=== PATIENT | male | born 1960 | race Caucasian/White ===

== ENCOUNTER → 2019-04-28 | Outpatient (REF) | payer OTHER ==
[2019-04-28 12:24] LABS: HEMOGLOBIN A1c 5.4 %
[2019-04-28 12:28] LABS: ALBUMIN 4.2 GM/DL (3.2-5.2); ALT/SGPT 38 U/L (12-78); BILIRUBIN,TOTAL 0.4 MG/DL (0.2-1.0); BLOOD UREA NITROGEN 16 MG/DL (7-18); CARBON DIOXIDE LEVEL 25 MEQ/L (21-32); CHLORIDE LEVEL 108 MEQ/L (98-107); CHOLESTEROL LEVEL 170 MG/DL (<200); CHOLESTEROL RISK RATIO 4.857 (<5); CREATININE FOR GFR 1.24 MG/DL (0.70-1.30); GLOMERULAR FILTRATION RATE > 60.0 (>56); GLUCOSE, FASTING 106 MG/DL (70-100); HDL CHOLESTEROL 35 MG/DL (>40); NON-HDL-C 135 MG/DL; POTASSIUM SERUM 4.1 MEQ/L (3.5-5.1); SODIUM LEVEL 141 MEQ/L (136-145); TOTAL PROTEIN 7.9 GM/DL (6.4-8.2); TRIGLYCERIDES LEVEL 517 MG/DL (<150)
[2019-04-28 13:05] LABS: HEMATOCRIT 43.4 % (42.0-52.0); HEMOGLOBIN 15.3 g/dl (13.5-17.5); MEAN CORPUSCULAR HEMOGLOBIN 31.8 pg (27.0-33.0); MEAN CORPUSCULAR HGB CONC 35.3 g/dl (32.0-36.5); MEAN CORPUSCULAR VOLUME 90.2 fl (80.0-96.0); PLATELET COUNT, AUTOMATED 191 10^3/uL (150-450); RED BLOOD COUNT 4.81 10^6/uL (4.30-6.10); WHITE BLOOD COUNT 5.7 10^3/uL (4.0-10.0)
== END ==
LOC: M SFHCPLAZ 10:00
PROVIDERS: ATTEND Nurse Practitioner Family
DX: Z13.228 Encounter for screening for other metabolic disorders (principal)

== ENCOUNTER 2019-05-21 15:22 | Emergency (ER) | payer OTHER, BC ==
[~2019-05-21] VITALS: Ht 177.8 cm; Wt 118.2 kg
[2019-05-21 15:23] VITALS: BP 171/79
[2019-05-21] MEDS ORDERED: LOPE1LIQ18 PO (15:38)
--- NOTE | 2019-05-21 18:52 | REP ---
HISTORY: Pain after trauma earlier today. COMPARISON: None. Four images of the third digit only were obtained in total. There is no acute fracture or destructive osseous lesion involving the third digit of the left hand. Electronically Signed by Omid Carvajal DO 05/22/2019 10:53 A
== END 2019-05-21 16:56 | disposition home or self-care (01) ==
LOC: M ED 15:22
DX: S69.92XA Unspecified injury of left wrist, hand and finger(s), initial encounter (principal); X58.XXXA Exposure to other specified factors, initial encounter; Y92.9 Unspecified place or not applicable; Y93.9 Activity, unspecified; Y99.9 Unspecified external cause status; K50.919 Crohn's disease, unspecified, with unspecified complications; Z79.899 Other long term (current) drug therapy

== ENCOUNTER → 2019-09-22 | Outpatient (REF) | payer OTHER ==
[~2019-09-22] MED LIST: LOPE1LIQ18 PO
[2019-09-22 10:27] LABS: ALBUMIN 4.1 GM/DL (3.2-5.2); ALT/SGPT 33 U/L (12-78); BILIRUBIN,TOTAL 0.4 MG/DL (0.2-1.0); BLOOD UREA NITROGEN 14 MG/DL (7-18); CALCIUM LEVEL 9.5 MG/DL (8.5-10.1); CARBON DIOXIDE LEVEL 24 MEQ/L (21-32); CHLORIDE LEVEL 111 MEQ/L (98-107); CHOLESTEROL LEVEL 181 MG/DL (<200); CHOLESTEROL RISK RATIO 5.323 (<5); CREATININE FOR GFR 1.26 MG/DL (0.70-1.30); GLOMERULAR FILTRATION RATE > 60.0 (>56); GLUCOSE, FASTING 90 MG/DL (70-100); HDL CHOLESTEROL 34 MG/DL (>40); LDL CHOLESTEROL 88 MG/DL (<100); NON-HDL-C 147 MG/DL; POTASSIUM SERUM 4.2 MEQ/L (3.5-5.1); SODIUM LEVEL 143 MEQ/L (136-145); TOTAL PROTEIN 7.6 GM/DL (6.4-8.2); TRIGLYCERIDES LEVEL 296 MG/DL (<150)
== END ==
LOC: M SFHCPLAZ 08:09
PROVIDERS: ATTEND Nurse Practitioner Family
DX: E78.2 Mixed hyperlipidemia (principal); Z12.5 Encounter for screening for malignant neoplasm of prostate; N52.9 Male erectile dysfunction, unspecified
CPT/HCPCS: 36415; 80053; 80061; 84402; 84403; G0103

== ENCOUNTER → 2020-02-12 | Outpatient (REF) | payer OTHER ==
[2020-02-12 11:30] LABS: BASO % 0.2 % (0.0-1.0); EOS # 0.2 10^3/uL (0.0-0.5); HEMATOCRIT 45.3 % (42.0-52.0); HEMOGLOBIN 16.3 g/dl (13.5-17.5); LYMPH # 1.6 10^3/uL (1.5-5.0); LYMPH % 31.8 % (24.0-44.0); MEAN CORPUSCULAR HEMOGLOBIN 32.6 pg (27.0-33.0); MEAN CORPUSCULAR VOLUME 90.6 fl (80.0-96.0); MONO # 0.6 10^3/uL (0.0-0.8); MONO % 11.3 % (0.0-5.0); NEUTROPHILS # 2.7 10^3/uL (1.5-8.5); NEUTROPHILS % 53.5 % (36.0-66.0); PLATELET COUNT, AUTOMATED 166 10^3/uL (150-450); WHITE BLOOD COUNT 5.1 10^3/uL (4.0-10.0)
[2020-02-12 11:48] LABS: HEMOGLOBIN A1c 5.3 %
[2020-02-12 11:58] LABS: ERYTHROCYTE SEDIMENTATION RATE 41 mm/hr (0-20)
[2020-02-12 14:12] LABS: ALBUMIN 3.9 GM/DL (3.2-5.2); ALT/SGPT 27 U/L (12-78); BILIRUBIN,TOTAL 0.4 MG/DL (0.2-1.0); BLOOD UREA NITROGEN 13 MG/DL (7-18); C REACTIVE PROTEIN QUANTITATIV 3.42 MG/DL (0.00-0.30); CALCIUM LEVEL 8.7 MG/DL (8.8-10.2); CARBON DIOXIDE LEVEL 23 MEQ/L (21-32); CHLORIDE LEVEL 109 MEQ/L (98-107); CREATININE FOR GFR 1.18 MG/DL (0.70-1.30); FERRITIN 264 NG/ML (26-388); FREE T4 1.43 NG/DL (0.76-1.46); GLOMERULAR FILTRATION RATE > 60.0 (>49); GLUCOSE, FASTING 127 MG/DL (70-100); IRON (FE) 73 UG/DL (65-175); POTASSIUM SERUM 4.2 MEQ/L (3.5-5.1); RHEUMATOID FACTOR QUANT < 10.0 IU/ML (<15.0); SODIUM LEVEL 141 MEQ/L (136-145); TOTAL PROTEIN 7.8 GM/DL (6.4-8.2); VITAMIN B12 LEVEL 399 PG/ML (247-911)
[2020-02-14 08:06] LABS: ANA (HEP2) Negative (.); CYCLIC CITRULLINATED PEPTIDE 8 units (0-19); Lyme Disease IgG/IgM Antibodie <0.91 ISR (0.00-0.90); Lyme Disease IgM Ab Quantitati <0.80 index (0.00-0.79)
== END ==
LOC: M SFHCPLAZ 09:10
PROVIDERS: ATTEND Physician Assistant Medical
DX: R53.82 Chronic fatigue, unspecified (principal); Z87.828 Personal history of other (healed) physical injury and trauma

== ENCOUNTER → 2020-03-01 | Outpatient (CLI) | payer BC, OTHER ==
--- NOTE | 2020-03-02 02:33 | REPPI ---
Clinical: Lower back pain. Technique: AP, lateral, bilateral oblique and coned-down views of the lumbosacral spine. Findings: Alignment and lordosis maintained. No acute fracture / compression injury or subluxation. Moderate multilevel degenerative changes includes endplate sclerosis, marginal spurring, and hypertrophic facet changes. Findings most pronounced at L5-S1, L4-5, and L3-4. Impression: Moderate multilevel degenerative spondylosis. Electronically Signed by Luke Landon MD 03/02/2020 02:24 A
== END ==
LOC: M PLAIMG 08:51
PROVIDERS: ATTEND Physician Assistant Medical
DX: M51.36 Other intervertebral disc degeneration, lumbar region (principal); M47.816 Spondylosis without myelopathy or radiculopathy, lumbar region

== ENCOUNTER → 2020-03-29 | Outpatient (CLI) | payer OTHER ==
--- NOTE | 2020-03-29 09:18 | REPPI ---
Clinical: Arthralgia. Technique: AP and lateral views of the right knee. Findings: Patellar tendinopathy is noted with overlying mild prepatellar soft tissue swelling. Medial lateral tibiofemoral compartments appear normal. No acute fracture dislocation. No obvious effusion. Impression: Patellofemoral degenerative changes. Electronically Signed by Luke Landon MD 03/29/2020 09:10 A
== END ==
LOC: M PLAIMG 08:52
PROVIDERS: ATTEND Physician Assistant Medical
DX: M17.11 Unilateral primary osteoarthritis, right knee (principal)

== ENCOUNTER → 2020-03-29 | Outpatient (REF) | payer OTHER ==
[2020-03-29 13:26] LABS: CHOLESTEROL RISK RATIO 6.193 (<5)
[2020-03-29 14:00] LABS: MALB URINE SIEMENS 7.3 MG/L; MAU/CREAT RATIO 6.7 MCG/MG (0.0-30.0)
[2020-03-29 15:09] LABS: HEMOGLOBIN A1c 5.3 %
== END ==
LOC: M SFHCPLAZ 08:51
PROVIDERS: ATTEND Physician Assistant Medical
DX: Z13.1 Encounter for screening for diabetes mellitus (principal); Z13.220 Encounter for screening for lipoid disorders; Z12.5 Encounter for screening for malignant neoplasm of prostate; R53.82 Chronic fatigue, unspecified
CPT/HCPCS: 36415; 80061; 82043; 82550; 83036; G0103

== ENCOUNTER 2020-06-09 14:02 | Emergency (ER) | payer OTHER, BC ==
[~2020-06-09] VITALS: Ht 177.8 cm; Wt 116.0 kg
--- NOTE | 2020-06-09 15:12 | REPVR ---
PROCEDURE INFORMATION: Exam: XR Right Shoulder Exam date and time: 06/09/2020 3:02 PM Age: 60 years old Clinical indication: Injury or trauma; Fall; Initial encounter; Blunt trauma (contusions or hematomas); Shoulder; Right; Additional info: Fell into ditch TECHNIQUE: Imaging protocol: XR Right shoulder. Views: 2 or more views. COMPARISON: No relevant prior studies available. FINDINGS: Bones/joints: Mild to moderate acromioclavicular joint DJD. No acute fracture. No dislocation. Soft tissues: Normal. IMPRESSION: No acute osseous abnormality. Electronically signed by: Janelle Mcneil On 06/09/2020 15:11:39 PM
--- NOTE | 2020-06-09 15:13 | REPVR ---
PROCEDURE INFORMATION: Exam: XR Right Knee Exam date and time: 06/09/2020 3:02 PM Age: 60 years old Clinical indication: Injury or trauma; Fall; Work related; Initial encounter; Blunt trauma; Knee; Right; Additional info: Fell into ditch TECHNIQUE: Imaging protocol: XR Right knee. Views: 4 or more views. COMPARISON: CR KNEE PARTIAL (AP/LAT) 03/29/2020 9:05 AM FINDINGS: Bones/joints: Superior and inferior patellar enthesophytes. No acute fracture. No dislocation. Mild lateral patellar tilt and subluxation. Mild degenerative change of the patellofemoral compartment. Soft tissues: Normal. IMPRESSION: No acute osseous abnormality. Electronically signed by: Janelle Mcneil On 06/09/2020 15:13:13 PM
[2020-06-09] MEDS ORDERED: NORCO, ANEXSIA 5/325MG TABLET (HYDROcodone/ACETAMINOPHEN) PO ONE (15:30)
[2020-06-09 15:35] VITALS: BP 133/69
[2020-06-09] MEDS ORDERED: NORC1TAB7 PO (15:45)
== END 2020-06-09 15:56 | disposition home or self-care (01) ==
LOC: M ED 14:02
DX: S80.811A Abrasion, right lower leg, initial encounter (principal); S80.01XA Contusion of right knee, initial encounter; S43.401A Unspecified sprain of right shoulder joint, initial encounter; W01.10XA Fall on same level from slipping, tripping and stumbling with subsequent striking against unspecified object, initial encounter; Y92.89 Other specified places as the place of occurrence of the external cause; Y93.9 Activity, unspecified; Y99.0 Civilian activity done for income or pay; F17.200 Nicotine dependence, unspecified, uncomplicated

== ENCOUNTER → 2020-11-19 | Outpatient (CLI) | payer OTHER, BC ==
[~2020-11-19] MED LIST changes: +ALEV220T22 PO; +NORC1TAB7 PO
--- NOTE | 2020-11-19 20:29 | ECGEPIP ---
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
== END ==
LOC: M EKG 11:25
PROVIDERS: ATTEND Anesthesiology
DX: Z01.812 Encounter for preprocedural laboratory examination (principal)

== ENCOUNTER → 2020-11-19 | Outpatient (CLI) | payer OTHER, BC | LOC: M LABSMTC 11:12 | PROVIDERS: ATTEND Anesthesiology | DX: Z01.812 Encounter for preprocedural laboratory examination (principal); Z20.822 Contact with and (suspected) exposure to COVID-19 ==

== ENCOUNTER 2020-11-24 06:00 | Day surgery (SDC) | payer OTHER ==
[~2020-11-24] VITALS: Ht 177.8 cm; Wt 118.4 kg
[~2020-11-24 06:00] MED LIST changes: +LIDOCAINE 1% MDV 20ML VIAL SQ PRN; +LR 1,000 ML IV ONE; +ceFAZolin SOD 2 GM in IV 1 EA IV ONE
--- OUTSIDE RECORDS SUMMARY | 2020-11-24 06:04 | CCD | Continuity of Care Document ---
Author Author Eduardo HERNANDEZ P.T. Organization Unknown Address [address] [place] [address] [address] [place] [address] Phone [phone] Care Team Providers Care Microbiology Supervisor Name Role Phone Yvette Cooper AUTM [phone] Kishor Mays MD AUT Unavailable Problems Description No Information Available Social History Type Date Description Comments Sex Unknown Tobacco Use Start: Unknown Patient is a current smoker, smo kes every day Smoking Status Reviewed: 06/11/20 Patient is a current smoker, smokes every day Allergies, Adverse Reactions, Alerts Description No Known Drug Allergies Medications Active Medications SIG Qnty Indications Ordering Provide r Date Tramadol HCL 50mg Tablets 1 tab before bed 14tabs S46.011A Wesley Waite MD 0 Tadalafil 20mg Tablets Yvette Cooper FNP Gabapentin 100mg Capsules Radha Hudson, RPA-C Celecoxib 100mg Capsules Radha Hudson, RPA-C Fluticasone Propionate 50mcg/Act Suspension Radha Hudson, RPA-C 0 Immunizations Description No Information Available Vital Signs Date Vital Result Comment 06/11/2020 11:47am Body Temperature 96.7 F Height 70 inches 5'10" Weight 245.00 lb BMI (Body Mass Index) 35.1 kg/m2 Results Description No Information Available Procedures Date Code Description Status 11/03/2020 97146 Therapeutic Procedure, Each 15 M inutes Completed 11/03/2020 79407 Therapeutic Procedure, Each 15 M inutes Completed 11/03/2020 00160 Electrical Stimulati on Manual, Each 15 Min, Constant Attendance Completed 11/03/2020 97242 Hot Or Cold Packs Completed 10/29/2020 96831 Therapeutic Procedure, Each 15 M inutes Completed 10/26/2020 43611 Therapeutic Procedure, Each 15 M inutes Completed 10/26/2020 39787 Therapeutic Procedure, Each 15 M inutes Completed 10/26/2020 90393 Electrical Stimulati on Manual, Each 15 Min, Constant Attendance Completed 10/26/2020 40372 Hot Or Cold Packs Completed 10/05/2020 60782 Therapeutic Procedure, Each 15 M inutes Completed 10/05/2020 30355 Therapeutic Procedure, Each 15 M inutes Completed 09/30/2020 98978 Hot Or Cold Packs Completed 09/30/2020 11928 Electrical Stimulati on Manual, Each 15 Min, Constant Attendance Completed 09/30/2020 74415 Therapeutic Procedure, Each 15 M inutes Completed 09/30/2020 62995 Re-Eval Of PT Establ ished Plan Of Care 20Mins Face To Face PT/Fam Completed 09/28/2020 44231 Therapeutic Procedure, Each 15 M inutes Completed 09/28/2020 91042 Therapeutic Procedure, Each 15 M inutes Completed 09/28/2020 56038 Electrical Stimulati on Manual, Each 15 Min, Constant Attendance Completed 09/28/2020 00635 Hot Or Cold Packs Completed 09/21/2020 14091 Therapeutic Procedure, Each 15 M inutes Completed 09/21/2020 36740 Therapeutic Procedure, Each 15 M inutes Completed 09/21/2020 27780 Electrical Stimulati on Manual, Each 15 Min, Constant Attendance Completed 09/21/2020 97764 Hot Or Cold Packs Completed 09/16/2020 85980 Therapeutic Procedure, Each 15 M inutes Completed 09/16/2020 57719 Therapeutic Procedure, Each 15 M inutes Completed 09/16/2020 05080 Electrical Stimulati on Manual, Each 15 Min, Constant Attendance Completed 09/16/2020 84094 Hot Or Cold Packs Completed 09/14/2020 68762 Hot Or Cold Packs Completed 09/14/2020 48818 Electrical Stimulati on Manual, Each 15 Min, Constant Attendance Completed 09/14/2020 32927 Therapeutic Procedure, Each 15 M inutes Completed 09/14/2020 54714 Therapeutic Procedure, Each 15 M inutes Completed 09/09/2020 69555 Therapeutic Procedure, Each 15 M inutes Completed 09/09/2020 68537 Therapeutic Procedure, Each 15 M inutes Completed 09/09/2020 33318 Ultrasound, Each 15 Min, Constan t Attendance Completed 08/30/2020 68354 Inject/Drain Joint/Bursa Major C ompleted 08/20/2020 35677 Re-Eval Of PT Establ ished Plan Of Care 20Mins Face To Face PT/Fam Completed 08/20/2020 83355 Therapeutic Procedure, Each 15 M inutes Completed 08/20/2020 75470 Therapeutic Procedure, Each 15 M inutes Completed 08/20/2020 08054 Electrical Stimulati on Manual, Each 15 Min, Constant Attendance Completed 08/20/2020 92427 Hot Or Cold Packs Completed 08/18/2020 32492 Hot Or Cold Packs Completed 08/18/2020 89184 Electrical Stimulati on Manual, Each 15 Min, Constant Attendance Completed 08/18/2020 17112 Therapeutic Procedure, Each 15 M inutes Completed 08/18/2020 01368 Therapeutic Procedure, Each 15 M inutes Completed 08/12/2020 23096 Therapeutic Procedure, Each 15 M inutes Completed 08/12/2020 07377 Therapeutic Procedure, Each 15 M inutes Completed 08/10/2020 66712 Therapeutic Procedure, Each 15 M inutes Completed 08/10/2020 58088 Therapeutic Procedure, Each 15 M inutes Completed 08/05/2020 56386 Therapeutic Procedure, Each 15 M inutes Completed 08/05/2020 01053 Therapeutic Procedure, Each 15 M inutes Completed 08/03/2020 37359 Therapeutic Procedure, Each 15 M inutes Completed 08/03/2020 94369 Hot Or Cold Packs Completed 07/29/2020 26359 Physical Therapy Eval - Low Comp lexity Completed 06/24/2020 92347 MRI Upper Extremity Any Joint Co mpleted Medical Devices Description No Information Available Encounters Type Date Location Provider Dx Diagnosis Office Visit 10/04/2020 8:30a Brenda Waite MD S46. 011D Strain of musc/tend the rotator cuff of right shoulder, subs Office Visit 08/30/2020 9:30a Brenda Waite MD S46. 011D Strain of musc/tend the rotator cuff of right shoulder, subs Office Visit 07/15/2020 9:00a Brenda Waite MD S46. 011A Strain of musc/tend the rotator cuff of right shoulder, init S80.01xD Contusion of right knee, sub sequent encounter Office Visit 06/11/2020 11:15a Brenda Waite MD S46. 011A Strain of musc/tend the rotator cuff of right shoulder, init S80.01xA Contusion of right knee, ini tial encounter Assessments Date Code Description Provider 11/03/2020 S46.011D Strain of muscle(s) and tendon(s) of the rotator cuff of right shoulder, subsequent encounter Sanjay Hernandez P.T. 10/29/2020 S46.011D Strain of muscle(s) and tendon(s) of the rotator cuff of right shoulder, subsequent encounter Sanjay Hernandez P.T. 10/26/2020 S46.011D Strain of muscle(s) and tendon(s) of the rotator cuff of right shoulder, subsequent encounter Sanjay Hernandez P.T. 10/05/2020 S46.011D Strain of muscle(s) and tendon(s) of the rotator cuff of right shoulder, subsequent encounter Sanjay Hernandez P.T. 10/04/2020 S46.011D Strain of muscle(s) and tendon(s) of the rotator cuff of right shoulder, subsequent encounter Wesley Waite MD 09/30/2020 S46.011D Strain of muscle(s) and tendon(s) of the rotator cuff of right shoulder, subsequent encounter Sanjay Hernandez P.T. 09/28/2020 S46.011D Strain of muscle(s) and tendon(s) of the rotator cuff of right shoulder, subsequent encounter Sanjay Contreras Cook P.T. 09/21/2020 S46.011D Strain of muscle(s) and tendon(s) of the rotator cuff of right shoulder, subsequent encounter Sanjay Contreras Cook P.T. 09/16/2020 S46.011D Strain of muscle(s) and tendon(s) of the rotator cuff of right shoulder, subsequent encounter Sanjay Hernandez P.T. 09/14/2020 S46.011D Strain of muscle(s) and tendon(s) of the rotator cuff of right shoulder, subsequent encounter Sanjay Hernandez P.T. 09/09/2020 S46.011D Strain of muscle(s) and tendon(s) of the rotator cuff of right shoulder, subsequent encounter Sanjay Hernandez P.T. 08/30/2020 S46.011D Strain of muscle(s) and tendon(s) of the rotator cuff of right shoulder, subsequent encounter Wesley Waite MD 08/20/2020 S46.011D Strain of muscle(s) and tendon(s) of the rotator cuff of right shoulder, subsequent encounter Sanjay Hernandez P.T. 08/18/2020 S46.011D Strain of muscle(s) and tendon(s) of the rotator cuff of right shoulder, subsequent encounter Sanjay Hernandez P.T. 08/12/2020 S46.011D Strain of muscle(s) and tendon(s) of the rotator cuff of right shoulder, subsequent encounter Mahad Angeles, PT, DPT 08/10/2020 S46.011D Strain of muscle(s) and tendon(s) of the rotator cuff of right shoulder, subsequent encounter Mahad Angeles, PT, DPT 08/05/2020 S46.011D Strain of muscle(s) and tendon(s) of the rotator cuff of right shoulder, subsequent encounter Sanjay Hernandez P.T. 08/03/2020 S46.011D Strain of muscle(s) and tendon(s) of the rotator cuff of right shoulder, subsequent encounter Sanjay Hernandez P.T. 07/29/2020 S46.011D Strain of muscle(s) and tendon(s) of the rotator cuff of right shoulder, subsequent encounter Sanjay Hernandez P.T. 07/15/2020 S46.011A Strain of muscle(s) and tendon(s) of the rotator cuff of right shoulder, initial encounter Wesley Waite MD 07/15/2020 S80.01xD Contusion of right knee, subsequ ent encounter Wesley Waite MD 06/24/2020 S46.011A Strain of muscle(s) and tendon(s) of the rotator cuff of right shoulder, initial encounter Wesley Waite MD 06/24/2020 S46.011A Strain of muscle(s) and tendon(s) of the rotator cuff of right shoulder, initial encounter MRI 06/11/2020 S46.011A Strain of muscle(s) and tendon(s) of the rotator cuff of right shoulder, initial encounter Wesley Waite MD 06/11/2020 S80.01xA Contusion of right knee, initial encounter Wesley Waite MD Plan of Treatment Future Appointment(s):* 11/09/2020 11:30 am - Sanjay CondonTMarva at Physical Therapy * 11/11/2020 11:30 am - Sanjay Hernandez P.T. at Physical Therapy * 11/05/2020 10:00 am - Sanjay Hernandez P.T. at Physical Therapy Functional Status Description No Information Available Mental Status Description No Information Available Referrals Refer to Reason for Referral Status Appt Date Wesley Waite MD PT RT SHOULDER WRITTEN AUTH PASSED TO PT DEPT. Created [address] [place] [address] [phone] Wesley Waite MD PT- RT SHOULDER OK TO [facility] 2N D SET PASSED TO PT DEPT. Created [facility] [place] [address] [phone] Wesley Waite MD PT- RT SHOULDER OK TO [facility] 1S T SET PASSED TO PT DEPT. Created [facility] [place] [address] [phone] Wesley Waite MD MRI RT SHOULDER OK TO [facility] PER MTGS. P ASSED TO XRAY. Created [facility] [place] [address] [phone]
--- OUTSIDE RECORDS SUMMARY | 2020-11-24 06:04 | CCD ---
Continuity of Care Document (CCD) Created on: 10/22/2020 Eduardo Berman External Reference #: [id number] : 1960 Sex: Male Author Author Eduardo HURT MD Organization Unknown Address [id number] [place] [address] , [facility] [address] [place] [address] Phone [phone] Care Team Providers Care Meal Cook Name Role Phone Joanne Cooper [facility] [phone] Problems Description No Information Available Social History Type Date Description Comments Sex Unknown Allergies, Adverse Reactions, Alerts Description No Known Drug Allergies Medications Active Medications SIG Qnty Indications Ordering Provide r Date Cialis 2.5mg Tablets Unknown Immunizations Description No Information Available Vital Signs Date Vital Result Comment 10/22/2020 9:39am Body Temperature 98.7 F Height 71 inches 5'11" Weight 257.00 lb BMI (Body Mass Index) 35.8 kg/m2 [place] Body Weight 172 lb Weight 116.575 kg BSA (Body Surface Area) 2.35 m2 Results Description No Information Available Procedures Description No Information Available Medical Devices Description No Information Available Encounters Description No Information Available Assessments Description No Information Available Plan of Treatment No Information Available Functional Status Description No Information Available Mental Status Description No Information Available Referrals Description No Information Available
--- OUTSIDE RECORDS SUMMARY | 2020-11-24 06:04 | CCD | Continuity of Care Document ---
Author Author Eduardo HERNANDEZ P.T. Organization Unknown Address [address] [place] [address] [address] [place] [address] Phone [phone] Care Team Providers Care Credit Collections Clerk Name Role Phone Yvette Cooper AUTM [phone] Kishor Mays MD AUT Unavailable Problems Description [...] Available Procedures Date Code Description Status 11/03/2020 04733 Therapeutic Procedure, Each 15 M inutes Completed 11/03/2020 16515 Therapeutic Procedure, Each 15 M inutes Completed 11/03/2020 28594 Electrical Stimulati on Manual, Each 15 Min, Constant Attendance Completed 11/03/2020 97031 Hot Or Cold Packs Completed 10/29/2020 46975 Therapeutic Procedure, Each 15 M inutes Completed 10/26/2020 37492 Therapeutic Procedure, Each 15 M inutes Completed 10/26/2020 49078 Therapeutic Procedure, Each 15 M inutes Completed 10/26/2020 18303 Electrical Stimulati on Manual, Each 15 Min, Constant Attendance Completed 10/26/2020 84458 Hot Or Cold Packs Completed 10/05/2020 64986 Therapeutic Procedure, Each 15 M inutes Completed 10/05/2020 11708 Therapeutic Procedure, Each 15 M inutes Completed 09/30/2020 85824 Hot Or Cold Packs Completed 09/30/2020 10500 Electrical Stimulati on Manual, Each 15 Min, Constant Attendance Completed 09/30/2020 50295 Therapeutic Procedure, Each 15 M inutes Completed 09/30/2020 45586 Re-Eval Of PT Establ ished Plan Of Care 20Mins Face To Face PT/Fam Completed 09/28/2020 51692 Therapeutic Procedure, Each 15 M inutes Completed 09/28/2020 77655 Therapeutic Procedure, Each 15 M inutes Completed 09/28/2020 24014 Electrical Stimulati on Manual, Each 15 Min, Constant Attendance Completed 09/28/2020 66817 Hot Or Cold Packs Completed 09/21/2020 88984 Therapeutic Procedure, Each 15 M inutes Completed 09/21/2020 16638 Therapeutic Procedure, Each 15 M inutes Completed 09/21/2020 64585 Electrical Stimulati on Manual, Each 15 Min, Constant Attendance Completed 09/21/2020 50615 Hot Or Cold Packs Completed 09/16/2020 15074 Therapeutic Procedure, Each 15 M inutes Completed 09/16/2020 47812 Therapeutic Procedure, Each 15 M inutes Completed 09/16/2020 74112 Electrical Stimulati on Manual, Each 15 Min, Constant Attendance Completed 09/16/2020 43275 Hot Or Cold Packs Completed 09/14/2020 89162 Hot Or Cold Packs Completed 09/14/2020 39315 Electrical Stimulati on Manual, Each 15 Min, Constant Attendance Completed 09/14/2020 24976 Therapeutic Procedure, Each 15 M inutes Completed 09/14/2020 79732 Therapeutic Procedure, Each 15 M inutes Completed 09/09/2020 29371 Therapeutic Procedure, Each 15 M inutes Completed 09/09/2020 36922 Therapeutic Procedure, Each 15 M inutes Completed 09/09/2020 32334 Ultrasound, Each 15 Min, Constan t Attendance Completed 08/30/2020 21409 Inject/Drain Joint/Bursa Major C ompleted 08/20/2020 39557 Re-Eval Of PT Establ ished Plan Of Care 20Mins Face To Face PT/Fam Completed 08/20/2020 90217 Therapeutic Procedure, Each 15 M inutes Completed 08/20/2020 30854 Therapeutic Procedure, Each 15 M inutes Completed 08/20/2020 40732 Electrical Stimulati on Manual, Each 15 Min, Constant Attendance Completed 08/20/2020 28922 Hot Or Cold Packs Completed 08/18/2020 36128 Hot Or Cold Packs Completed 08/18/2020 03715 Electrical Stimulati on Manual, Each 15 Min, Constant Attendance Completed 08/18/2020 72788 Therapeutic Procedure, Each 15 M inutes Completed 08/18/2020 16522 Therapeutic Procedure, Each 15 M inutes Completed 08/12/2020 53024 Therapeutic Procedure, Each 15 M inutes Completed 08/12/2020 75613 Therapeutic Procedure, Each 15 M inutes Completed 08/10/2020 44701 Therapeutic Procedure, Each 15 M inutes Completed 08/10/2020 38602 Therapeutic Procedure, Each 15 M inutes Completed 08/05/2020 88184 Therapeutic Procedure, Each 15 M inutes Completed 08/05/2020 10410 Therapeutic Procedure, Each 15 M inutes Completed 08/03/2020 84595 Therapeutic Procedure, Each 15 M inutes Completed 08/03/2020 20394 Hot Or Cold Packs Completed 07/29/2020 17747 Physical Therapy Eval - Low Comp lexity Completed 06/24/2020 63121 MRI Upper Extremity Any Joint Co mpleted [...] AUTH PASSED TO PT DEPT. Created [address] [place] [address] [phone] Wesley Waite MD PT- RT SHOULDER OK TO [facility] 2N D SET PASSED TO PT DEPT. Created [facility] [place] [address] [phone] Wesley Waite MD PT- RT SHOULDER OK TO [facility] 1S T SET PASSED TO PT DEPT. Created [facility] [place] [address] [phone] Wesley Waite MD MRI RT SHOULDER OK TO [facility] PER MTGS. P ASSED TO XRAY. Created [facility] [place] [address] [phone]
--- OUTSIDE RECORDS SUMMARY | 2020-11-24 06:04 | CCD | Continuity of Care Document ---
Author Author Eduardo HERNANDEZ P.T. Organization Unknown Address [address] [place] [address] [address] [place] [address] Phone [phone] Care Team Providers Care Grinder Machine Knife Setter Name Role Phone Yvette Cooper AUTM [phone] Kishor Mays MD AUT Unavailable Problems Description [...] Wesley Waite MD 0 Tadalafil 20mg Tablets Yvtete Cooper FNP Gabapentin 100mg Capsules Radha Hudson, RPA-C Celecoxib 100mg Capsules Radha Hudson, RPA-C Fluticasone Propionate 50mcg/Act Suspension Radha Hudson, RPA-C 0 Immunizations Description No Information Available Vital Signs Date Vital Result Comment 06/11/2020 11:47am Body Temperature 96.7 F Height 70 inches 5'10" Weight 245.00 lb BMI (Body Mass Index) 35.1 kg/m2 Results Description No Information Available Procedures Date Code Description Status 11/03/2020 82081 Therapeutic Procedure, Each 15 M inutes Completed 11/03/2020 08279 Therapeutic Procedure, Each 15 M inutes Completed 11/03/2020 33973 Electrical Stimulati on Manual, Each 15 Min, Constant Attendance Completed 11/03/2020 39513 Hot Or Cold Packs Completed 10/29/2020 72447 Therapeutic Procedure, Each 15 M inutes Completed 10/26/2020 74891 Therapeutic Procedure, Each 15 M inutes Completed 10/26/2020 27676 Therapeutic Procedure, Each 15 M inutes Completed 10/26/2020 95798 Electrical Stimulati on Manual, Each 15 Min, Constant Attendance Completed 10/26/2020 93872 Hot Or Cold Packs Completed 10/05/2020 58531 Therapeutic Procedure, Each 15 M inutes Completed 10/05/2020 46757 Therapeutic Procedure, Each 15 M inutes Completed 09/30/2020 65394 Hot Or Cold Packs Completed 09/30/2020 75721 Electrical Stimulati on Manual, Each 15 Min, Constant Attendance Completed 09/30/2020 14239 Therapeutic Procedure, Each 15 M inutes Completed 09/30/2020 96468 Re-Eval Of PT Establ ished Plan Of Care 20Mins Face To Face PT/Fam Completed 09/28/2020 59715 Therapeutic Procedure, Each 15 M inutes Completed 09/28/2020 56866 Therapeutic Procedure, Each 15 M inutes Completed 09/28/2020 00838 Electrical Stimulati on Manual, Each 15 Min, Constant Attendance Completed 09/28/2020 74577 Hot Or Cold Packs Completed 09/21/2020 59707 Therapeutic Procedure, Each 15 M inutes Completed 09/21/2020 94461 Therapeutic Procedure, Each 15 M inutes Completed 09/21/2020 19074 Electrical Stimulati on Manual, Each 15 Min, Constant Attendance Completed 09/21/2020 00285 Hot Or Cold Packs Completed 09/16/2020 05381 Therapeutic Procedure, Each 15 M inutes Completed 09/16/2020 53291 Therapeutic Procedure, Each 15 M inutes Completed 09/16/2020 51524 Electrical Stimulati on Manual, Each 15 Min, Constant Attendance Completed 09/16/2020 31481 Hot Or Cold Packs Completed 09/14/2020 77790 Hot Or Cold Packs Completed 09/14/2020 40039 Electrical Stimulati on Manual, Each 15 Min, Constant Attendance Completed 09/14/2020 11013 Therapeutic Procedure, Each 15 M inutes Completed 09/14/2020 12618 Therapeutic Procedure, Each 15 M inutes Completed 09/09/2020 79860 Therapeutic Procedure, Each 15 M inutes Completed 09/09/2020 22616 Therapeutic Procedure, Each 15 M inutes Completed 09/09/2020 87619 Ultrasound, Each 15 Min, Constan t Attendance Completed 08/30/2020 51508 Inject/Drain Joint/Bursa Major C ompleted 08/20/2020 58789 Re-Eval Of PT Establ ished Plan Of Care 20Mins Face To Face PT/Fam Completed 08/20/2020 43860 Therapeutic Procedure, Each 15 M inutes Completed 08/20/2020 65064 Therapeutic Procedure, Each 15 M inutes Completed 08/20/2020 82299 Electrical Stimulati on Manual, Each 15 Min, Constant Attendance Completed 08/20/2020 62342 Hot Or Cold Packs Completed 08/18/2020 43943 Hot Or Cold Packs Completed 08/18/2020 01981 Electrical Stimulati on Manual, Each 15 Min, Constant Attendance Completed 08/18/2020 14810 Therapeutic Procedure, Each 15 M inutes Completed 08/18/2020 35751 Therapeutic Procedure, Each 15 M inutes Completed 08/12/2020 61363 Therapeutic Procedure, Each 15 M inutes Completed 08/12/2020 67370 Therapeutic Procedure, Each 15 M inutes Completed 08/10/2020 43327 Therapeutic Procedure, Each 15 M inutes Completed 08/10/2020 16036 Therapeutic Procedure, Each 15 M inutes Completed 08/05/2020 05401 Therapeutic Procedure, Each 15 M inutes Completed 08/05/2020 28655 Therapeutic Procedure, Each 15 M inutes Completed 08/03/2020 98006 Therapeutic Procedure, Each 15 M inutes Completed 08/03/2020 91191 Hot Or Cold Packs Completed 07/29/2020 16294 Physical Therapy Eval - Low Comp lexity Completed 06/24/2020 24022 MRI Upper Extremity Any Joint Co mpleted [...] AUTH PASSED TO PT DEPT. Created [address] [place] [address] [phone] Wesley Waite MD PT- RT SHOULDER OK TO [facility] 2N D SET PASSED TO PT DEPT. [place] [facility] [place] [address] [phone] Wesley Waite MD PT- RT SHOULDER OK TO [facility] 1S T SET PASSED TO PT DEPT. Created [facility] [place] [address] [phone] Wesley Waite MD MRI RT SHOULDER OK TO [facility] PER MTGS. P ASSED TO XRAY. Created [facility] [place] [address] [phone]
--- OUTSIDE RECORDS SUMMARY | 2020-11-24 06:04 | CCD | Continuity of Care Document ---
Author Author Eduardo HERNANDEZ P.T. Organization Unknown Address [address] [place] [address] [address] [place] [address] Phone [phone] Care Team Providers Care Heater Installer Name Role Phone Yvette CooperP AUTM [phone] Kishor Mays MD AUT Unavailable Problems Description [...] Information Available Procedures Date Code Description Status 10/05/2020 91830 Therapeutic Procedure, Each 15 M inutes Completed 10/05/2020 71603 Therapeutic Procedure, Each 15 M inutes Completed 09/30/2020 14740 Re-Eval Of PT Establ ished Plan Of Care 20Mins Face To Face PT/Fam Completed 09/30/2020 77621 Therapeutic Procedure, Each 15 M inutes Completed 09/30/2020 59044 Electrical Stimulati on Manual, Each 15 Min, Constant Attendance Completed 09/30/2020 85639 Hot Or Cold Packs Completed 09/28/2020 69560 Therapeutic Procedure, Each 15 M inutes Completed 09/28/2020 59791 Therapeutic Procedure, Each 15 M inutes Completed 09/28/2020 18113 Electrical Stimulati on Manual, Each 15 Min, Constant Attendance Completed 09/28/2020 54943 Hot Or Cold Packs Completed 09/21/2020 19742 Hot Or Cold Packs Completed 09/21/2020 85031 Electrical Stimulati on Manual, Each 15 Min, Constant Attendance Completed 09/21/2020 04418 Therapeutic Procedure, Each 15 M inutes Completed 09/21/2020 95253 Therapeutic Procedure, Each 15 M inutes Completed 09/16/2020 75100 Therapeutic Procedure, Each 15 M inutes Completed 09/16/2020 20061 Therapeutic Procedure, Each 15 M inutes Completed 09/16/2020 54905 Electrical Stimulati on Manual, Each 15 Min, Constant Attendance Completed 09/16/2020 65736 Hot Or Cold Packs Completed 09/14/2020 35195 Therapeutic Procedure, Each 15 M inutes Completed 09/14/2020 88933 Therapeutic Procedure, Each 15 M inutes Completed 09/14/2020 51532 Electrical Stimulati on Manual, Each 15 Min, Constant Attendance Completed 09/14/2020 94301 Hot Or Cold Packs Completed 09/09/2020 77225 Ultrasound, Each 15 Min, Constan t Attendance Completed 09/09/2020 91729 Therapeutic Procedure, Each 15 M inutes Completed 09/09/2020 04914 Therapeutic Procedure, Each 15 M inutes Completed 08/30/2020 98871 Inject/Drain Joint/Bursa Major C ompleted 08/20/2020 54197 Re-Eval Of PT Establ ished Plan Of Care 20Mins Face To Face PT/Fam Completed 08/20/2020 89583 Therapeutic Procedure, Each 15 M inutes Completed 08/20/2020 85104 Therapeutic Procedure, Each 15 M inutes Completed 08/20/2020 82880 Electrical Stimulati on Manual, Each 15 Min, Constant Attendance Completed 08/20/2020 14806 Hot Or Cold Packs Completed 08/18/2020 60193 Hot Or Cold Packs Completed 08/18/2020 90275 Electrical Stimulati on Manual, Each 15 Min, Constant Attendance Completed 08/18/2020 34075 Therapeutic Procedure, Each 15 M inutes Completed 08/18/2020 81934 Therapeutic Procedure, Each 15 M inutes Completed 08/12/2020 67764 Therapeutic Procedure, Each 15 M inutes Completed 08/12/2020 93645 Therapeutic Procedure, Each 15 M inutes Completed 08/10/2020 63076 Therapeutic Procedure, Each 15 M inutes Completed 08/10/2020 78793 Therapeutic Procedure, Each 15 M inutes Completed 08/05/2020 50933 Therapeutic Procedure, Each 15 M inutes Completed 08/05/202093446 Therapeutic Procedure, Each 15 M inutes Completed 08/03/202011130 Therapeutic Procedure, Each 15 M inutes Completed 08/03/2020 28234 Hot Or Cold Packs Completed 07/29/2020 82051 Physical Therapy Eval - Low Comp lexity Completed 06/24/2020 98422 MRI Upper Extremity Any Joint Co mpleted [...] tial encounter Assessments Date Code Description Provider 10/05/2020 S46.011D Strain of muscle(s) and tendon(s) [...] right shoulder, subsequent encounter Sanjay Hernandez P.T. 09/21/2020 S46.011D Strain of muscle(s) and tendon(s) of the rotator cuff of right shoulder, subsequent encounter Sanjay Hernandez P.T. 09/16/2020 S46.011D Strain of muscle(s) and [...] Waite MD Plan of Treatment Future Appointment(s):* 10/29/2020 8:30 am - Tyler Luna MD at [place] 10/04/2020 - Wesley Waite MD* S46.011D Strain of muscle(s) and tendon(s) of the rotator cuff of right shoulder, subsequent encounter* New Orders:* Referral, Ordered: 10/04/20 * Follow up:* with [facility] for rt shoulder surge eval Functional Status Description No Information Available Mental Status Description No Information Available Referrals Refer to Dr Reason for Referral Status Appt Date Wesley Waite MD PT- RT SHOULDER OK TO [facility] 2N D SET PASSED TO PT DEPT. Created [address] [place] [address] [address] [place] [address] [phone] Wesley Waite MD PT- RT SHOULDER OK TO [facility] 1S T SET PASSED TO PT DEPT. Created [address] [place] [address] [phone] Wesley Waite MD MRI RT SHOULDER OK TO [facility] PER [facility]. P ASSED TO XRAY. Created [address] [place] [address] [phone]
--- OUTSIDE RECORDS SUMMARY | 2020-11-24 06:05 | CCD | Continuity of Care Document ---
Author Author Eduardo HERNANDEZ P.T. Organization Unknown Address [address] [place] [address] [address] [place] [address] Phone [phone] Care Team Providers Care Global Consumer Sector Vice President Name Role Phone Yvette CooperP AUTM [phone] Kishor Mays MD AUT Unavailable Problems Description [...] Available Procedures Date Code Description Status 10/05/2020 98090 Therapeutic Procedure, Each 15 M inutes Completed 10/05/2020 98414 Therapeutic Procedure, Each 15 M inutes Completed 09/30/2020 05834 Re-Eval Of PT Establ ished Plan Of Care 20Mins Face To Face PT/Fam Completed 09/30/2020 99304 Therapeutic Procedure, Each 15 M inutes Completed 09/30/2020 73943 Electrical Stimulati on Manual, Each 15 Min, Constant Attendance Completed 09/30/2020 81475 Hot Or Cold Packs Completed 09/28/2020 55644 Therapeutic Procedure, Each 15 M inutes Completed 09/28/2020 13894 Therapeutic Procedure, Each 15 M inutes Completed 09/28/2020 03480 Electrical Stimulati on Manual, Each 15 Min, Constant Attendance Completed 09/28/2020 13408 Hot Or Cold Packs Completed 09/21/2020 84560 Hot Or Cold Packs Completed 09/21/2020 97953 Electrical Stimulati on Manual, Each 15 Min, Constant Attendance Completed 09/21/2020 26711 Therapeutic Procedure, Each 15 M inutes Completed 09/21/2020 77163 Therapeutic Procedure, Each 15 M inutes Completed 09/16/2020 03284 Therapeutic Procedure, Each 15 M inutes Completed 09/16/2020 78039 Therapeutic Procedure, Each 15 M inutes Completed 09/16/2020 38760 Electrical Stimulati on Manual, Each 15 Min, Constant Attendance Completed 09/16/2020 57908 Hot Or Cold Packs Completed 09/14/2020 87921 Therapeutic Procedure, Each 15 M inutes Completed 09/14/2020 85268 Therapeutic Procedure, Each 15 M inutes Completed 09/14/2020 76762 Electrical Stimulati on Manual, Each 15 Min, Constant Attendance Completed 09/14/2020 35356 Hot Or Cold Packs Completed 09/09/2020 78154 Ultrasound, Each 15 Min, Constan t Attendance Completed 09/09/2020 83961 Therapeutic Procedure, Each 15 M inutes Completed 09/09/2020 20599 Therapeutic Procedure, Each 15 M inutes Completed 08/30/2020 31389 Inject/Drain Joint/Bursa Major C ompleted 08/20/2020 70882 Re-Eval Of PT Establ ished Plan Of Care 20Mins Face To Face PT/Fam Completed 08/20/2020 32688 Therapeutic Procedure, Each 15 M inutes Completed 08/20/2020 70052 Therapeutic Procedure, Each 15 M inutes Completed 08/20/2020 46541 Electrical Stimulati on Manual, Each 15 Min, Constant Attendance Completed 08/20/2020 94178 Hot Or Cold Packs Completed 08/18/2020 32281 Hot Or Cold Packs Completed 08/18/2020 50495 Electrical Stimulati on Manual, Each 15 Min, Constant Attendance Completed 08/18/2020 08744 Therapeutic Procedure, Each 15 M inutes Completed 08/18/2020 35368 Therapeutic Procedure, Each 15 M inutes Completed 08/12/2020 07790 Therapeutic Procedure, Each 15 M inutes Completed 08/12/2020 95310 Therapeutic Procedure, Each 15 M inutes Completed 08/10/2020 98678 Therapeutic Procedure, Each 15 M inutes Completed 08/10/2020 00497 Therapeutic Procedure, Each 15 M inutes Completed 08/05/2020 38758 Therapeutic Procedure, Each 15 M inutes Completed 08/05/202006846 Therapeutic Procedure, Each 15 M inutes Completed 08/03/202021966 Therapeutic Procedure, Each 15 M inutes Completed 08/03/2020 51894 Hot Or Cold Packs Completed 07/29/2020 90243 Physical Therapy Eval - Low Comp lexity Completed 06/24/2020 97273 MRI Upper Extremity Any Joint Co mpleted [...] 8:30 am - Tyler Luna MD at [place] 10/04/2020 - Wesley Waite MD* S46.011D Strain [...] D SET PASSED TO PT DEPT. Created [address] [place] [address] [address] [place] [address] [phone] Wesley Waite MD PT- RT SHOULDER OK TO [facility] 1S T SET PASSED TO PT DEPT. Created [address] [place] [address] [phone] Wesley Waite MD MRI RT SHOULDER OK TO [facility] PER [facility]. P ASSED TO XRAY. Created [address] [place] [address] [phone]
--- OUTSIDE RECORDS SUMMARY | 2020-11-24 06:05 | CCD | Continuity of Care Document ---
Author Author Eduardo HERNANDEZ P.T. Organization Unknown Address [address] [place] [address] [address] [place] [address] Phone [phone] Care Team Providers Care Information Security Risk Analyst Name Role Phone Yvette CooperP AUTM [phone] Kishor Mays MD AUT Unavailable Problems Description [...] Information Available Procedures Date Code Description Status 09/16/2020 84935 Therapeutic Procedure, Each 15 M inutes Completed 09/16/2020 10488 Therapeutic Procedure, Each 15 M inutes Completed 09/16/2020 27162 Electrical Stimulati on Manual, Each 15 Min, Constant Attendance Completed 09/16/2020 21485 Hot Or Cold Packs Completed 09/14/2020 21882 Therapeutic Procedure, Each 15 M inutes Completed 09/14/2020 68337 Therapeutic Procedure, Each 15 M inutes Completed 09/14/2020 76756 Electrical Stimulati on Manual, Each 15 Min, Constant Attendance Completed 09/14/2020 28850 Hot Or Cold Packs Completed 09/09/2020 74604 Therapeutic Procedure, Each 15 M inutes Completed 09/09/2020 16263 Therapeutic Procedure, Each 15 M inutes Completed 09/09/2020 19366 Ultrasound, Each 15 Min, Constan t Attendance Completed 08/30/202090698 Inject/Drain Joint/Bursa Major C ompleted 08/20/2020 59516 Hot Or Cold Packs Completed 08/20/2020 21076 Electrical Stimulati on Manual, Each 15 Min, Constant Attendance Completed 08/20/2020 01604 Therapeutic Procedure, Each 15 M inutes Completed 08/20/2020 76568 Therapeutic Procedure, Each 15 M inutes Completed 08/20/2020 71642 Re-Eval Of PT Establ ished Plan Of Care 20Mins Face To Face PT/Fam Completed 08/18/2020 97454 Therapeutic Procedure, Each 15 M inutes Completed 08/18/2020 53360 Therapeutic Procedure, Each 15 M inutes Completed 08/18/2020 28635 Electrical Stimulati on Manual, Each 15 Min, Constant Attendance Completed 08/18/2020 80060 Hot Or Cold Packs Completed 08/12/2020 91777 Therapeutic Procedure, Each 15 M inutes Completed 08/12/2020 63742 Therapeutic Procedure, Each 15 M inutes Completed 08/10/2020 32024 Therapeutic Procedure, Each 15 M inutes Completed 08/10/2020 40693 Therapeutic Procedure, Each 15 M inutes Completed 08/05/2020 45262 Therapeutic Procedure, Each 15 M inutes Completed 08/05/2020 33336 Therapeutic Procedure, Each 15 M inutes Completed 08/03/2020 85595 Therapeutic Procedure, Each 15 M inutes Completed 08/03/2020 57403 Hot Or Cold Packs Completed 07/29/2020 07436 Physical Therapy Eval - Low Comp lexity Completed 06/24/2020 80475 MRI Upper Extremity Any Joint Co mpleted Medical Devices Description No Information Available Encounters Type Date Location Provider Dx Diagnosis Office Visit 08/30/2020 9:30a Brenda Waite MD S46. 011D Strain of musc/tend the rotator cuff of right shoulder, subs Office Visit 07/15/2020 9:00a Volinanne-marie Waite MD S46. 011A Strain of musc/tend the rotator cuff of right shoulder, init S80.01xD Contusion of right knee, sub sequent encounter Office Visit 06/11/2020 11:15a Brenda Waite MD S46. 011A Strain of musc/tend the rotator cuff of right shoulder, init S80.01xA Contusion of right knee, ini tial encounter Assessments Date Code Description Provider 09/16/2020 S46.011D Strain of muscle(s) and tendon(s) [...] cuff of right shoulder, subsequent encounter Sanjay Graham.TMarva 08/03/2020 S46.011D Strain of muscle(s) and tendon(s) of the rotator cuff of right shoulder, subsequent encounter Sanjay Graham.T. 07/29/2020 S46.011D Strain of muscle(s) and tendon(s) of the rotator cuff of right shoulder, subsequent encounter Sanjay Graham.T. 07/15/2020 S46.011A Strain of muscle(s) and tendon(s) [...] Waite MD Plan of Treatment Future Appointment(s):* 09/21/2020 9:00 am - Sanjay Hernandez P.T. at Physical Therapy * 10/04/2020 8:30 am - Wesley Waite MD at [place] Functional Status Description No Information Available Mental Status Description No Information Available Referrals Refer to Dr Reason for Referral Status Appt Date Wesley Waite MD PT- RT SHOULDER OK TO [facility] 2N D SET PASSED TO PT DEPT. Created [address] [place] [address] [phone] Wesley Waite MD PT- RT SHOULDER OK TO [facility] 1S T SET PASSED TO PT DEPT. LS Created [address] [place] [address] [phone] Wesley Waite MD MRI RT SHOULDER OK TO [facility] PER [facility]. P ASSED TO RIGOBERTOAY. LS Created [address] [facility] [address] [place] [address] [phone]
--- OUTSIDE RECORDS SUMMARY | 2020-11-24 06:05 | CCD | Continuity of Care Document ---
Author Author Eduardo HERNANDEZ P.T. Organization Unknown Address [address] [place] [address] [address] [place] [address] Phone [phone] Care Team Providers Care Emergency Communications Operator Name Role Phone Yvette CooperP AUTM [phone] Kishor Mays MD AUT Unavailable Problems Description [...] Information Available Procedures Date Code Description Status 09/28/2020 25027 Therapeutic Procedure, Each 15 M inutes Completed 09/28/2020 61735 Therapeutic Procedure, Each 15 M inutes Completed 09/28/2020 04560 Electrical Stimulati on Manual, Each 15 Min, Constant Attendance Completed 09/28/2020 96441 Hot Or Cold Packs Completed 09/21/2020 17273 Therapeutic Procedure, Each 15 M inutes Completed 09/21/2020 19357 Therapeutic Procedure, Each 15 M inutes Completed 09/21/2020 89813 Electrical Stimulati on Manual, Each 15 Min, Constant Attendance Completed 09/21/2020 53996 Hot Or Cold Packs Completed 09/16/2020 32874 Hot Or Cold Packs Completed 09/16/2020 39695 Electrical Stimulati on Manual, Each 15 Min, Constant Attendance Completed 09/16/2020 58659 Therapeutic Procedure, Each 15 M inutes Completed 09/16/2020 98511 Therapeutic Procedure, Each 15 M inutes Completed 09/14/2020 11469 Therapeutic Procedure, Each 15 M inutes Completed 09/14/2020 11596 Therapeutic Procedure, Each 15 M inutes Completed 09/14/2020 80198 Electrical Stimulati on Manual, Each 15 Min, Constant Attendance Completed 09/14/2020 74392 Hot Or Cold Packs Completed 09/09/2020 13833 Therapeutic Procedure, Each 15 M inutes Completed 09/09/2020 40790 Therapeutic Procedure, Each 15 M inutes Completed 09/09/2020 35828 Ultrasound, Each 15 Min, Constan t Attendance Completed 08/30/202097474 Inject/Drain Joint/Bursa Major C ompleted 08/20/2020 34633 Re-Eval Of PT Establ ished Plan Of Care 20Mins Face To Face PT/Fam Completed 08/20/2020 27492 Therapeutic Procedure, Each 15 M inutes Completed 08/20/2020 37992 Therapeutic Procedure, Each 15 M inutes Completed 08/20/2020 37232 Electrical Stimulati on Manual, Each 15 Min, Constant Attendance Completed 08/20/2020 00686 Hot Or Cold Packs Completed 08/18/2020 28025 Therapeutic Procedure, Each 15 M inutes Completed 08/18/2020 37141 Therapeutic Procedure, Each 15 M inutes Completed 08/18/2020 26966 Electrical Stimulati on Manual, Each 15 Min, Constant Attendance Completed 08/18/2020 98819 Hot Or Cold Packs Completed 08/12/2020 37808 Therapeutic Procedure, Each 15 M inutes Completed 08/12/2020 25908 Therapeutic Procedure, Each 15 M inutes Completed 08/10/2020 43128 Therapeutic Procedure, Each 15 M inutes Completed 08/10/2020 14947 Therapeutic Procedure, Each 15 M inutes Completed 08/05/2020 58783 Therapeutic Procedure, Each 15 M inutes Completed 08/05/2020 46507 Therapeutic Procedure, Each 15 M inutes Completed 08/03/2020 27273 Therapeutic Procedure, Each 15 M inutes Completed 08/03/2020 66742 Hot Or Cold Packs Completed 07/29/2020 59337 Physical Therapy Eval - Low Comp lexity Completed 06/24/2020 81528 MRI Upper Extremity Any Joint Co mpleted [...] tial encounter Assessments Date Code Description Provider 09/28/2020 S46.011D Strain of muscle(s) and tendon(s) [...] of right shoulder, subsequent encounter Sanjay Graham.T. 08/18/2020 S46.011D Strain of muscle(s) and tendon(s) of the rotator cuff of right shoulder, subsequent encounter Sanjay Graham.T. 08/12/2020 S46.011D Strain of muscle(s) and tendon(s) of the rotator cuff of right shoulder, subsequent encounter Mahad Angeles, PT, DPT 08/10/2020 S46.011D Strain of muscle(s) and tendon(s) of the rotator cuff of right shoulder, subsequent encounter Mahad Angeles, PT, DPT 08/05/2020 S46.011D Strain of muscle(s) and tendon(s) of the rotator cuff of right shoulder, subsequent encounter Sanjay Graham.T. 08/03/2020 S46.011D Strain of muscle(s) and tendon(s) [...] Waite MD Plan of Treatment Future Appointment(s):* 10/07/2020 1:30 pm - Sanjay Hernandez P.T. at Physical Therapy * 10/05/2020 11:00 am - Sanjay Hernandez P.T. at Physical Therapy * 10/04/2020 8:30 am - Wesley Waite MD at [place] Functional Status Description No Information Available Mental Status Description No Information Available Referrals Refer to Dr Reason for Referral Status Appt Date Wesley Waite MD PT- RT SHOULDER OK TO [facility] 2N D SET PASSED TO PT DEPT. [place] [facility] [place] [address] [phone] Wesley Waite MD PT- RT SHOULDER OK TO [facility] 1S T SET PASSED TO PT DEPT. [place] [facility] [place] [address] [phone] Wesley Waite MD MRI RT SHOULDER OK TO [facility] PER [facility]. P ASSED TO XRAY. [place] [facility] [place] [address] [phone]
--- OUTSIDE RECORDS SUMMARY | 2020-11-24 06:05 | CCD | Continuity of Care Document ---
Author Author Eduardo HERNANDEZ P.T. Organization Unknown Address [address] [place] [address] [address] [place] [address] Phone [phone] Care Team Providers Care Dress Marker Name Role Phone Yvette CooperP AUTM [phone] Kishor Mays MD AUT Unavailable Problems Description [...] Information Available Procedures Date Code Description Status 09/30/2020 24275 Re-Eval Of PT Establ ished Plan Of Care 20Mins Face To Face PT/Fam Completed 09/30/2020 47852 Therapeutic Procedure, Each 15 M inutes Completed 09/30/2020 69449 Electrical Stimulati on Manual, Each 15 Min, Constant Attendance Completed 09/30/2020 81307 Hot Or Cold Packs Completed 09/28/2020 45366 Therapeutic Procedure, Each 15 M inutes Completed 09/28/2020 27843 Therapeutic Procedure, Each 15 M inutes Completed 09/28/2020 27570 Electrical Stimulati on Manual, Each 15 Min, Constant Attendance Completed 09/28/2020 68273 Hot Or Cold Packs Completed 09/21/2020 27269 Hot Or Cold Packs Completed 09/21/2020 60609 Electrical Stimulati on Manual, Each 15 Min, Constant Attendance Completed 09/21/2020 86943 Therapeutic Procedure, Each 15 M inutes Completed 09/21/2020 61676 Therapeutic Procedure, Each 15 M inutes Completed 09/16/2020 01160 Therapeutic Procedure, Each 15 M inutes Completed 09/16/2020 03153 Therapeutic Procedure, Each 15 M inutes Completed 09/16/2020 67833 Electrical Stimulati on Manual, Each 15 Min, Constant Attendance Completed 09/16/2020 62553 Hot Or Cold Packs Completed 09/14/2020 03325 Therapeutic Procedure, Each 15 M inutes Completed 09/14/2020 53146 Therapeutic Procedure, Each 15 M inutes Completed 09/14/2020 83528 Electrical Stimulati on Manual, Each 15 Min, Constant Attendance Completed 09/14/2020 71850 Hot Or Cold Packs Completed 09/09/2020 72897 Ultrasound, Each 15 Min, Constan t Attendance Completed 09/09/2020 92410 Therapeutic Procedure, Each 15 M inutes Completed 09/09/2020 92923 Therapeutic Procedure, Each 15 M inutes Completed 08/30/2020 39983 Inject/Drain Joint/Bursa Major C ompleted 08/20/2020 52975 Re-Eval Of PT Establ ished Plan Of Care 20Mins Face To Face PT/Fam Completed 08/20/2020 90642 Therapeutic Procedure, Each 15 M inutes Completed 08/20/2020 93952 Therapeutic Procedure, Each 15 M inutes Completed 08/20/2020 66144 Electrical Stimulati on Manual, Each 15 Min, Constant Attendance Completed 08/20/2020 79420 Hot Or Cold Packs Completed 08/18/2020 98167 Hot Or Cold Packs Completed 08/18/2020 89626 Electrical Stimulati on Manual, Each 15 Min, Constant Attendance Completed 08/18/2020 72879 Therapeutic Procedure, Each 15 M inutes Completed 08/18/2020 67739 Therapeutic Procedure, Each 15 M inutes Completed 08/12/2020 78315 Therapeutic Procedure, Each 15 M inutes Completed 08/12/2020 20802 Therapeutic Procedure, Each 15 M inutes Completed 08/10/2020 69519 Therapeutic Procedure, Each 15 M inutes Completed 08/10/2020 43938 Therapeutic Procedure, Each 15 M inutes Completed 08/05/2020 82281 Therapeutic Procedure, Each 15 M inutes Completed 08/05/2020 04743 Therapeutic Procedure, Each 15 M inutes Completed 08/03/2020 18584 Therapeutic Procedure, Each 15 M inutes Completed 08/03/2020 38212 Hot Or Cold Packs Completed 07/29/2020 99148 Physical Therapy Eval - Low Comp lexity Completed 06/24/2020 47032 MRI Upper Extremity Any Joint Co mpleted [...] tial encounter Assessments Date Code Description Provider 10/04/2020 S46.011D Strain of muscle(s) and tendon(s) [...] cuff of right shoulder, subsequent encounter Mahad Angeles PT, DPT 08/10/2020 S46.011D Strain of muscle(s) and tendon(s) of the rotator cuff of right shoulder, subsequent encounter Mahad Angeles PT, DPT 08/05/2020 S46.011D Strain of muscle(s) and tendon(s) of the rotator cuff of right shoulder, subsequent encounter Sanjay Hernandez P.T. 08/03/2020 S46.011D Strain of muscle(s) and tendon(s) of the rotator cuff of right shoulder, subsequent encounter Sanjay Hernandez P.T. 07/29/2020 S46.011D Strain of muscle(s) and tendon(s) of the rotator cuff of right shoulder, subsequent encounter Sanjay J. Cook P.T. 07/15/2020 S46.011A Strain of muscle(s) and [...] 8:30 am - Tyler Luna MD at [place] * 10/07/2020 1:30 pm - Sanjay Hernandez P.T. at Physical Therapy Functional Status Description No Information Available Mental Status Description No Information Available Referrals Refer to Dr Reason for Referral Status Appt Date Wesley Waite MD PT- RT SHOULDER OK TO [facility] 2N D SET PASSED TO PT DEPT. Created [facility] [place] [address] [phone] Wesley Waite MD PT- RT SHOULDER OK TO [facility] 1S T SET PASSED TO PT DEPT. Created [facility] [place] [address] [phone] Wesley Waite MD MRI RT SHOULDER OK TO [facility] PER [facility]. P ASSED TO XRAY. Created [facility] [place] [address] [phone]
--- OUTSIDE RECORDS SUMMARY | 2020-11-24 06:05 | CCD | Continuity of Care Document ---
Author Author Eduardo HERNANDEZ P.T. Organization Unknown Address [address] [place] [address] [address] [place] [address] Phone [phone] Care Team Providers Care Surgical Supervisor Name Role Phone Yvette CooperP AUTM [phone] Kishor Mays MD AUT Unavailable Problems Description [...] Information Available Procedures Date Code Description Status 09/21/2020 26281 Therapeutic Procedure, Each 15 M inutes Completed 09/21/2020 56239 Therapeutic Procedure, Each 15 M inutes Completed 09/21/2020 31848 Electrical Stimulati on Manual, Each 15 Min, Constant Attendance Completed 09/21/2020 80159 Hot Or Cold Packs Completed 09/16/2020 42833 Therapeutic Procedure, Each 15 M inutes Completed 09/16/2020 73871 Therapeutic Procedure, Each 15 M inutes Completed 09/16/2020 85258 Electrical Stimulati on Manual, Each 15 Min, Constant Attendance Completed 09/16/2020 80517 Hot Or Cold Packs Completed 09/14/2020 53737 Hot Or Cold Packs Completed 09/14/2020 45193 Electrical Stimulati on Manual, Each 15 Min, Constant Attendance Completed 09/14/2020 89848 Therapeutic Procedure, Each 15 M inutes Completed 09/14/2020 69495 Therapeutic Procedure, Each 15 M inutes Completed 09/09/2020 29349 Therapeutic Procedure, Each 15 M inutes Completed 09/09/2020 43531 Therapeutic Procedure, Each 15 M inutes Completed 09/09/2020 11324 Ultrasound, Each 15 Min, Constan t Attendance Completed 08/30/2020 Inject/Drain Joint/Bursa Major C ompleted 08/20/202004876 Hot Or Cold Packs Completed 08/20/2020 33255 Electrical Stimulati on Manual, Each 15 Min, Constant Attendance Completed 08/20/2020 20845 Therapeutic Procedure, Each 15 M inutes Completed 08/20/2020 09441 Therapeutic Procedure, Each 15 M inutes Completed 08/20/2020 86919 Re-Eval Of PT Establ ished Plan Of Care 20Mins Face To Face PT/Fam Completed 08/18/2020 87286 Therapeutic Procedure, Each 15 M inutes Completed 08/18/2020 84206 Therapeutic Procedure, Each 15 M inutes Completed 08/18/2020 48193 Electrical Stimulati on Manual, Each 15 Min, Constant Attendance Completed 08/18/2020 22019 Hot Or Cold Packs Completed 08/12/2020 86596 Therapeutic Procedure, Each 15 M inutes Completed 08/12/2020 43914 Therapeutic Procedure, Each 15 M inutes Completed 08/10/2020 69842 Therapeutic Procedure, Each 15 M inutes Completed 08/10/2020 53782 Therapeutic Procedure, Each 15 M inutes Completed 08/05/2020 72615 Therapeutic Procedure, Each 15 M inutes Completed 08/05/2020 16813 Therapeutic Procedure, Each 15 M inutes Completed 08/03/2020 25749 Therapeutic Procedure, Each 15 M inutes Completed 08/03/2020 90127 Hot Or Cold Packs Completed 07/29/2020 89365 Physical Therapy Eval - Low Comp lexity Completed 06/24/2020 56216 MRI Upper Extremity Any Joint Co mpleted [...] tial encounter Assessments Date Code Description Provider 09/21/2020 S46.011D Strain of muscle(s) and tendon(s) [...] Sanjay Hernandez P.T. at Physical Therapy * 09/30/2020 8:30 am - Sanjay Hernandez P.T. at Physical Therapy * 10/04/2020 8:30 am - Wesley Waite MD at [place] Functional Status Description No Information Available Mental Status Description No Information Available Referrals Refer to Dr Reason for Referral Status Appt Date Wesley Waite MD PT- RT SHOULDER OK TO [facility] 2N D SET PASSED TO PT DEPT. Created [address] [place] [address] [phone] Wesley Waite MD PT- RT SHOULDER OK TO [facility] 1S T SET PASSED TO PT DEPT. Created [address] [place] [address] [phone] Wesley Waite MD MRI RT SHOULDER OK TO [facility] PER [facility]. P ASSED TO RIGOBERTOAY. Created [facility] [place] [address] [phone]
--- OUTSIDE RECORDS SUMMARY | 2020-11-24 06:05 | CCD | Continuity of Care Document ---
Author Author Eduardo HERNANDEZ P.T. Organization Unknown Address [address] [place] [address] [address] [place] [address] Phone [phone] Care Team Providers Care Serology Technician Name Role Phone Yvette CooperP AUTM [phone] Kishor Mays MD AUT Unavailable Problems Description [...] Information Available Procedures Date Code Description Status 09/14/2020 76887 Therapeutic Procedure, Each 15 M inutes Completed 09/14/2020 51674 Therapeutic Procedure, Each 15 M inutes Completed 09/14/2020 21443 Electrical Stimulati on Manual, Each 15 Min, Constant Attendance Completed 09/14/2020 95370 Hot Or Cold Packs Completed 09/09/2020 40543 Therapeutic Procedure, Each 15 M inutes Completed 09/09/2020 25232 Therapeutic Procedure, Each 15 M inutes Completed 09/09/2020 02224 Ultrasound, Each 15 Min, Constan t Attendance Completed 08/30/2020 34114 Inject/Drain Joint/Bursa Major C ompleted 08/20/2020 70633 Re-Eval Of PT Establ ished Plan Of Care 20Mins Face To Face PT/Fam Completed 08/20/2020 01559 Therapeutic Procedure, Each 15 M inutes Completed 08/20/2020 16175 Therapeutic Procedure, Each 15 M inutes Completed 08/20/2020 67247 Electrical Stimulati on Manual, Each 15 Min, Constant Attendance Completed 08/20/2020 99342 Hot Or Cold Packs Completed 08/18/2020 99594 Hot Or Cold Packs Completed 08/18/2020 60080 Electrical Stimulati on Manual, Each 15 Min, Constant Attendance Completed 08/18/2020 17359 Therapeutic Procedure, Each 15 M inutes Completed 08/18/2020 66708 Therapeutic Procedure, Each 15 M inutes Completed 08/12/2020 16403 Therapeutic Procedure, Each 15 M inutes Completed 08/12/2020 18770 Therapeutic Procedure, Each 15 M inutes Completed 08/10/2020 47458 Therapeutic Procedure, Each 15 M inutes Completed 08/10/2020 99627 Therapeutic Procedure, Each 15 M inutes Completed 08/05/2020 75383 Therapeutic Procedure, Each 15 M inutes Completed 08/05/2020 40916 Therapeutic Procedure, Each 15 M inutes Completed 08/03/2020 36696 Therapeutic Procedure, Each 15 M inutes Completed 08/03/2020 24253 Hot Or Cold Packs Completed 07/29/2020 65598 Physical Therapy Eval - Low Comp lexity Completed 06/24/2020 83617 MRI Upper Extremity Any Joint Co mpleted [...] sub sequent encounter Office Visit 06/11/2020 11:15a [place] Wesley Waite MD S46. 011A Strain of musc/tend the rotator cuff of right shoulder, init S80.01xA Contusion of right knee, ini tial encounter Assessments Date Code Description Provider 09/14/2020 S46.011D Strain of muscle(s) and tendon(s) [...] Sanjay Hernandez P.T. at Physical Therapy * 09/16/2020 9:00 am - Sanjay Hernandez P.T. at Physical Therapy * 10/04/2020 8:30 am - Wesley Waite MD at [place] 08/30/2020 - Wesley Waite MD* S46.011D Strain of muscle(s) and tendon(s) of the rotator cuff of right shoulder, subsequent encounter Functional Status Description No Information Available Mental Status Description No Information Available Referrals Refer to Dr Reason for Referral Status Appt Date Wesley Waite MD PT- RT SHOULDER OK TO [facility] 2N D SET PASSED TO PT DEPT. [place] [facility] [address] [phone] Wesley Waite MD PT- RT SHOULDER OK TO [facility] 1S T SET PASSED TO PT DEPT. Created [address] [place] [address] [phone] Wesley Waite MD MRI RT SHOULDER OK TO [facility] PER [facility]. P ASSED TO XRAY. Created [address] [place] [address] [phone]
--- OUTSIDE RECORDS SUMMARY | 2020-11-24 06:05 | CCD | Continuity of Care Document ---
Author Author Eduardo HERNANDEZ P.T. Organization Unknown Address [address] [place] [address] [address] [place] [address] Phone [phone] Care Team Providers Care Exercise Teacher Name Role Phone Yvette CooperP AUTM [phone] Kishor Mays MD AUT Unavailable Problems Description [...] Available Procedures Date Code Description Status 09/16/2020 37044 Therapeutic Procedure, Each 15 M inutes Completed 09/16/2020 39309 Therapeutic Procedure, Each 15 M inutes Completed 09/16/2020 50298 Electrical Stimulati on Manual, Each 15 Min, Constant Attendance Completed 09/16/2020 89336 Hot Or Cold Packs Completed 09/14/2020 38539 Therapeutic Procedure, Each 15 M inutes Completed 09/14/2020 36492 Therapeutic Procedure, Each 15 M inutes Completed 09/14/2020 78471 Electrical Stimulati on Manual, Each 15 Min, Constant Attendance Completed 09/14/2020 28136 Hot Or Cold Packs Completed 09/09/2020 73589 Therapeutic Procedure, Each 15 M inutes Completed 09/09/2020 09597 Therapeutic Procedure, Each 15 M inutes Completed 09/09/2020 47362 Ultrasound, Each 15 Min, Constan t Attendance Completed 08/30/202083836 Inject/Drain Joint/Bursa Major C ompleted 08/20/2020 92965 Hot Or Cold Packs Completed 08/20/2020 47126 Electrical Stimulati on Manual, Each 15 Min, Constant Attendance Completed 08/20/2020 34709 Therapeutic Procedure, Each 15 M inutes Completed 08/20/2020 99303 Therapeutic Procedure, Each 15 M inutes Completed 08/20/2020 31063 Re-Eval Of PT Establ ished Plan Of Care 20Mins Face To Face PT/Fam Completed 08/18/2020 00303 Therapeutic Procedure, Each 15 M inutes Completed 08/18/2020 35071 Therapeutic Procedure, Each 15 M inutes Completed 08/18/2020 60803 Electrical Stimulati on Manual, Each 15 Min, Constant Attendance Completed 08/18/2020 75147 Hot Or Cold Packs Completed 08/12/2020 36666 Therapeutic Procedure, Each 15 M inutes Completed 08/12/2020 78729 Therapeutic Procedure, Each 15 M inutes Completed 08/10/2020 45537 Therapeutic Procedure, Each 15 M inutes Completed 08/10/2020 22620 Therapeutic Procedure, Each 15 M inutes Completed 08/05/2020 55987 Therapeutic Procedure, Each 15 M inutes Completed 08/05/2020 70417 Therapeutic Procedure, Each 15 M inutes Completed 08/03/2020 51131 Therapeutic Procedure, Each 15 M inutes Completed 08/03/2020 82454 Hot Or Cold Packs Completed 07/29/2020 67889 Physical Therapy Eval - Low Comp lexity Completed 06/24/2020 70121 MRI Upper Extremity Any Joint Co mpleted Medical Devices Description No Information Available Encounters Type Date Location Provider Dx Diagnosis Office Visit 08/30/2020 9:30a Brenda Waite MD S46. 011D Strain of musc/tend the rotator cuff of right shoulder, subs Office Visit 07/15/2020 9:00a [place] Waite MD S46. 011A Strain of musc/tend [...] cuff of right shoulder, subsequent encounter Mahad Angelse, PT, DPT 08/05/2020 S46.011D Strain of muscle(s) [...] Waite MD Plan of Treatment Future Appointment(s):* 09/30/2020 8:30 am - Sanjay Hernandez P.T. at Physical Therapy * 09/28/2020 8:30 am - Sanjay Hernandez P.T. at Physical Therapy * 10/04/2020 8:30 am - Wesley Waite MD at [place] Functional Status Description No Information Available Mental Status Description No Information Available Referrals Refer to Dr Reason for Referral Status Appt Date Wesley Waite MD PT- RT SHOULDER OK TO [facility] 2N D SET PASSED TO PT DEPT. Created [address] [place] [address] [phone] Wesley Waite MD PT- RT SHOULDER OK TO [facility] 1S T SET PASSED TO PT DEPT. Created [address] [place], [place] [address] [phone] Wesley Waite MD MRI RT SHOULDER OK TO [facility] PER [facility]. P ASSED TO KRIS. LS Created [address] [facility] [address] [place] [address] [phone]
--- OUTSIDE RECORDS SUMMARY | 2020-11-24 06:05 | CCD | Continuity of Care Document ---
Author Author Eduardo HERNANDEZ P.T. Organization Unknown Address [address] [place] [address] [address] [place] [address] Phone [phone] Care Team Providers Care Arson And Bomb Investigator Name Role Phone Yvette CooperP AUTM [phone] Kishor Mays MD AUT Unavailable Problems Description [...] Available Procedures Date Code Description Status 09/14/2020 71779 Therapeutic Procedure, Each 15 M inutes Completed 09/14/2020 40389 Therapeutic Procedure, Each 15 M inutes Completed 09/14/2020 00018 Electrical Stimulati on Manual, Each 15 Min, Constant Attendance Completed 09/14/2020 65475 Hot Or Cold Packs Completed 09/09/2020 91136 Therapeutic Procedure, Each 15 M inutes Completed 09/09/2020 34769 Therapeutic Procedure, Each 15 M inutes Completed 09/09/2020 72183 Ultrasound, Each 15 Min, Constan t Attendance Completed 08/30/2020 39321 Inject/Drain Joint/Bursa Major C ompleted 08/20/2020 27728 Re-Eval Of PT Establ ished Plan Of Care 20Mins Face To Face PT/Fam Completed 08/20/2020 40405 Therapeutic Procedure, Each 15 M inutes Completed 08/20/2020 37821 Therapeutic Procedure, Each 15 M inutes Completed 08/20/2020 54519 Electrical Stimulati on Manual, Each 15 Min, Constant Attendance Completed 08/20/2020 76136 Hot Or Cold Packs Completed 08/18/2020 51749 Hot Or Cold Packs Completed 08/18/2020 16178 Electrical Stimulati on Manual, Each 15 Min, Constant Attendance Completed 08/18/2020 92039 Therapeutic Procedure, Each 15 M inutes Completed 08/18/2020 26354 Therapeutic Procedure, Each 15 M inutes Completed 08/12/2020 83294 Therapeutic Procedure, Each 15 M inutes Completed 08/12/2020 94823 Therapeutic Procedure, Each 15 M inutes Completed 08/10/2020 94178 Therapeutic Procedure, Each 15 M inutes Completed 08/10/2020 27513 Therapeutic Procedure, Each 15 M inutes Completed 08/05/2020 64232 Therapeutic Procedure, Each 15 M inutes Completed 08/05/2020 96719 Therapeutic Procedure, Each 15 M inutes Completed 08/03/2020 70534 Therapeutic Procedure, Each 15 M inutes Completed 08/03/2020 35243 Hot Or Cold Packs Completed 07/29/2020 01268 Physical Therapy Eval - Low Comp lexity Completed 06/24/2020 65973 MRI Upper Extremity Any Joint Co mpleted [...] sub sequent encounter Office Visit 06/11/2020 11:15a [place] Wesley Waite MD S46. 011A Strain of [...] 8:30 am - Wesley Waite MD at [place] Functional Status Description No Information Available Mental Status Description No Information Available Referrals Refer to Dr Reason for Referral Status Appt Date Wesley Waite MD PT- RT SHOULDER OK TO [facility] 2N D SET PASSED TO PT DEPT. Created [facility] [place] [address] [phone] Wesley Waite MD PT- RT SHOULDER OK TO [facility] 1S T SET PASSED TO PT DEPT. Created [address] [place] [address] [phone] Wesley Waite MD MRI RT SHOULDER OK TO [facility] PER [facility]. P ASSED TO XRAY. Created [facility] [place] [address] [phone]
--- OUTSIDE RECORDS SUMMARY | 2020-11-24 06:05 | CCD | Continuity of Care Document ---
Author Author Eduardo HERNANDEZ P.T. Organization Unknown Address [address] [place] [address] [address] [place] [address] Phone [phone] Care Team Providers Care Telecasting Engineer Name Role Phone Yvette CooperP AUTM [phone] Kishor Mays MD AUT Unavailable Problems Description [...] Hudson, RPA-C Fluticasone Propionate 50mcg/Act Suspension Radha Hudson RPA-C 0 Immunizations Description No Information Available Vital Signs Date Vital Result Comment 06/11/2020 11:47am Body Temperature 96.7 F Height 70 inches 5'10" Weight 245.00 lb BMI (Body Mass Index) 35.1 kg/m2 Results Description No Information Available Procedures Date Code Description Status 09/09/2020 54540 Therapeutic Procedure, Each 15 M inutes Completed 09/09/2020 14425 Ultrasound, Each 15 Min, Ivan carver Attendance Completed 08/30/2020 99362 Inject/Drain Joint/Bursa Major C ompleted 08/20/2020 16284 Re-Eval Of PT Establ ished Plan Of Care 20Mins Face To Face PT/Fam Completed 08/20/2020 45581 Therapeutic Procedure, Each 15 M inutes Completed 08/20/2020 93622 Therapeutic Procedure, Each 15 M inutes Completed 08/20/2020 56801 Electrical Stimulati on Manual, Each 15 Min, Constant Attendance Completed 08/20/2020 89643 Hot Or Cold Packs Completed 08/18/2020 93090 Hot Or Cold Packs Completed 08/18/2020 56688 Electrical Stimulati on Manual, Each 15 Min, Constant Attendance Completed 08/18/2020 60642 Therapeutic Procedure, Each 15 M inutes Completed 08/18/2020 52684 Therapeutic Procedure, Each 15 M inutes Completed 08/12/2020 62878 Therapeutic Procedure, Each 15 M inutes Completed 08/12/2020 46347 Therapeutic Procedure, Each 15 M inutes Completed 08/10/2020 71555 Therapeutic Procedure, Each 15 M inutes Completed 08/10/2020 81517 Therapeutic Procedure, Each 15 M inutes Completed 08/05/2020 55148 Therapeutic Procedure, Each 15 M inutes Completed 08/05/2020 73246 Therapeutic Procedure, Each 15 M inutes Completed 08/03/2020 22145 Therapeutic Procedure, Each 15 M inutes Completed 08/03/2020 66359 Hot Or Cold Packs Completed 07/29/2020 68621 Physical Therapy Eval - Low Comp lexity Completed 06/24/2020 80660 MRI Upper Extremity Any Joint Co mpleted [...] tial encounter Assessments Date Code Description Provider 09/09/2020 S46.011D Strain of muscle(s) and tendon(s) [...] 8:30 am - Wesley Waite MD at [place] Functional Status Description No Information Available Mental Status Description No Information Available Referrals Refer to Dr Reason for Referral Status Appt Date Wesley Waite MD PT- RT SHOULDER OK TO [facility] 2N D SET PASSED TO PT DEPT. Created [address] [place] [address] [phone] Wesley Waite MD PT- RT SHOULDER OK TO [facility] 1S T SET PASSED TO PT DEPT. Created [address] [place] [address] [phone] Wesley Waite MD MRI RT SHOULDER OK TO [facility] PER [facility]. P ASSED TO XRAY. Created [facility] [place] [address] [phone]
--- OUTSIDE RECORDS SUMMARY | 2020-11-24 06:05 | CCD | Continuity of Care Document ---
Author Author Eduardo HERNANDEZ P.T. Organization Unknown Address [address] [place] [address] [address] [place] [address] Phone [phone] Care Team Providers Care Biztalk Consultant Name Role Phone Yvette CooperP AUTM [phone] Kishor Mays MD AUT Unavailable Problems Description [...] Available Procedures Date Code Description Status 10/05/2020 34084 Therapeutic Procedure, Each 15 M inutes Completed 10/05/2020 85174 Therapeutic Procedure, Each 15 M inutes Completed 09/30/2020 98989 Re-Eval Of PT Establ ished Plan Of Care 20Mins Face To Face PT/Fam Completed 09/30/2020 68939 Therapeutic Procedure, Each 15 M inutes Completed 09/30/2020 20542 Electrical Stimulati on Manual, Each 15 Min, Constant Attendance Completed 09/30/2020 41300 Hot Or Cold Packs Completed 09/28/2020 10154 Therapeutic Procedure, Each 15 M inutes Completed 09/28/2020 84290 Therapeutic Procedure, Each 15 M inutes Completed 09/28/2020 38560 Electrical Stimulati on Manual, Each 15 Min, Constant Attendance Completed 09/28/2020 18085 Hot Or Cold Packs Completed 09/21/2020 71441 Hot Or Cold Packs Completed 09/21/2020 69759 Electrical Stimulati on Manual, Each 15 Min, Constant Attendance Completed 09/21/2020 26221 Therapeutic Procedure, Each 15 M inutes Completed 09/21/2020 89696 Therapeutic Procedure, Each 15 M inutes Completed 09/16/2020 56307 Therapeutic Procedure, Each 15 M inutes Completed 09/16/2020 43886 Therapeutic Procedure, Each 15 M inutes Completed 09/16/2020 08045 Electrical Stimulati on Manual, Each 15 Min, Constant Attendance Completed 09/16/2020 45264 Hot Or Cold Packs Completed 09/14/2020 19534 Therapeutic Procedure, Each 15 M inutes Completed 09/14/2020 30044 Therapeutic Procedure, Each 15 M inutes Completed 09/14/2020 03084 Electrical Stimulati on Manual, Each 15 Min, Constant Attendance Completed 09/14/2020 92453 Hot Or Cold Packs Completed 09/09/2020 67735 Ultrasound, Each 15 Min, Constan t Attendance Completed 09/09/2020 84089 Therapeutic Procedure, Each 15 M inutes Completed 09/09/2020 44881 Therapeutic Procedure, Each 15 M inutes Completed 08/30/2020 47476 Inject/Drain Joint/Bursa Major C ompleted 08/20/2020 89098 Re-Eval Of PT Establ ished Plan Of Care 20Mins Face To Face PT/Fam Completed 08/20/2020 36082 Therapeutic Procedure, Each 15 M inutes Completed 08/20/2020 04270 Therapeutic Procedure, Each 15 M inutes Completed 08/20/2020 58352 Electrical Stimulati on Manual, Each 15 Min, Constant Attendance Completed 08/20/2020 69607 Hot Or Cold Packs Completed 08/18/2020 44008 Hot Or Cold Packs Completed 08/18/2020 55651 Electrical Stimulati on Manual, Each 15 Min, Constant Attendance Completed 08/18/2020 73309 Therapeutic Procedure, Each 15 M inutes Completed 08/18/2020 02052 Therapeutic Procedure, Each 15 M inutes Completed 08/12/2020 43205 Therapeutic Procedure, Each 15 M inutes Completed 08/12/2020 13799 Therapeutic Procedure, Each 15 M inutes Completed 08/10/2020 22675 Therapeutic Procedure, Each 15 M inutes Completed 08/10/2020 34038 Therapeutic Procedure, Each 15 M inutes Completed 08/05/2020 20242 Therapeutic Procedure, Each 15 M inutes Completed 08/05/202071866 Therapeutic Procedure, Each 15 M inutes Completed 08/03/202016699 Therapeutic Procedure, Each 15 M inutes Completed 08/03/2020 33994 Hot Or Cold Packs Completed 07/29/2020 29480 Physical Therapy Eval - Low Comp lexity Completed 06/24/2020 88339 MRI Upper Extremity Any Joint Co mpleted [...] 8:30 am - Tyler Luna MD at [facility] 10/04/2020 - Wesley Waite MD* S46.011D Strain [...] SET PASSED TO PT DEPT. Created [address] [place] [address] [address] [place] [address] [phone] Wesley Waite MD PT- RT SHOULDER OK TO [facility] 1S T SET PASSED TO PT DEPT. Created [address] [place] [address] [phone] Wesley Waite MD MRI RT SHOULDER OK TO [facility] PER [facility]. P ASSED TO XRAY. Created [address] [place] [address] [phone]
--- OUTSIDE RECORDS SUMMARY | 2020-11-24 06:05 | CCD | Continuity of Care Document ---
Author Author Eduardo WAITE MD Organization Unknown Address [address] [place] [address] Phone [phone] Care Team Providers Care Automatic Operator Name Role Phone Yvette CooperP AUTM [phone] Kishor Mays MD AUT Unavailable Problems Description [...] Available Procedures Date Code Description Status 09/30/2020 80309 Re-Eval Of PT Establ ished Plan Of Care 20Mins Face To Face PT/Fam Completed 09/30/2020 59969 Therapeutic Procedure, Each 15 M inutes Completed 09/30/2020 90689 Electrical Stimulati on Manual, Each 15 Min, Constant Attendance Completed 09/30/2020 05446 Hot Or Cold Packs Completed 09/28/2020 96204 Therapeutic Procedure, Each 15 M inutes Completed 09/28/2020 00991 Therapeutic Procedure, Each 15 M inutes Completed 09/28/2020 75116 Electrical Stimulati on Manual, Each 15 Min, Constant Attendance Completed 09/28/2020 38243 Hot Or Cold Packs Completed 09/21/2020 91395 Hot Or Cold Packs Completed 09/21/2020 25989 Electrical Stimulati on Manual, Each 15 Min, Constant Attendance Completed 09/21/2020 27910 Therapeutic Procedure, Each 15 M inutes Completed 09/21/2020 49563 Therapeutic Procedure, Each 15 M inutes Completed 09/16/2020 42039 Therapeutic Procedure, Each 15 M inutes Completed 09/16/2020 50866 Therapeutic Procedure, Each 15 M inutes Completed 09/16/2020 80617 Electrical Stimulati on Manual, Each 15 Min, Constant Attendance Completed 09/16/2020 09808 Hot Or Cold Packs Completed 09/14/2020 43175 Therapeutic Procedure, Each 15 M inutes Completed 09/14/2020 20525 Therapeutic Procedure, Each 15 M inutes Completed 09/14/2020 21328 Electrical Stimulati on Manual, Each 15 Min, Constant Attendance Completed 09/14/2020 65026 Hot Or Cold Packs Completed 09/09/2020 89259 Ultrasound, Each 15 Min, Constan t Attendance Completed 09/09/2020 90795 Therapeutic Procedure, Each 15 M inutes Completed 09/09/2020 25807 Therapeutic Procedure, Each 15 M inutes Completed 08/30/2020 49187 Inject/Drain Joint/Bursa Major C ompleted 08/20/2020 02250 Re-Eval Of PT Establ ished Plan Of Care 20Mins Face To Face PT/Fam Completed 08/20/2020 78523 Therapeutic Procedure, Each 15 M inutes Completed 08/20/2020 88005 Therapeutic Procedure, Each 15 M inutes Completed 08/20/2020 18298 Electrical Stimulati on Manual, Each 15 Min, Constant Attendance Completed 08/20/2020 74460 Hot Or Cold Packs Completed 08/18/2020 94165 Hot Or Cold Packs Completed 08/18/2020 83090 Electrical Stimulati on Manual, Each 15 Min, Constant Attendance Completed 08/18/2020 66138 Therapeutic Procedure, Each 15 M inutes Completed 08/18/2020 06633 Therapeutic Procedure, Each 15 M inutes Completed 08/12/2020 56007 Therapeutic Procedure, Each 15 M inutes Completed 08/12/2020 25486 Therapeutic Procedure, Each 15 M inutes Completed 08/10/2020 44067 Therapeutic Procedure, Each 15 M inutes Completed 08/10/2020 32849 Therapeutic Procedure, Each 15 M inutes Completed 08/05/2020 20954 Therapeutic Procedure, Each 15 M inutes Completed 08/05/2020 91331 Therapeutic Procedure, Each 15 M inutes Completed 08/03/2020 76154 Therapeutic Procedure, Each 15 M inutes Completed 08/03/2020 26692 Hot Or Cold Packs Completed 07/29/2020 48291 Physical Therapy Eval - Low Comp lexity Completed 06/24/2020 06608 MRI Upper Extremity Any Joint Co mpleted [...] of right shoulder, subsequent encounter Sanjay Hernandez P.TMarva 09/28/2020 S46.011D Strain of muscle(s) and tendon(s) of the rotator cuff of right shoulder, subsequent encounter Sanjay Hernandez P.TMarva 09/21/2020 S46.011D Strain of muscle(s) and tendon(s) [...] 8:30 am - Tyler Luna MD at [place] * 10/07/2020 1:30 pm - Sanjay Hernandez P.T. at [facility] * 10/05/2020 11:00 am - Sanjay Hernandez P.T. at [facility] 10/04/2020 - Wesley Waite MD* S46.011D Strain [...] Waite MD PT- RT SHOULDER OK TO [facility] 2N D SET PASSED TO PT DEPT. Created [facility] [place] [address] [phone] Wesley Waite MD PT- RT SHOULDER OK TO [facility] 1S T SET PASSED TO PT DEPT. Created [address] [place] [address] [phone] Wesley Waite MD MRI RT SHOULDER OK TO [facility] PER [facility]. P ASSED TO XRAY. Created [facility] [place] [address] [phone]
--- OUTSIDE RECORDS SUMMARY | 2020-11-24 06:05 | CCD | Continuity of Care Document ---
Author Author Eduardo HERNANDEZ P.T. Organization Unknown Address [address] [place] [address] [address] [place] [address] Phone [phone] Care Team Providers Care Wholesale Diamond Broker Name Role Phone Yvette CooperP AUTM [phone] Kishor Mays MD AUT Unavailable Problems Description [...] Available Procedures Date Code Description Status 09/14/2020 22815 Therapeutic Procedure, Each 15 M inutes Completed 09/14/2020 96501 Therapeutic Procedure, Each 15 M inutes Completed 09/14/2020 17733 Electrical Stimulati on Manual, Each 15 Min, Constant Attendance Completed 09/14/2020 03331 Hot Or Cold Packs Completed 09/09/2020 41006 Therapeutic Procedure, Each 15 M inutes Completed 09/09/2020 23257 Therapeutic Procedure, Each 15 M inutes Completed 09/09/2020 41262 Ultrasound, Each 15 Min, Constan t Attendance Completed 08/30/2020 15345 Inject/Drain Joint/Bursa Major C ompleted 08/20/2020 39685 Re-Eval Of PT Establ ished Plan Of Care 20Mins Face To Face PT/Fam Completed 08/20/2020 60071 Therapeutic Procedure, Each 15 M inutes Completed 08/20/2020 11665 Therapeutic Procedure, Each 15 M inutes Completed 08/20/2020 25148 Electrical Stimulati on Manual, Each 15 Min, Constant Attendance Completed 08/20/2020 26970 Hot Or Cold Packs Completed 08/18/2020 17179 Hot Or Cold Packs Completed 08/18/2020 64590 Electrical Stimulati on Manual, Each 15 Min, Constant Attendance Completed 08/18/2020 62098 Therapeutic Procedure, Each 15 M inutes Completed 08/18/2020 01493 Therapeutic Procedure, Each 15 M inutes Completed 08/12/2020 25997 Therapeutic Procedure, Each 15 M inutes Completed 08/12/2020 99738 Therapeutic Procedure, Each 15 M inutes Completed 08/10/2020 72616 Therapeutic Procedure, Each 15 M inutes Completed 08/10/2020 58431 Therapeutic Procedure, Each 15 M inutes Completed 08/05/2020 74315 Therapeutic Procedure, Each 15 M inutes Completed 08/05/2020 45832 Therapeutic Procedure, Each 15 M inutes Completed 08/03/2020 31710 Therapeutic Procedure, Each 15 M inutes Completed 08/03/2020 01255 Hot Or Cold Packs Completed 07/29/2020 53881 Physical Therapy Eval - Low Comp lexity Completed 06/24/2020 96956 MRI Upper Extremity Any Joint Co mpleted [...] sub sequent encounter Office Visit 06/11/2020 11:15a [place] Wesley Waite MD S46. 011A Strain of [...] 8:30 am - Wesley Waite MD at [place] 08/30/2020 - Wesley Waite MD* S46.011D Strain of muscle(s) and tendon(s) of the rotator cuff of right shoulder, subsequent encounter Functional Status Description No Information Available Mental Status Description No Information Available Referrals Refer to Dr Reason for Referral Status Appt Date Wesley Waite MD PT- RT SHOULDER OK TO [facility] 2N D SET PASSED TO PT DEPT. Created [facility] [place] [address] [phone] Wesley Waite MD PT- RT SHOULDER OK TO [facility] 1S T SET PASSED TO PT DEPT. Created [address] [place] [address] [phone] Wesley Waite MD MRI RT SHOULDER OK TO [facility] PER [facility]. P ASSED TO XRAY. Created [address] [place] [address] [phone]
--- OUTSIDE RECORDS SUMMARY | 2020-11-24 06:05 | CCD | Continuity of Care Document ---
Author Author Eduardo HERNANDEZ P.T. Organization Unknown Address [address] [place] [address] [address] [place] [address] Phone [phone] Care Team Providers Care Terrazzo Layer Helper Name Role Phone Yvette Cooper SOLVENT PLANT OPERATOR AUTM [phone] Kishor Mays MD AUT Unavailable Problems Description [...] Radha Hudson, RPA-C Celecoxib 100mg Capsules Radha Hudson RPA-C Fluticasone Propionate 50mcg/Act Suspension Radha Hudson RPA-C 0 Immunizations Description No Information Available Vital Signs Date Vital Result Comment 06/11/2020 11:47am Body Temperature 96.7 F Height 70 inches 5'10" Weight 245.00 lb BMI (Body Mass Index) 35.1 kg/m2 Results Description No Information Available Procedures Date Code Description Status 08/30/2020 79531 Inject/Drain Joint/Bursa Major C ompleted 08/20/2020 32301 Re-Eval Of PT Establ ished Plan Of Care 20Mins Face To Face PT/Fam Completed 08/20/2020 57191 Therapeutic Procedure, Each 15 M inutes Completed 08/20/2020 15845 Therapeutic Procedure, Each 15 M inutes Completed 08/20/2020 26653 Electrical Stimulati on Manual, Each 15 Min, Constant Attendance Completed 08/20/2020 67271 Hot Or Cold Packs Completed 08/18/2020 96341 Therapeutic Procedure, Each 15 M inutes Completed 08/18/2020 07007 Therapeutic Procedure, Each 15 M inutes Completed 08/18/2020 67205 Electrical Stimulati on Manual, Each 15 Min, Constant Attendance Completed 08/18/2020 73570 Hot Or Cold Packs Completed 08/12/2020 75434 Therapeutic Procedure, Each 15 M inutes Completed 08/12/2020 03479 Therapeutic Procedure, Each 15 M inutes Completed 08/10/2020 98347 Therapeutic Procedure, Each 15 M inutes Completed 08/10/2020 45386 Therapeutic Procedure, Each 15 M inutes Completed 08/05/2020 86239 Therapeutic Procedure, Each 15 M inutes Completed 08/05/2020 61030 Therapeutic Procedure, Each 15 M inutes Completed 08/03/2020 51662 Therapeutic Procedure, Each 15 M inutes Completed 08/03/2020 41037 Hot Or Cold Packs Completed 07/29/2020 48261 Physical Therapy Eval - Low Comp lexity Completed 06/24/2020 98771 MRI Upper Extremity Any Joint Co mpleted [...] tial encounter Assessments Date Code Description Provider 08/30/2020 S46.011D Strain of muscle(s) and tendon(s) [...] Waite MD Plan of Treatment Future Appointment(s):* 09/16/2020 9:00 am - Sanjay Hernandez P.T. at [facility] Therapy * 09/14/2020 9:00 am - Sanjay Hernandez P.T. at [facility] Therapy * 10/04/2020 8:30 am - Wesley Waite MD at [place] Functional Status Description No Information Available Mental Status Description No Information Available Referrals Refer to Dr Reason for Referral Status Appt Date Wesley Waite MD PT- RT SHOULDER OK TO [facility] 2N D SET PASSED TO PT DEPT. Created [address] [place] [address] [phone] Wesley Waite MD PT- RT SHOULDER OK TO [facility] 1S T SET PASSED TO PT DEPT. Created [address] [place] [address] [phone] Wesley Waite MD MRI RT SHOULDER OK TO [facility] PER [facility]. P ASSED TO XRAY. Created [address] [place] [address] [phone]
--- OUTSIDE RECORDS SUMMARY | 2020-11-24 06:06 | CCD ---
Author Author [facility] Organization [facility] Address Unknown Phone Unavailable Care Team Providers Care Cotton Expert Name Role Phone David MARIN TRUST ACCOUNTS SUPERVISOR Unavailable Unavailable ZEGIL D YOSI TRUST ACCOUNTS SUPERVISOR Unavailable Unavailable ZEREINAL, D YOSI TRUST ACCOUNTS SUPERVISOR Unavailable Unavailable YUDITH DUNNE MD Unavailable Unavailable YUDITH DUNNE MD Unavailable Unavailable YUDITH DUNNE MD Unavailable Unavailable YUDITH DUNNE MD Unavailable Unavailable YUDITH DUNNE MD Unavailable Unavailable YUDITH DUNNE MD Unavailable Unavailable YUDITH DUNNE MD Unavailable Unavailable YUDITH DUNNE MD Unavailable Unavailable YUDITH DUNNE MD Unavailable Unavailable YUDITH DUNNE MD Unavailable Unavailable YUDITH DUNNE MD Unavailable Unavailable YUDITH DUNNE MD Unavailable Unavailable YUDITH DUNNE MD Unavailable Unavailable YUDITH DUNNE MD Unavailable Unavailable YUDITH DUNNE MD Unavailable Unavailable YUDITH DUNNE MD Unavailable Unavailable YUDITH DUNNE MD Unavailable Unavailable YUDITH DUNNE MD Unavailable Unavailable YUDITH DUNNE MD Unavailable Unavailable YUDITH DUNNE MD Unavailable Unavailable YUDITH DUNNE MD Unavailable Unavailable YUDITH DUNNE MD Unavailable Unavailable YUDITH DUNNE MD Unavailable Unavailable YUDITH DUNNE MD Unavailable Unavailable YUDITH DUNNE MD Unavailable Unavailable YUDITH DUNNE MD Unavailable Unavailable YUDITH DUNNE MD Unavailable Unavailable YUDITH DUNNE MD Unavailable Unavailable YUDITH DUNNE MD Unavailable Unavailable YUDITH DUNNE MD Unavailable Unavailable YUDITH DUNNE MD Unavailable Unavailable MARKWITHYUDITH MD Unavailable Unavailable YUDITH DUNNE MD Unavailable Unavailable DiBella, Gladys Greer MD Unavailable Unavailable DiBella, P Percy KAMARA Unavailable Unavailable DiBella, P Percy KAMARA Unavailable Unavailable DiBella, P Percy KAMARA Unavailable Unavailable DiBella, P Percy KAMARA Unavailable Unavailable DiBella, P Percy KAMARA Unavailable Unavailable Re-disclosure Warning The records that you are about to access may contain information from federally-assisted alcohol or drug abuse programs. If such information is present, then the following federally mandated warning applies: This information has been disclosed to you from records protected by federal confidentiality rules (42 CFR part 2). The federal rules prohibit you from making any further disclosure of this information unless further disclosure is expressly permitted by the written consent of the person to whom it pertains or as otherwise permitted by 42 CFR part 2. A general authorization for the release of medical or other information is NOT sufficient for this purpose. The Federal rules restrict any use of the information to criminally investigate or prosecute any alcohol or drug abuse patient.The records that you are about to access may contain highly sensitive health information, the redisclosure of which is protected by Article 27-F of the [facility] Public Health law. If you continue you may have access to information: Regarding HIV / AIDS; Provided by facilities licensed or operated by the [facility] Office of Mental Health; or Provided by the [facility] Office for People With Developmental Disabilities. If such information is present, then the following [facility] mandated warning applies: This information has been disclosed to you from confidential records which are protected by state law. State law prohibits you from making any further disclosure of this information without the specific written consent of the person to whom it pertains, or as otherwise permitted by law. Any unauthorized further disclosure in violation of state law may result in a fine or halfway sentence or both. A general authorization for the release of medical or other information is NOT sufficient authorization for further disc losure. Allergies and Adverse Reactions Type Description Substance Reaction Status Data Source(s ) Drug allergy No Known Drug Allergies No Known Drug Allergies [facility] Miscellaneous allergy No Known Drug Allergies No Known Drug Allergies [facility] Miscellaneous allergy No Known Allergies No Known Allergies [facility] Encounters Encounter Providers Location Date Indications Data Source(s ) OFFICE OUTPATIENT VISIT 15 MINUTES Attender: YUDITH DUNNE MD Physical Therapy 10/04/2020 07:30:00 AM EST MEDENT ([facility]) OFFICE OUTPATIENT VISIT 15 MINUTES Attender: YUDITH DUNNE MD Physical Therapy 08/30/2020 08:30:00 AM EST MED[facility] ([facility]) [place] [address] [address] 07/22/2020 12:00:00 AM EDT eCW1 ([facility]) [place] [address] [place] [address] 07/22/2020 12:00:00 AM EDT eCW1 ([facility]) OFFICE OUTPATIENT VISIT 15 MINUTES Attender: YUDITH DUNNE MD Physical Therapy 07/15/2020 09:00:00 AM EDT MEDENT ([facility]) Office Visit Attender: YUDITH DUNNE MD Physical Therapy 11:15:00 AM EDT [facility] ([facility]) [place] [address] [place] [address] 04/06/2020 12:00:00 AM EDT eCW1 ([facility]) [place] [address] [address] 03/29/2020 12:00:00 AM EDT eCW1 ([facility]) Outpatient 03/16/2020 05:32:00 AM EDT [facility] Outpatient 03/15/2020 12:21:00 PM EDT [facility] [place] [address] [address] 03/12/2020 12:00:00 AM EDT eCW1 ([facility]) [place] [address] [address] 03/01/2020 12:00:00 AM EDT eCW1 ([facility]) [facility] [place] [address] [address] 02/17/2020 12:00:00 AM EDT eCW1 ([facility]) [facility] [place] [address] [address] 02/16/2020 12:00:00 AM EDT eCW1 ([facility]) [facility] [address] [address] 02/12/2020 12:00:00 AM EDT eCW1 ([facility]) [facility] [address] [address] 02/12/2020 12:00:00 AM EDT eCW1 ([facility]) [facility] [address] [place] [address] 02/11/2020 12:00:00 AM EDT eCW1 ([facility]) [facility] [address] [address] 02/10/2020 12:00:00 AM EDT eCW1 ([facility]) Emergency Attender: Percy Magana MD 08/2020 09:16:00 AM EDT - 02/09/2020 12:15:00 PM EDT FEVER,DIZZINESS,R/O COVID [facility] FEVER,DIZZINESS,R/O COVID Patient discharged. Emergency Attender: YOSI FONTENOT dmitter: YOSI MARIN FNPReferrer: YOSI MARIN FNPConsultant: YOSI MONTEMAYOR [phone] 04:09:00 AM EDT - 01/03/2020 04:35:00 PM EDT Shortness of breath [facility] Shortness of breath Patient discharged. Medications Medication Brand Name Start Date Product Form Dose Route Admi nistrative Instructions Pharmacy Instructions Status Indications Reaction Description Data Source(s) doxycycline hyclate 100 MG Oral Capsule Doxycycline Hy clate 100 MG Doxycycline Hyclate 100 MG 07/22/2020 12:00:00 AM EDT 1.0 {capsule} active Doxycycline Hyclate 100 MG eCW1 ([facility]) doxycycline hyclate 100 MG Oral Capsule Doxycycline Hy clate 100 MG Doxycycline Hyclate 100 MG 07/22/2020 12:00:00 AM EDT 1.0 {capsule} active Doxycycline Hyclate 100 MG eCW1 ([facility]) benzonatate 200 MG Oral Capsule Benzonatate 200 MG Benzonata te 200 MG 07/22/2020 12:00:00 AM EDT 1.0 {capsule} active B enzonatate 200 MG eCW1 ([facility]) benzonatate 200 MG Oral Capsule Benzonatate 200 MG Benzonata te 200 MG 07/22/2020 12:00:00 AM EDT 1.0 {capsule} active B enzonatate 200 MG eCW1 ([facility]) tramadol hydrochloride 50 MG Oral Tablet Tramadol HCL 07/15/2020 12:00:00 AM EDT active [facility] ([facility]) 50 mg 07/15/2020 12:00:00 AM EDT tablet 14 TAKE ONE TABLET BY MOUTH BEFORE BED MAXIMUM DAILY DOSE = ONE TABLET TAKE ONE TABLET BY MOUTH BEFORE BED MAXI MUM DAILY DOSE = ONE TABLET SOLD: 07/22/2020 [facility] 5-325 mg 06/10/2020 12:00:00 AM EDT tablet 15 TAKE 1 TABLET BY MOUTH THREE TIMES A DAY NEEDED FOR PAIN MAXIMUM DAILY DOSE = 3 TAKE 1 TABLET BY MOUTH THREE TIMES A DAY NEEDED FOR PAIN MAXIMUM DAILY DOSE = 3 SOLD: 06/10/2020 [facility] celecoxib 100 MG Oral Capsule [Celebrex] Celebrex 100 MG Beth ebrex 100 MG 03/01/2020 12:00:00 AM EDT 1.0 {capsule_with_food} active Celebrex 100 MG eCW1 ([facility]) celecoxib 100 MG Oral Capsule [Celebrex] Celebrex 100 MG Beth ebrex 100 MG 03/01/2020 12:00:00 AM EDT 1.0 {capsule_with_food} active Celebrex 100 MG eCW1 ([facility]) gabapentin 100 MG Oral Capsule Gabapentin 100 MG Gabapentin 100 MG 03/01/2020 12:00:00 AM EDT 1.0 {capsule} active G abapentin 100 MG eCW1 ([facility]) gabapentin 100 MG Oral Capsule Gabapentin 100 MG Gabapentin 100 MG 03/01/2020 12:00:00 AM EDT 1.0 {capsule} active G abapentin 100 MG eCW1 ([facility]) Fluticasone Propionate 50 MCG/ACT Fluticasone Propionate 50 MCG/ACT 02/12/2020 12:00:00 AM EDT 1.0 {spray_in_each_nostril} acti ve Fluticasone Propionate 50 MCG/ACT eCW1 ([facility]) Fluticasone Propionate 50 MCG/ACT Fluticasone Propionate 50 MCG/ACT 02/12/2020 12:00:00 AM EDT 1.0 {spray_in_each_nostril} acti ve Fluticasone Propionate 50 MCG/ACT eCW1 ([facility]) Fluticasone Propionate 50 MCG/ACT Fluticasone Propionate 50 MCG/ACT 02/12/2020 12:00:00 AM EDT 1.0 {spray_in_each_nostril} susp ended Fluticasone Propionate 50 MCG/ACT eCW1 ([facility]) Fluticasone Propionate 50 MCG/ACT Fluticasone Propionate 50 MCG/ACT 02/12/2020 12:00:00 AM EDT 1.0 {spray_in_each_nostril} acti ve Fluticasone Propionate 50 MCG/ACT eCW1 ([facility]) Fluticasone Propionate 50 MCG/ACT Fluticasone Propionate 50 MCG/ACT 02/12/2020 12:00:00 AM EDT 1.0 {spray_in_each_nostril} acti ve Fluticasone Propionate 50 MCG/ACT eCW1 ([facility]) Fluticasone Propionate 50 MCG/ACT Fluticasone Propionate 50 MCG/ACT 02/12/2020 12:00:00 AM EDT active 1 spray in each nostril eCW1 ([facility]) Fluticasone Propionate 50 MCG/ACT Fluticasone Propionate 50 MCG/ACT 02/12/2020 12:00:00 AM EDT 1.0 {spray_in_each_nostril} susp ended Fluticasone Propionate 50 MCG/ACT eCW1 ([facility]) Insurance Providers Payer name Policy type / Coverage type Policy ID Covered constitution party ID Covered constitution party's relationship to edmond Policy [place] Plan Information STATE INSURANCE FUND [id number] SP [id number] [facility] [id number] SP [id number] [facility] [id number] SP [id number] [facility] [id number] SP [id number] [facility] INSURANCE FUND [id number] SP [id number] [facility] O [id number] S [id number] [employer] EMPIRE FUNMI DIV [id number] SP [id number] [facility] EMPIRE PLAN-OP [id number] undefin ed [id number] EMPIRE BLUE CROSS BLUE SHIELD-OP [id number] unde fined [id number] [facility] EMPIRE- PHY [id number] undefined [id number] EMPIRE BLUE CROSS BLUE SHIELD-OP [id number] undefin ed [id number] [facility] [id number] SP [id number] SELF PAY ONLY - SP1 [id number] SP [id number] ANSI-Not a Secondary Insurance [id number] [id number] Self [id number] "" Workers Compensation Problems, Conditions, and Diagnoses Code Display Name Description Problem Type Effective Dates Data Source(s) Z13.220 [id number] Lipid screening Problem 03/29/2020 12:00:00 AM EDT eCW1 ([facility]) Z13.1 054624772 Diabetes mellitus screening Problem 03/29/20 20 12:00:00 AM EDT eCW1 ([facility]) Z12.5 592675759 Prostate cancer screening Problem 03/29/2020 12:00:00 AM EDT eCW1 ([facility]) Z12.11 [id number] Colon cancer screening Problem 03/29/2020 12 :00:00 AM EDT eCW1 ([facility]) M51.36 51130320 DDD (degenerative disc disease), lumbar P roblem 03/01/2020 12:00:00 AM EDT eCW1 ([facility]) J30.1 52358924 Seasonal allergic rhinitis due to pollen Problem 02/12/2020 12:00:00 AM EDT eCW1 ([facility]) R53.82 14261041 Chronic fatigue Problem 02/12/2020 12:00:00 AM EDT eCW1 ([facility]) J30.1 17934106 Seasonal allergic rhinitis due to pollen Problem 02/12/2020 12:00:00 AM EDT eCW1 ([facility]) R53.82 11833534 Chronic fatigue Problem 02/12/2020 12:00:00 AM EDT eCW1 ([facility]) R0602 Shortness of breath Shortness of breath Diagnosis 0 01/03/2020 04:09:00 AM EDT [facility] R079 Chest pain, unspecified Chest pain, unspecified Diagno sis 01/03/2020 04:09:00 AM EDT [facility] E669 Obesity, unspecified Obesity, unspecified Diagnosis 01/03/2020 04:09:00 AM EDT [facility] B349 Viral infection, unspecified Viral infection, unspecif ied Diagnosis 01/03/2020 04:09:00 AM EDT [facility] Surgeries/Procedures Procedure Description Date Indications Data Source(s) APPLICATION MODALITY 1/> AREAS HOT/COLD PACKS 11/03/19 21 12:00:00 AM EST MEDENT ([facility]) APPL MODALITY 1/> AREAS ELEC STIMJ EA 15 MIN 1 12:00:00 AM EST [facility] ([facility]) THERAPEUTIC PX 1/> AREAS EACH 15 MIN EXERCISES 021 12:00:00 AM EST [facility] ([facility] ) THERAPEUTIC PX 1/> AREAS EACH 15 MIN EXERCISES 021 12:00:00 AM EST [facility] ([facility] ) THERAPEUTIC PX 1/> AREAS EACH 15 MIN EXERCISES 021 12:00:00 AM EST [facility] ([facility] ) APPLICATION MODALITY 1/> AREAS HOT/COLD PACKS 10/26/19 21 12:00:00 AM EST [facility] ([facility] ) APPL MODALITY 1/> AREAS ELEC STIMJ EA 15 MIN 1 12:00:00 AM EST [facility] ([facility] ) THERAPEUTIC PX 1/> AREAS EACH 15 MIN EXERCISES 021 12:00:00 AM EST [facility] ([facility] ) THERAPEUTIC PX 1/> AREAS EACH 15 MIN EXERCISES 021 12:00:00 AM EST [facility] ([facility]) THERAPEUTIC PX 1/> AREAS EACH 15 MIN EXERCISES 12:00:00 AM EST [facility] ([facility]) THERAPEUTIC PX 1/> AREAS EACH 15 MIN EXERCISES 12:00:00 AM EST [facility] ([facility]) Re-Eval Of PT Established Plan Of Care 20Mins Face To Face P T/Fam 09/30/2020 12:00:00 AM EST [facility] ([facility]) THERAPEUTIC PX 1/> AREAS EACH 15 MIN EXERCISES 12:00:00 AM EST [facility] ([facility]) APPL MODALITY 1/> AREAS ELEC STIMJ EA 15 MIN 0 12:00:00 AM EST [facility] ([facility]) APPLICATION MODALITY 1/> AREAS HOT/COLD PACKS 09/30/20 20 12:00:00 AM EST [facility] ([facility]) APPLICATION MODALITY 1/> AREAS HOT/COLD PACKS 09/28/20 20 12:00:00 AM EST [facility] ([facility]) APPL MODALITY 1/> AREAS ELEC STIMJ EA 15 MIN 0 12:00:00 AM EST [facility] ([facility]) THERAPEUTIC PX 1/> AREAS EACH 15 MIN EXERCISES 12:00:00 AM EST [facility] ([facility]) THERAPEUTIC PX 1/> AREAS EACH 15 MIN EXERCISES 12:00:00 AM EST [facility] ([facility]) APPLICATION MODALITY 1/> AREAS HOT/COLD PACKS 09/21/20 20 12:00:00 AM EST [facility] ([facility]) APPL MODALITY 1/> AREAS ELEC STIMJ EA 15 MIN 0 12:00:00 AM EST [facility] ([facility]) THERAPEUTIC PX 1/> AREAS EACH 15 MIN EXERCISES 12:00:00 AM EST [facility] ([facility]) THERAPEUTIC PX 1/> AREAS EACH 15 MIN EXERCISES 12:00:00 AM EST [facility] ([facility]) APPLICATION MODALITY 1/> AREAS HOT/COLD PACKS 09/16/20 20 12:00:00 AM EST [facility] ([facility]) APPL MODALITY 1/> AREAS ELEC STIMJ EA 15 MIN 0 12:00:00 AM EST [facility] ([facility] ) THERAPEUTIC PX 1/> AREAS EACH 15 MIN EXERCISES 12:00:00 AM EST [facility] ([facility] ) THERAPEUTIC PX 1/> AREAS EACH 15 MIN EXERCISES 12:00:00 AM EST [facility] ([facility] ) THERAPEUTIC PX 1/> AREAS EACH 15 MIN EXERCISES 12:00:00 AM EST [facility] ([facility] ) THERAPEUTIC PX 1/> AREAS EACH 15 MIN EXERCISES 12:00:00 AM EST [facility] ([facility] ) APPL MODALITY 1/> AREAS ELEC STIMJ EA 15 MIN 0 12:00:00 AM EST [facility] ([facility] ) APPLICATION MODALITY 1/> AREAS HOT/COLD PACKS 09/14/20 12:00:00 AM EST [facility] ([facility] ) Ultrasound, Each 15 Min, Constant Attendance 0 12:00:00 AM EST [facility] ([facility] ) THERAPEUTIC PX 1/> AREAS EACH 15 MIN EXERCISES 12:00:00 AM EST [facility] ([facility] ) THERAPEUTIC PX 1/> AREAS EACH 15 MIN EXERCISES 12:00:00 AM EST [facility] ([facility] ) ARTHROCENTESIS ASPIR&/INJECTION MAJOR JT/BURSA 12:00:00 AM EST [facility] ([facility] ) APPLICATION MODALITY 1/> AREAS HOT/COLD PACKS 08/20/20 12:00:00 AM EST [facility] ([facility] ) APPL MODALITY 1/> AREAS ELEC STIMJ EA 15 MIN 0 12:00:00 AM EST [facility] ([facility] ) THERAPEUTIC PX 1/> AREAS EACH 15 MIN EXERCISES 12:00:00 AM EST [facility] ([facility] ) THERAPEUTIC PX 1/> AREAS EACH 15 MIN EXERCISES 12:00:00 AM EST [facility] ([facility] ) Re-Eval Of PT Established Plan Of Care 20Mins Face To Face P T/Fam 08/20/2020 12:00:00 AM EST [facility] ([facility] ) THERAPEUTIC PX 1/> AREAS EACH 15 MIN EXERCISES 12:00:00 AM EST [facility] ([facility] ) THERAPEUTIC PX 1/> AREAS EACH 15 MIN EXERCISES 12:00:00 AM EST [facility] ([facility] ) APPL MODALITY 1/> AREAS ELEC STIMJ EA 15 MIN 0 12:00:00 AM EST [facility] ([facility]) APPLICATION MODALITY 1/> AREAS HOT/COLD PACKS 08/18/20 12:00:00 AM EST [facility] ([facility] ) THERAPEUTIC PX 1/> AREAS EACH 15 MIN EXERCISES 12:00:00 AM EST [facility] ([facility] ) THERAPEUTIC PX 1/> AREAS EACH 15 MIN EXERCISES 12:00:00 AM EST [facility] ([facility] ) THERAPEUTIC PX 1/> AREAS EACH 15 MIN EXERCISES 12:00:00 AM EST [facility] ([facility] ) THERAPEUTIC PX 1/> AREAS EACH 15 MIN EXERCISES 12:00:00 AM EST [facility] ([facility] ) THERAPEUTIC PX 1/> AREAS EACH 15 MIN EXERCISES 12:00:00 AM EST [facility] ([facility] ) THERAPEUTIC PX 1/> AREAS EACH 15 MIN EXERCISES 12:00:00 AM EST [facility] ([facility] ) APPLICATION MODALITY 1/> AREAS HOT/COLD PACKS 08/03/20 12:00:00 AM EST [facility] ([facility] ) THERAPEUTIC PX 1/> AREAS EACH 15 MIN EXERCISES 12:00:00 AM EST [facility] ([facility] ) Physical Therapy Eval - Low Complexity 07/29/2020 12:0 0:00 AM EDT [facility] ([facility] ) MRI Upper Extremity Any Joint 06/24/2020 12:00:00 AM E DT [facility] ([facility] ) Plain chest X-ray (procedure) 02/09/2020 10:57:00 AM E DT [facility] Nucleic acid assay (procedure) 02/09/2020 12:00:00 AM EDT [facility] Results ID Date Data Source [id number] 11/19/2020 11:20:00 AM EST [facility] Name Value Range Interpretation Code Description Data Christianne rce(s) Supporting Document(s) SARS coronavirus 2 RNA Not Detected [facility] [place] This lab was ordered by [facility] and reported by [facility]. ID Date Data Source PLZ KNEE PARTIAL (AP/LAT) 03/29/2020 05:38:54 AM EDT eCW1 ([facility]) Name Value Range Interpretation Code Description Data Christianne rce(s) Supporting Document(s) PLZ KNEE PARTIAL (AP/LAT) eCW1 ([facility]) ID Date Data Source CPK CREATINE PHOSPHOKINASE 03/29/2020 05:37:34 AM EDT eCW1 ( [facility]) Name Value Range Interpretation Code Description Data Christianne rce(s) Supporting Document(s) 81 CPK CREATINE PHOSPHOKINASE eCW 1 ([facility]) ID Date Data Source LIPID PANEL (CARDIAC RISK) 03/29/2020 05:37:25 AM EDT eCW1 ( [facility]) Name Value Range Interpretation Code Description Data Christianne rce(s) Supporting Document(s) Cholesterol in LDL [Mass/volume] in Serum or Plasma by calculation 93 LDL CHOLESTEROL eCW1 ([facility]) Triglyceride [Mass/volume] in Serum or Plasma by calculation 338 TRIGLYCERIDES LEVEL eCW1 ([facility]) Cholesterol [Moles/volume] in Serum or Plasma 192 CHOLESTEROL LEVEL eCW1 ([facility]) Cholesterol in HDL [Moles/volume] in Serum or Plasma 31 HDL CHOLESTEROL eCW1 ([facility]) 6.193 CHOLESTEROL RISK RATIO eCW1 ([facility]) 161 NON-HDL-C eCW1 ([facility]) ID Date Data Source [id number] 03/29/2020 05:37:04 AM EDT eCW1 ([facility]) Name Value Range Interpretation Code Description Data Christianne rce(s) Supporting Document(s) Microalbumin/Creatinine [Mass Ratio] in Urine 108.0 CREATININE, URINE eCW1 ([facility]) Albumin/Creatinine [Mass Ratio] in Urine 7.3 MALB URINE SIEMENS eCW1 ([facility]) Microalbumin/Creatinine [Ratio] in Urine 6.7 FINA/CREAT RATIO eCW1 ([facility]) ID Date Data Source [id number] 03/29/2020 05:36:53 AM EDT eCW1 ([facility]) Name Value Range Interpretation Code Description Data Christianne rce(s) Supporting Document(s) Hemoglobin A1c/Hemoglobin.total in Blood 5.3 HEMOGLOBIN A1c eCW1 ([facility]) ID Date Data Source PSA SCREENING 03/29/2020 05:36:26 AM EDT eCW1 ([facility]) Name Value Range Interpretation Code Description Data Christianne rce(s) Supporting Document(s) 1.01 PSA SCREENING eCW1 ([facility]) ID Date Data Source LYME DISEASE SCRN WITH CONFIRM 02/12/2020 12:00:00 AM EDT eC W1 ([facility]) Name Value Range Interpretation Code Description Data Christianne rce(s) Supporting Document(s) <0.91 0.00-0.90 Lyme Disease IgG/IgM Anti manav eCW1 ([facility]) <0.80 0.00-0.79 Lyme Disease IgM Ab Quant itati eCW1 ([facility]) ID Date Data Source SASHA TITER & PATTERN 02/12/2020 12:00:00 AM EDT eCW1 ([facility]) Name Value Range Interpretation Code Description Data Christianne rce(s) Supporting Document(s) Negative . SASHA (HEP2) eCW1 ([facility]) ID Date Data Source CYCLIC CITRULLINATED PEPTIDE 02/12/2020 12:00:00 AM EDT eCW1 ([facility]) Name Value Range Interpretation Code Description Data Christianne rce(s) Supporting Document(s) 8 0-19 CYCLIC CITRULLINATED PEPTIDE e CW1 ([facility]) ID Date Data Source Reticulocyte Count Sysmex 02/12/2020 12:00:00 AM EDT eCW1 ([facility]) Name Value Range Interpretation Code Description Data Christinane rce(s) Supporting Document(s) 1.0 0.5-1.5 RETICULOCYTE % eCW1 ([facility]) ID Date Data Source VITAMIN B12 LEVEL 02/12/2020 12:00:00 AM EDT eCW1 ([facility]) Name Value Range Interpretation Code Description Data Christianne rce(s) Supporting Document(s) 399 360-91 VITAMIN B12 LEVEL eCW1 ([facility]) ID Date Data Source ERYTHROCYTE SEDIMENTATION RATE 02/12/2020 12:00:00 AM EDT eC W1 ([facility]) Name Value Range Interpretation Code Description Data Christianne rce(s) Supporting Document(s) 41 0-20 ERYTHROCYTE SEDIMENTATION RATE eCW1 ([facility]) ID Date Data Source RHEUMATOID FACTOR QUANT 02/12/2020 12:00:00 AM EDT eCW1 ([facility]) Name Value Range Interpretation Code Description Data Christianne rce(s) Supporting Document(s) < 10.0 <15.0 RHEUMATOID FACTOR QUANT eCW1 ( [facility]) ID Date Data Source FERRITIN 02/12/2020 12:00:00 AM EDT eCW1 ([facility]) Name Value Range Interpretation Code Description Data Christianne rce(s) Supporting Document(s) 264 45-388 FERRITIN eCW1 ([facility]) ID Date Data Source IRON (FE) 02/12/2020 12:00:00 AM EDT eCW1 ([facility]) Name Value Range Interpretation Code Description Data Christianne rce(s) Supporting Document(s) 73 65-175 IRON (FE) eCW1 ([facility]) ID Date Data Source FREE T4 & TSH PANEL 02/12/2020 12:00:00 AM EDT eCW1 ([facility]) Name Value Range Interpretation Code Description Data Christianne rce(s) Supporting Document(s) 1.530 0.358-3.740 THYROID STIMULATING HORM ONE eCW1 ([facility]) 1.43 0.76-1.46 FREE T4 eCW1 ([facility]) ID Date Data Source C REACTIVE PROTEIN QUANTITATIV (At [facility]) 02/12/2020 12:00 :00 AM EDT eCW1 ([facility]) Name Value Range Interpretation Code Description Data Christianne rce(s) Supporting Document(s) 3.42 0.00-0.30 C REACTIVE PROTEIN QUANTI TATIV eCW1 ([facility]) ID Date Data Source Comprehensive Metabolic Profile (CMP) 02/12/2020 12:00:00 AM EDT eCW1 ([facility]) Name Value Range Interpretation Code Description Data Christianne rce(s) Supporting Document(s) 127 70-100 GLUCOSE, FASTING eCW1 ([facility]) 1.18 0.70-1.30 CREATININE FOR GFR eCW1 ([facility]) 141 136-145 SODIUM LEVEL eCW1 ([facility]) > 60.0 >49 GLOMERULAR FILTRATION RATE eCW 1 ([facility]) 13 7-18 BLOOD UREA NITROGEN eCW1 ([facility]) 109 98-107 CHLORIDE LEVEL eCW1 ([facility]) 23 21-32 CARBON DIOXIDE LEVEL eCW1 ([facility]) 4.2 3.5-5.1 POTASSIUM SERUM eCW1 ([facility]) 27 12-78 ALT/SGPT eCW1 ([facility]) 89 45-117 ALKALINE PHOSPHATASE eCW1 ([facility]) 20 7-37 AST/SGOT eCW1 ([facility]) 8.7 8.8-10.2 CALCIUM LEVEL eCW1 ([facility]) 1.0 ALBUMIN/GLOBULIN RATIO eCW1 ([facility]) 3.9 3.2-5.2 ALBUMIN eCW1 ([facility]) 0.4 0.2-1.0 BILIRUBIN,TOTAL eCW1 ([facility]) 7.8 6.4-8.2 TOTAL PROTEIN eCW1 ([facility]) ID Date Data Source CBC with Differential 02/12/2020 12:00:00 AM EDT eCW1 ([facility]) Name Value Range Interpretation Code Description Data Christianne rce(s) Supporting Document(s) 5.1 4.0-10.0 WHITE BLOOD COUNT eCW1 ([facility]) 5.00 4.30-6.10 RED BLOOD COUNT eCW1 ([facility]) 45.3 42.0-52.0 HEMATOCRIT eCW1 ([facility]) 90.6 80.0-96.0 MEAN CORPUSCULAR VOLUME e CW1 ([facility]) 16.3 13.5-17.5 HEMOGLOBIN eCW1 ([facility]) 32.6 27.0-33.0 MEAN CORPUSCULAR HEMOGLOB IN eCW1 ([facility]) 166 150-450 PLATELET COUNT, AUTOMATED eCW1 ([facility]) 36.0 32.0-36.5 MEAN CORPUSCULAR HGB CONC eCW1 ([facility]) 12.8 11.5-14.5 RED CELL DISTRIBUTION WID TH eCW1 ([facility]) 3.0 0.0-3.0 EOS % eCW1 ([facility]) 31.8 24.0-44.0 LYMPH % eCW1 ([facility]) 11.3 0.0-5.0 MONO % eCW1 ([facility]) 53.5 36.0-66.0 NEUTROPHILS % eCW1 ([facility]) 1.6 1.5-5.0 LYMPH # eCW1 ([facility]) 2.7 1.5-8.5 NEUTROPHILS # eCW1 ([facility]) 0.2 0.0-1.0 BASO % eCW1 ([facility]) 0.0 0.0-0.2 BASO # eCW1 ([facility]) 0.2 0.0-0.5 EOS # eCW1 ([facility]) 0.6 0.0-0.8 MONO # eCW1 ([facility]) ID Date Data Source [id number] 02/09/2020 11:16:00 AM EDT [facility] [address] [place] [address] [phone] NAME SEX PT STATUS ACCOUNT NUMBER CHAYA GOMEZ [employer] [id number] ORDERING PHYSICIAN LOCATION MEDICAL RECORD NO. Percy Magana MD ER [id number] ATTENDING PHYSICIAN DATE OF DATE OF EXAM/TIME Doctor Provided,No Family 1960 02/09/20 / 1056 TYPE / EXAM Xray Chest One View REASON FOR EXAM chills body aches COMPARISON: None FINDINGS: The cardiac and mediastinal silhouettes appear normal and the lungs are clear. The bones and soft tissues are normal. The upper abdomen is unremarkable. IMPRESSION: No acute cardiopulmonary disease. Reported By Jayjay Wong MD on 02/09/201115 Signed By Jayjay Wong MD on 02/09/201115 Date Time CC: Jayjay Wong MD; No Family PHYS Provided Techn: MORSA Trans Dt/Tm: Trans by: DT Prt Dt/Tm: 3662-2847: Total DLP = 0.00 mGy-cm Fluoroscopy Time (in secs): Name Value Range Interpretation Code Description Data Christianne rce(s) Supporting Document(s) ID Date Data Source [id number] 02/09/2020 10:26:00 AM EDT [facility] @02/09/20 1025: MANUAL DIFF added. RFLXG = DIFF. @02/09/20 1025: MANUAL DIFF added. RFLXG = DIFF. Name Value Range Interpretation Code Description Data Christianne rce(s) Supporting Document(s) Leukocytes [#/volume] in Blood by Automated count 4.5 10*3/uL 4.45-10 .71 [facility] Erythrocytes [#/volume] in Blood by Automated count 4.86 10*6/uL 4.3- 6.1 N [facility] Hemoglobin [Moles/volume] in Blood 15.7 g/dL 13-18 N [facility] Hematocrit [Volume Fraction] of Blood by Automated count 43.8 % 4 2-52 N [facility] Erythrocyte mean corpuscular volume [Ent itic volume] in Cord blood by Automated count 90.1 fL 80-96 N [facility] ital Erythrocyte mean corpuscular hemoglobin [Entitic mass] by Automated count 32.3 pg 27-31 Above high normal [facility] spital Erythrocyte mean corpuscular hemoglobin concentration [Mass/volume] in Cord blood 35.8 g/dL 33-37 N [facility] ital Erythrocyte distribution width [Entitic volume] by Automated count 13 % 11-15 N [facility] Platelets [#/volume] in Blood by Automated count 110 10*3/uL 130-472 Below low normal [facility] Platelet mean volume [Entitic volume] in Blood 9.8 fL 9.1-13.1 N [facility] Neutrophils/100 leukocytes in Blood by Automated count 69.2 % 41- 77 N [facility] Neutrophils [#/volume] in Blood by Automated count 3.1 U 1.7-7.6 N [facility] Lymphocytes/100 leukocytes in Blood by Automated count 16.1 % 14- 46 N [facility] Lymphocytes [#/volume] in Blood by Automated count 0.7 U 0.6-4.6 N [facility] Monocytes/100 leukocytes in Blood by Automated count 13.2 % 4-12 Above high normal [facility] Monocytes [#/volume] in Blood by Automated count 0.6 U 0.2-1.2 N [facility] Eosinophils/100 leukocytes in Blood by Automated count 1.1 % 0-7 N [facility] Eosinophils [#/volume] in Blood by Automated count 0.1 U 0.0-0.5 N [facility] Basophils/100 leukocytes in Blood by Automated count 0.0 % 0.4-1.3 Below low normal [facility] Basophils [#/volume] in Blood by Automated count 0.0 U 0.0-0.2 N [facility] NUCLEATED RED BLOOD CELL 0 % [facility] NUCLEATED RED BLOOD CELL# 0 U [facility] Immature granulocytes [Presence] in Blood by Automated count 0-2 N [facility] Immature granulocytes [#/volume] in Blood by Automated count 0.0 U 0-0.1 N [facility] Manual Differential panel - Blood Manual Diff Added [facility] ID Date Data Source [id number] 02/09/2020 10:26:00 AM EDT [facility] @02/09/20 1025: MANUAL DIFF added. RFLXG = DIFF. @02/09/20 1025: MANUAL DIFF added. RFLXG = DIFF. Name Value Range Interpretation Code Description Data Christianne rce(s) Supporting Document(s) Urea nitrogen [Mass/volume] in Serum or Plasma 15 mg/dL 9-23 N [facility] Sodium [Moles/volume] in Serum or Plasma 139 mmol/L 132-146 N [facility] Potassium [Moles/volume] in Serum or Plasma 4.0 mmol/L 3.5-5.5 N [facility] Chloride [Moles/volume] in Serum or Plasma 109 mmol/L 99-109 N [facility] Carbon dioxide, total [Moles/volume] in Serum or Plasma 23 mmol/L 20 -31 N [facility] Anion gap in Serum or Plasma 11 mmol/L 8-16 N L [facility] Glucose [Mass/volume] in Serum or Plasma 132 mg/dL 74-106 Above high normal [facility] Creatinine 1.3 mg/dL 0.5-1.1 Above high normal [facility] Glomerular filtration rate/1.73 sq M.pre dicted [Volume Rate/Area] in Serum or Plasma 56 ml/min ABOVE 60 [facility] ital Alanine aminotransferase [Enzymatic acti vity/volume] in Serum or Plasma by With P-5'-P 18 U/L 10-49 [facility] ital Aspartate aminotransferase [Enzymatic ac tivity/volume] in Serum or Plasma by With P-5'-P 13 U/L 0-33 N [facility] pital Alkaline phosphatase [Enzymatic activity/volume] in Serum or Plasma 89 U/L 45-129 [facility] Calcium [Mass/volume] in Serum or Plasma 9.0 mg/dL 8.5-10.1 [facility] Bilirubin.total [Mass/volume] in Serum or Plasma 0.5 mg/dL 0.3-1.2 [facility] Albumin [Mass/volume] in Serum or Plasma by Bromocresol purple (BCP) dye binding method 3.7 g/dL 3.2-4.8 [facility] ital Protein [Mass/volume] in Serum or Plasma 7.6 g/dL 5.7-8.2 [facility] ID Date Data Source [id number] 02/09/2020 10:26:00 AM EDT [facility] @02/09/20 1025: MANUAL DIFF added. RFLXG = DIFF. @02/09/20 1025: MANUAL DIFF added. RFLXG = DIFF. Name Value Range Interpretation Code Description Data Christianne rce(s) Supporting Document(s) Cells counted [#] 100 [facility] Neutrophils [#/volume] in Blood by Manual count 75 % 41-77 N [facility] Lymphocytes [#/volume] in Blood by Manual count 15 % 14-46 N [facility] Monocytes [#/volume] in Blood by Manual count 10 % 4-12 N [facility] Platelets [#/volume] in Blood by Estimate APPEARS DECREASED NORMAL [facility] Morphology [Interpretation] in Blood Narrative APPEARS NORMAL NORMAL [facility] ID Date Data Source [id number] 02/09/2020 09:47:00 AM EDT [facility] ED Physician Documentation NAME: CHAYA GOMEZ : 1960 AGE: 60 MR#: [id number] SERVICE DATE: 02/09/[address]: Percy Magana MD PRIMARY CARE DR: No Family PHYS Provided ROOM#: HPI (Adult, General) General Chief Complaint: Multi system (Adult) Stated Complaint: FEVER,DIZZINESS Resident LTC, travel outisde home, exposure to hot tubs:: No Time Seen by Provider: 02/09/20 09:24 Source: patient Exam Limitations: no limitations History of Present Illness Initial Comments: 60-year-old white male planing of chills body aches since Sunday with occasionaldizziness. Has felt feverish no chest pain no difficulty breathing. Denies any headache neck pain no rash no known exposure COVID-19. Patient was tested for COVID-19 at the end of November at time he had some chest pain difficulty breathing which resolved. 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 Past Medical History Past Medical History: Nursing Past Medical History Has Been Reviewed Allergies/Home Meds Allergies Allergy/AdvReac Type Severity Reaction Status Date / Time No Known Drug Allergies Allergy Verified 02/09/20 09:42 Home Medications Medication Instructions Recorded Confirmed Last Taken Type No Known Home Medications 02/09/20 02/09/20 Unknown History ER plan Plan of care and ER treatment: An ER treatment plan was discussed with patient and family, Patient encouraged to ask questions about plan and ER treatments and Patient agrees with ER plan of care PMH (from Triage) Patient Medical History PMH Reviewed/Updated as Needed: Yes Hx Drug Resistant Infections Hx Other Resistant Infection?: No Isolation: Standard precautions Hx Recent Travel Nurse screening for coronavirus: Recent Travel outside the No country (where) Has patient experienced Yes coronavirus symptoms Coronavirus symptoms fever experienced Social History Are you in a relationship with/Does anyone hit you, yell/swear at you, steal from you?: No Substance Use Second Hand Smoke Exposure: No Smoking Status: Current some day smoker Tobacco Use Tobacco Products:: Cigars Vaccination History Hx/Date of Tetanus, Diphtheria Vaccination: Yes Hx/Date of Influenza Vaccination: No Hx/Date of Pneumococcal Vaccination: No Immunizations Up to Date: Yes ROS Review of Systems Constitutional: Reports fever, chills and sweats; Denies weakness and malaise Eyes: Denies vision change ENT: Denies throat pain Respiratory: Denies cough, sputum and SOB Cardiovascular: Denies chest pain and palpitations Gastrointestinal: Reports diarrhea; Denies nausea, vomiting and abdominal pain Genitourinary-Male: Denies dysuria and frequency Musculoskeletal: Denies neck pain and back pain Skin/Breasts: Denies rash Neurologic: Reports lightheadedness; Denies weakness, numbness, headache, incoordination and vertigo Psychiatric: Reports No Symptoms/Complaints Endocrine: Reports No Symptoms/Complaints Hematological/Lymphatic: Reports No Symptoms/Complaints Allergic/Immunologic: Reports No Symptoms/Complaints Physical Exam General Physical Exam Narrative: White male no acute distress Limitations: no limitations General appearance: alert and in no apparent distress Head Head exam: Present atraumatic, normocephalic and normal inspection Eye Eye exam: Present normal apperance ENT ENT exam: Present normal exam and mucous membranes dry Neck Neck exam: Present normal inspection, full ROM and supple Respiratory Respiratory exam: Present normal lung sounds bilaterally Cardiovascular Cardiovascular Exam: Present regular rate and normal rhythm Extremities Exam Extremities exam: Present normal inspection and full ROM; Absent pedal edema Back Exam Back exam: Present normal inspection and full ROM Neurological Exam Neurological exam: Present alert and oriented X3 Psychiatric Psychiatric exam: Present normal affect Skin Skin exam: Present warm, dry, intact and normal color; Absent rash Vital Signs Vital Signs: Vital Signs 02/09/20 09:56 Temperature 98.4 F Pulse Rate 105 H Respiratory Rate 16 Blood Pressure 164/81 O2 Sat by Pulse Oximetry 98 MDM (comprehensive) Lab Data Labs: 02/09/20 10:00 02/09/20 10:00 Laboratory Results Last 24 hours 02/09/20 10:00: WBC 4.5, RBC 4.86, Hgb 15.7, Hct 43.8, MCV 90.1, MCH 32.3 H, MCHC 35.8, RDW 13, Plt Count 110 L, MPV 9.8, Immature Gran % (Auto) 0.4, Neut % (Auto) 69.2, Lymph % (Auto) 16.1, Pitkin % (Auto) 13.2 H, Eos % (Auto) 1.1, Baso % (Auto) 0.0 L, Lymph # (Auto) 0.7, Abs Immat Gran (auto) 0.0,Add Manual Diff Manual diff added, Total Counted 100, Neutrophils (Manual) 75, Absolute Neutro phils 3.1, Lymphocytes (Manual) 15, Monocytes (Manual) 10, Monocytes # 0.6, Absolute Eosinophils 0.1, Absolute Basophils 0.0, Platelet Estimate Appears decreased, RBC Morphology Appears normal 02/09/20 10:00: Sodium 139, Potassium 4.0, Chloride 109, Carbon Dioxide 23, Anion Gap 11, BUN 15, Creatinine 1.3 H, GFR Calculation 56, Glucose 132 H, Calcium 9.0, Total Bilirubin 0.5, AST 13, ALT 18, Alkaline Phosphatase 89, Serum Total Protein 7.6, Albumin 3.7 Microbiology 02/09/20 09:44 Nasopharyngeal Respiratory Panel (PCR) - Final No Organisms Detected Labs reviewed no significant abnormalities Radiology Data Radiology results: report reviewed Radiology impressions: Chest x-ray reviewed normal Medical Decision Making Free Text/Narative:: 60-year-old white male complaining of chills body aches since Sunday Was tested for COVID-19 in November negative Denies any chest pain or difficulty breathing Patient examin ed using respiratory precautions Vital signs stable afebrile pulse ox 97% on room air Lungs clear We will check labs chest x-ray Follow-up Chest x-ray normal Labs normal We will discharge patient home Discharge Plan Admission/Discharge Dx Primary DC Diagnosis: Viral syndrome ED Provider: Percy Magana ED Status: Registered Time Seen by Provider: 02/09/20 09:24 Triaged At: 02/09/20 09:17 Condition Condition: Stable Discharge Detail Disposition: Home, Self-Care Med Rec New Prescriptions: No Action No Known Home Medications RF: 0 Discharge Education Printouts: Viral Syndrome (ED) Medications Medication reconciliation performed by provider at discharge: Yes Forms Forms Work Release: Work/School/Activ/Gym Release Follow Up Care/Instructions Diet/Activity/Wound Care..: The results of your COVID-19 test are pending Self quarantine until results of testing are reported May take Tylenol as directed for body aches and/or fever *Discharge Patient* Discharge Orders: Discharge Order (Routine); Ordered 02/09/20 Ordered By: Percy Magana Interventions Interventions: ED General Adult Last Done: 02/09/20 09:40 Report Signers: <Electronically signed by Percy Magana MD> Percy Magana MD 02/09/20 1202 Percy Magana MD SIGNATURE DA Report Cosigners: D: DIBMI 02/09/20946 T: DIBMI 02/09/20946 CC: No Family PHYS Provided Name Value Range Interpretation Code Description Data Christianne rce(s) Supporting Document(s) ID Date Data Source [id number] 02/10/2020 02:06:00 PM EDT [facility] Name Value Range Interpretation Code Description Data Christianne rce(s) Supporting Document(s) COVID-19 SHASHA (SARS-CoV-2) Not Detected Not Detected [facility] Testing was performed using the james(R) SARS-CoV-2 test.This test was developed and its performance characteristicsdetermined by [employer]. This test has not beenFDA cleared or approved. This test has been authorized byA under an Emergency Use Authorization (EUA). This testis only authorized for the duration of time the declarationthat circumstances exist justifying the authorization ofthe emergency use of in vitro diagnostic tests fordetection of SARS-CoV-2 virus and/or diagnosis of COVID-19infection under section 564(b)(1) of the Act, 21 U.S.C.360bbb-3(b)(1), unless the authorization is terminated orrevoked sooner. When diagnostic testing is negative, thepossibility of a false negative result should be consideredin the context of a patient's recent exposures and thepresence of clinical signs and symptoms consistent withCOVID- 19. An individual without symptoms of COVID-19 andwho is not shedding SARS-CoV-2 virus would expect to have anegative (not detected) result in this assay.Per formed at: [place] - [facility] [address] [id number] Director: Abena Kim MD, Phone: [phone] ID Date Data Source [id number] 02/09/2020 10:56:00 AM EDT [facility] THIS TESTS FOR HUMAN CORONAVIRUS NOT COVID-19FilmArray Respiratory Panel is a Multiplexed NAAT-PCR testNORMAL VALUE FOR ALL 20 PATHOGENS IS "NOT DETECTED".The FilmArray RP panel detects Influenza A H1,H3 bln2113 H1 viruses,Influenza B virus, Respiratory syncytialvirus, Human metapneumovirus,Parainfluenza virus 1,2,3, and4, Adenovirus,Rhino/Enterovirus,Coronavirus HKU 1, Nl63,OC43, and 229E,Bordetella pertussis, Bordetellaparapertussis, Mycoplasma pneumoniae and Chlamydiapneumoniae.THIS TEST HAS NOT BEEN EVALUATED FOR USE WITH SPECIMENSOTHER THAN NASOPHARYNGEAL SWAB SPECIMENS.THE PERFORMANCE OF THIS TEST HAS NOT BEEN ESTABLISHED FORPATIENTS WITHOUT SIGNS AND SYMPTOMS OF RESPIRATORYINFECTION.RESULTS FROM THIS TEST MUST BE CORRELATED WITH CLINICALHISTORY, EPIDEMIOLOGICAL DATA , AND OTHER DATA AVAILABLE TOTHE CLINICIAN EVALUATING THE PATIENT.THE PERFORMANCE OF THE FilmARRAY RP HAS NOT BEEN ESTABLISHEDIN INDIVIDUALS WHO RECEIVED INFLUENZA VACCINE. RECENTADMINISTRATION OF A NASAL INFLUENZA VACCINE MAY CAUSE AFALSE POSITIVE RESULT FOR INFLUENZA A AND/OR B.NEGATIVE RESULTS SHOULD NOT BE USED THE SOLE BASIS FORDIAGNOSIS, TREATMENT, OR OTHER MANAGEMENT DECISIONS.NEGATIVE RESULTS IN THE SETTING OF A RESPIRATORY ILLNESSMAYBE DUE TO INFECTION WITH PATHOGENS THAT ARE NOT DETECTEDBY THIS TEST OR LOWER RESPIRATORY TRACT INFECTION THAT ISNOT DETECTED BY A NASOPHARYNGEAL SWAB SPECIMEN.No Organisms Detected Name Value Range Interpretation Code Description Data Christianne rce(s) Supporting Document(s) ID Date Data Source [id number] 02/09/2020 09:44:00 AM EDT [facility] Name Value Range Interpretation Code Description Data Christianne rce(s) Supporting Document(s) SARS CORONAVIRUS 2 RNA [facility] This lab was ordered by [facility] and reported by [facility]. ID Date Data Source [id number] 01/07/2020 01:28:24 PM EDT [facility] Name Value Range Interpretation Code Description Data Christianne rce(s) Supporting Document(s) Provider Note [facility] pital RACYVm1fNmHOUergwF2DJRBmMZ8ocdw9IEkyV4QiGKQmweJpOKPkJ1viKMCFJWOFSRHddP2bWTFjGbqI vYm [file] u0HKsz7zSm2bsUb4+ANESTHESIOLOGIST AND CRITICAL CARE/Dw16rnKCWFbROrfXR0604Kyd/z/dC+4oqf3i7xXVcrJaHefhp0DRpzehXUcW [file] MDAwMDAgbiAKMDAwMDAwMjcwMiAwMDAwMCBuIAowMD ZyQNSxBfGzIPHxWMWaXK8lNcYmCOMuBRF1SPCsBMVmAUUxrzCARAHoHZCqLnatHDAgDUIoJHKaMRvrWV DyCNEoUCt5UPKjNVKbMV1xMnSkLIFfAzBoUjdeBNClTVOxxaCIVLMrXGVqDntgMQLhNHTwDJCcYTcyHC FkIVKtVElgYGXcSNHxRG7hSqSyBMUwQOK6ESypZUEg VHZaatOBMISyZZMuBIG2PZUaCMXbVIQvPXarLPZqQWGgGlyhGMSpNFItIU9kJfGpRFRfZiL1AcLsMZMz FHSbnyNXYCGqCIUkDFF4ZxAxUXGoVEPqOBfkPZRxAYZiBzq9LQCtHTXwBM8tRuCzHBNmLvB3KHDaRLKm YWJtdvOVdETojQablog1THhiTO1Bo006OBLpMYPCOc VuJ3lhTc4lJFMkOMCKZQLyUPFrQcuZLBDqCQGEHGRYMuIhIql3TuUNCcBdOmLZRXOWELT2Ds6cXIODPn YHFvLYHJFRXHMwMXu3NCTNHUIwBWJ2P4NnOuGlIf7WWSOzA1s7CLYoEIq+TfosyUWmdBlyPWCHVwB9Tj GPSOPTJ0WB ID Date Data Source [id number] 01/07/2020 01:20:35 [place] [address] TELEPHONE RADIOLOGY DEPARTMENT Name: [facility] #: [id number] : 1960 Ordering Physician: TANIA GOOD Sex: M Date: 01/03/20 Admission Type: E/R X-ray Number: [id number] Unsigned Transcriptions are preliminary reports and do not represent a Medical or Legal Document XRAY CHEST 2 VIEW PA - LATERA [id number] COMPLETE:01/03/20 05:16 RLL [id number] (REASON FOR CHEST: SHORTNESS OF BREATH FINDINGS PA and Lateral 2 views submitted. No acute consolidation in the process. Mild bibasilar subsegmental atelectasis and or parenchymal scarring is not excluded. Lungs are expanded. The heart is not enlarged. There is no adenopathy. No pleural effusion. The bones are demineralized with degenerative changes. IMPRESSION: No acute pulmonary disease. Electronically Reviewed and Signed By YUDITH FINNEY MD, MD 01/07/20 13:20 Dictating Initials: AL Transcribe Date: 01/05/20 15:25 Transcribe Initials: BBS Name Value Range Interpretation Code Description Data Christianne rce(s) Supporting Document(s) ID Date Data Source [id number] 01/07/2020 01:20:30 [place] [address] TELEPHONE RADIOLOGY DEPARTMENT Name: [facility] #: [id number] : 1960 Ordering Physician: TANIA GOOD Sex: M Date: 01/05/20 Admission Type: E/R X-ray Number: [id number] Unsigned Transcriptions are preliminary reports and do not represent a Medical or Legal Document CT CHEST-THORAX W/O CONTRAST [id number] COMPLETE:01/03/20 09:46 RLL [id number] (REASON FOR CHEST: SHORTNESS OF BREATH PATIENT WEIGHT [address] scan of the chest acquired. Axial, coral sagittal evaluated. Prior comparison not available. Bibasilar subsegmental atelectasis. There is mild lung glass lung opacity associated with this and associated infiltrate and are not excluded. This is not at all typical for COVID 19 infection but of course this cannot be entirely excluded. There are few nodular opacities appreciated especially the right upper lobe which are tiny and what appears to be acute disease. There is no significant pleural effusion. The lungs are expanded bilaterally. No mediastinal or axillary adenopathy by CT size criteria. The aortic and coronary artery calcification. The aorta is tortuous. No mass visualized portions of the liver, spleen or adrenal gland and are within normal limit noncontrast examination. The visualized skeleton demonstrates bony demineralization degenerative changes. IMPRESSION: [id number] [place] [address] TELEPHONE RADIOLOGY DEPARTMENT Name: [facility] #: [id number] : 1960 Ordering Physician: TANIA GOOD Sex: M Date: 01/05/20 Admission Type: E/R X-ray Number: [id number] Unsigned Transcriptions are preliminary reports and do not represent a Medical or Legal Document Bibasilar subsegmental atelectasis. Associated infiltrate are not excluded. The appearance is a typical for COVID 19 but of course cannot be entirely excluded. Correlate clinically. While performing the above CT exam, radiation dose reduction was accomplished utilizing automated exposure control, adjusting of the ma and KV based on the patient's body size and/or the use of imperative reconstructive techniques. CT dose in mGy*CM: 427.4 Electronically Reviewed and Signed By YUDITH FINNEY MD, MD 01/07/20 13:20 Dictating Initials: AL Transcribe Date: 01/05/20 14:00 Transcribe Initials: BBS Name Value Range Interpretation Code Description Data Christianne rce(s) Supporting Document(s) ID Date Data Source [id number] 01/03/2020 04:27:27 PM EDT [facility] Name Value Range Interpretation Code Description Data Christianne rce(s) Supporting Document(s) ER Note [facility] [id number]9YQgaQ5XkUYYzoeBaRILvW9pmGNBDWRKXDRGkzM8hSKEoDyqS vYm [file] c2LJvn6kSd5saTk1+ANESTHESIOLOGIST AND CRITICAL CARE/Ui09agHAVCwINdwEA3564Qdd/z/dC+1szh6g2zWPqxOsKmxty6IBrjdqVNfR [file] biAKMDAwMDAyNDkzMyAwMDAwMCBuIAowMDAwMDIyNj bcQWVhUZQxJD5kYmEwUUJdYwE9YUQiJJDoUJKmzvJGVOBfXEAfPMW9KLBfNLFyLYAzUJmrWHFqCIZ2FB N3CJWfHVYgCU5tPmSkGTVdUahbRTUqRUDtSNBweyCRWFAiNHUvIENiUKGzQMErEIFmKLpzZPTgUKL5Wh T4JLXvQDPjET8lQrGbIMIcWfO1DDKgUIVbAZFqmvIS XMOpVHCwHHSkEHIiJRUaKBZeUTplDFAbAOPxPvB5JCYgXXSsHB6aVoCiQXKdLyKzHRczVDFtNISnkwHK RJBjWEOkTWPlEhYdQYOnLNCqZVehUHQlUHH5YOD4WOOpJKUzLE6qQvYvLGLjGvD3ERMtNVPlAXZgwiXH pZVvuZlwgzt2GRdcVE2Wl403GZWvQBRCLnOrT8ogDo 5sDSRdYFWWLYWjWTCiYcq6IeO6YAV3JBIoTXVNKVsfL7Q1RSK7JnQtJGK3JHP3GD6kEKeILPuTPgQUGL D2NJV5HvR5JcYXNFapOTP1MeC1DqynDy7HWQMpF3x9MBIyWre+PgpzdGFydHhyZWYKMzUyMDQKJSVFT0 YK ID Date Data Source [id number] 01/03/2020 03:00:00 PM EDT [facility] Name Value Range Interpretation Code Description Data Christianne rce(s) Supporting Document(s) Troponin I.cardiac [Mass/volume] in Serum or Plasma <0.017 ng/mL 0.017 - 0.060 [facility] \\BLDo\\TROPONIN I I NTERPRETATION:\\BLDx\\ < 0.06 ng/mL NOT SUSPICIOUS FOR AN AMI 0.06 - 0.59 ng/mL IGANG ZONE FOR AN AMI, SERIAL MONITORING RECOMMENDED 0.6 - 1.5 ng/mL SUSPICIOUS FOR AN AMI Reference range updated for new chemiluminescent immunoassay method based on [employer] technology. Effective 05/13/18. ID Date Data Source [id number] 01/03/2020 09:00:00 AM EDT [facility] Name Value Range Interpretation Code Description Data Christianne rce(s) Supporting Document(s) Troponin I.cardiac [Mass/volume] in Serum or Plasma <0.017 ng/mL 0.017 - 0.060 [facility] \\BLDo\\TROPONIN I I NTERPRETATION:\\BLDx\\ < 0.06 ng/mL NOT SUSPICIOUS FOR AN AMI 0.06 - 0.59 ng/mL GIANG ZONE FOR AN AMI, SERIAL MONITORING RECOMMENDED 0.6 - 1.5 ng/mL SUSPICIOUS FOR AN AMI Reference range updated for new chemiluminescent immunoassay method based on [employer] technology. Effective 05/13/18. ID Date Data Source [id number] 01/03/2020 08:10:00 AM EDT [facility] Name Value Range Interpretation Code Description Data Christianne rce(s) Supporting Document(s) RESP PROFILE NASAL PCR [facility] \\BLDo\\RESPIRATORY PROFILE NASAL PHARYNGEAL BY PCR\\BLDx\\ \\BLDo\\DETECTED _NONE \\BLDx\\ 01/03/20.KJV. \\BLDo\\EQUIVOCAL _NONE \\BLDx\\ 01/03/20.KJV.SENT TO [facility] FOR COVID-19 TESTING VIRUSES ADENOVIRUS NOT DETECTED NORMAL: NOT DETECTED [facility] CORONAVIRUS 229E NOT DETECTED NORMAL: NOT DETECTED [facility] CORONAVIRUS HKU1 NOT DETECTED NORMAL: NOT DETECTED [facility] CORONAVIRUS NL63 NOT DETECTED NORMAL: NOT DETECTED [facility] CORONAVIRUS OC43 NOT DETECTED NORMAL: NOT DETECTED [facility] TESTING DOES NOT INCLUDE NO OLIVER 2019 CORONAVIRUS HUMAN METAPNEUMO NOT DETECTED NORMAL: NOT DETECTED [facility] HUMAN RHINO/ENTERO NOT DETECTED NORMAL: NOT DETECTED [facility] NOT DETECTEDNOT DETECTEDNOT DETECTEDNOT DETECTED PARAINFLUENZA V3 NOT DETECTED NORMAL: NOT DETECTED [facility] NOT DETECTED RSV NOT DETECTED NORMAL: NOT DETECTED [facility] BACTERIANOT DET ECTEDNOT DETECTEDNOT DETECTEDNOT DETECTED TESTING PERFORMED ON THE United Dental CareARRAY RESPIRATORY PANEL 2-IVD FOR THE DIAGNOSIS OF UPPER RESPIRATORY INFECTIONS BY POLYMERASE CHAIN REACTION (PCR METHODOLOGY) ID Date Data Source [id number] 01/03/2020 08:10:00 AM EDT [facility] Name Value Range Interpretation Code Description Data Christianne rce(s) Supporting Document(s) SARS COV2 SHASHA [facility] pital _SARS CoV2 [id number], NAAReport ed: 01/07/2020 08:05 Status=F RESULT FLAG RANGE UNITS SC --SARS-CoV-2, SHASHA Not Detected Not Detected RN 01/07/20.0805.rfl.CORRCTD .LCTRTesting was performed using the james(R) SARS-CoV-2 test.This test was developed and its performance characteristics determinedby [employer]. This test has not been FDA cleared orapproved. This test has been authorized by FDA under an Emergency UseAuthorization (EUA). This test is only authorized for the duration oftime the declaration that circumstances exist justifying theauthorization of the emergency use of in vitro diagnostic tests fordetection of SARS-CoV-2 virus and/or diagnosis of COVID-19 infectionunder section 564(b)(1) of the Act, 21 U.S.C. 360bbb-3(b)(1), unlessthe authorization is terminated or revoked sooner.RN Test performed by: [facility] [address] [address] Abena Kim MD 01/07/20.XMT.SENT REF 01/07/20.XMT.SENT REF ID Date Data Source [id number] 01/03/2020 08:10:00 AM EDT [facility] Name Value Range Interpretation Code Description Data Christianne rce(s) Supporting Document(s) SARS CORONAVIRUS 2 RNA [facility]. ID Date Data Source [id number] 01/03/2020 04:15:00 AM EDT [facility] Name Value Range Interpretation Code Description Data Christianne rce(s) Supporting Document(s) CBC [facility] l COMPLETE BLOOD COUNT Leukocytes [#/volume] in Blood by Automated count 12.5 K/uL 4.0 - 10.0 Above high normal [facility] Erythrocytes [#/volume] in Blood by Automated count 5.35 M/uL 4.30 - 6.10 [facility] Hemoglobin [Mass/volume] in Blood 17.1 g/dL 13.5 - 17.5 [facility] Hematocrit [Volume Fraction] of Blood by Automated count 49.0 % 3 9.0 - 50.0 [facility] Erythrocyte mean corpuscular volume [Entitic volume] by Auto mated count 91.6 fL 80.0 - 96.0 [facility] Erythrocyte mean corpuscular hemoglobin [Entitic mass] by Automated count 32.0 pg 26.0 - 34.0 [facility] Erythrocyte mean corpuscular hemoglobin concentration [Mass/volume] by Automated count 34.9 g/dL 32.0 - 36.0 [facility] Erythrocyte distribution width [Ratio] by Automated count 13.4 % 11.6 - 14.8 [facility] Platelets [#/volume] in Blood by Automated count 192 K/uL 150 - 450 [facility] Platelet mean volume [Entitic volume] in Blood by Automated count 10.9 fL 7.1 - 10.4 Above high normal [facility] Neutrophils [#/volume] in Blood by Automated count 9.03 K/uL 1.70 - 7.70 Above high normal [facility] Lymphocytes [#/volume] in Blood by Automated count 2.01 K/uL 1.50 - 6.00 [facility] Monocytes [#/volume] in Blood by Automated count 1.20 K/uL 0.00 - 1.00 Above high normal [facility] Eosinophils [#/volume] in Blood by Automated count 0.23 K/uL 0.00 - 0.30 [facility] Basophils [#/volume] in Blood by Automated count 0.02 K/uL 0.00 - 0. 10 [facility] 0.04 Urinalysis macro (dipstick) panel - Urine 0.000 10^3/uL 0.000 - 0.012 [facility] Neutrophils/100 leukocytes in Blood by Automated count 72.1 % 42. 2 - 75.2 [facility] Lymphocytes/100 leukocytes in Blood by Automated count 16.0 % 15. 0 - 41.0 [facility] Monocytes/100 leukocytes in Blood by Automated count 9.6 % 0.0 - 12.0 [facility] Eosinophils/100 leukocytes in Blood by Automated count 1.8 % 0.0 - 7.0 [facility] 0.20.30 NRBC 0.0 % [facility] NOT INDICATED [facility] RBC MORPH NOT INDICATED [facility] ID Date Data Source [id number] 01/03/2020 04:15:00 AM EDT [facility] Name Value Range Interpretation Code Description Data Christianne rce(s) Supporting Document(s) BASIC METABOLIC PANEL [facility] BASIC METABOLIC PANEL Sodium [Moles/volume] in Serum or Plasma 141 mEq/L 136 - 145 [facility] Potassium [Moles/volume] in Serum or Plasma 4.3 mEq/L 3.5 - 5.1 [facility] Chloride [Moles/volume] in Serum or Plasma 104 mEq/L 98 - 107 [facility] Carbon dioxide, total [Moles/volume] in Serum or Plasma 24.7 mEq /L 21.0 - 32.0 [facility] Glucose [Mass/volume] in Serum or Plasma 115 mg/dL 70 - 100 Above high normal [facility] Urea nitrogen [Mass/volume] in Serum or Plasma 12 mg/dL 7 - 18 [facility] CREATININE SERUM 1.27 mg/dL 0.70 - 1.30 [facility] AGE 59 yrs [facility] HEIGHT 70.[address] [facility] ital eGFR NON-AFR AMR 58 [facility] eGFR AFR AMR >60 [facility] BUN/CREAT 9 6 - 25 [facility] Calcium [Mass/volume] in Serum or Plasma 9.2 mg/dL 8.8 - 10.2 [facility] ANION GAP 17 5 - 15 Above high normal [facility] Estimated GFR reference r orquidea: > 60 mL/min/1.73m >18 years: Calculated using IDMS traceable MDRD Study Equation <18 years: Calculated using IDMS traceable Bedside García Equation ID Date Data Source [id number] 01/03/2020 04:15:00 AM EDT [facility] Name Value Range Interpretation Code Description Data Christianne rce(s) Supporting Document(s) LIVER PROFILE [facility] HEPATIC PANEL Protein [Mass/volume] in Serum or Plasma 8.0 g/dL 6.0 - 8.3 [facility] Albumin [Mass/volume] in Serum or Plasma 4.3 g/dL 3.8 - 5.4 [facility] GLOBULIN 3.7 g/dL 2.0 - 4.0 [facility] A/G RATIO 1.2 0.8 - 2.0 [facility] Bilirubin.total [Mass/volume] in Serum or Plasma 0.4 mg/dL 0.2 - 1.0 [facility] Bilirubin.direct [Mass/volume] in Serum or Plasma 0.1 mg/dL 0.0 - 0. 2 [facility] INDIRECT BILI 0.3 mg/dL 0.0 - 1.1 [facility] ALK PHOSPHATASE 92 U/L 40 - 129 [facility] ospital Aspartate aminotransferase [Enzymatic ac tivity/volume] in Serum or Plasma by With P-5'-P 30 IU/L 7 - 37 [facility] Alanine aminotransferase [Enzymatic acti vity/volume] in Serum or Plasma by With P-5'-P 23 IU/L 12 - 78 [facility] ID Date Data Source [id number] 01/03/2020 04:15:00 AM EDT [facility] Name Value Range Interpretation Code Description Data Christianne rce(s) Supporting Document(s) Troponin I.cardiac [Mass/volume] in Serum or Plasma <0.017 ng/mL 0.017 - 0.060 [facility] \\BLDo\\TROPONIN I I NTERPRETATION:\\BLDx\\ < 0.06 ng/mL NOT SUSPICIOUS FOR AN AMI 0.06 - 0.59 ng/mL GIANG ZONE FOR AN AMI, SERIAL MONITORING RECOMMENDED 0.6 - 1.5 ng/mL SUSPICIOUS FOR AN AMI Reference range updated for new chemiluminescent immunoassay method based on [employer] technology. Effective 05/13/18. ID Date Data Source [id number] 01/03/2020 04:15:00 AM EDT [facility] Name Value Range Interpretation Code Description Data Christianne rce(s) Supporting Document(s) Fibrin D-dimer DDU [Mass/volume] in Platelet poor plas ma by Immunoassay 358 ng/mL 0 - 400 [facility] METHODOLOGY: FLUORESCENCE IMM UNOASSAY \\BLDo\\D- DIMER INTERPRETATION\\BLDx\\ Elevated D-dimer levels occur in a number of clinical situations and are not diagnostic of any specific condition. While increased levels are not specific for DVT or PE, low D-dimer levels may be used to rule out these conditions. Limitations: Specimens from patients who have routinely exposed to animals or to animal serum products may have contain heterophile antibodies, which may cause erroneous D-dimer results. Procedure Social History Code Duration Value Status Description Data Source(s ) Smoking 07/22/2020 12:00:00 AM EDT Never Smoker completed Never S moker eCW1 ([facility]) Smoking 07/22/2020 12:00:00 AM EDT Never Smoker completed Never S moker eCW1 ([facility]) Smoking 03/29/2020 12:00:00 AM EDT Never Smoker completed Never S moker eCW1 ([facility]) Smoking 03/29/2020 12:00:00 AM EDT Never Smoker completed Never S moker eCW1 ([facility]) Smoking 03/01/2020 12:00:00 AM EDT Never Smoker completed Never Madina rod eCW1 ([facility]) Smoking 03/01/2020 12:00:00 AM EDT Never Smoker completed Never Madina rod eCW1 ([facility]) 02/09/2020 09:56:59 AM EDT Current some day smoker com pleted Current some day smoker [facility] Smoking 02/09/2020 09:56:00 AM EDT Current some day smoker com pleted Current some day smoker [facility] Vital Signs ID Date Data Source UNK Name Value Range Interpretation Code Description Data Source(s) Body surface area Derived from formula 2.35 m2 2.35 m2 [facility] ([facility]) Body weight 116.575 kg 116.575 kg [facility] ([facility]) [place] body weight 172 [lb_av] 172 [lb_av] [facility] ([facility]) Body mass index (BMI) [Ratio] 35.8 kg/m2 35.8 k g/m2 [facility] ([facility]) Body weight 257.00 [lb_av] 257.00 [lb_av] [facility] Body height 71 [in_i] 71 [in_i] [facility] ([facility]) 5'11" Body temperature 98.7 [degF] 98.7 [degF] [facility] ([facility]) Diastolic blood pressure 78 mm[Hg] 78 mm[Hg] eCW1 ([facility]) Systolic blood pressure 138 mm[Hg] 138 mm[Hg] e CW1 ([facility]) Body temperature 96.5 [degF] 96.5 [degF] eCW1 ( [facility]) Respiratory rate 18 /min 18 /min eCW1 ([facility]) Heart rate 108 /min 108 /min eCW1 ([facility]) Body mass index (BMI) [Ratio] 36.30 kg/m2 36.30 kg/m2 [facility] ([facility]) Body height 70 [in_i] 70 [in_i] eCW1 ([facility]) Body weight 253 [lb_av] 253 [lb_av] eCW1 ([facility]) Body mass index (BMI) [Ratio] 35.1 kg/m2 35.1 k g/m2 [facility] ([facility]) Body weight 245.00 [lb_av] 245.00 [lb_av] [facility] T ([facility]) Body height 70 [in_i] 70 [in_i] [facility] ([facility]) 5'10" Body temperature 96.7 [degF] 96.7 [degF] [facility] ([facility]) Diastolic blood pressure 76 mm[Hg] 76 mm[Hg] eCW1 ([facility]) Systolic blood pressure 118 mm[Hg] 118 mm[Hg] e CW1 ([facility]) Body temperature 97.4 [degF] 97.4 [degF] eCW1 ( [facility]) Respiratory rate 17 /min 17 /min eCW1 ([facility]) Heart rate 78 /min 78 /min eCW1 ([facility]) Body mass index (BMI) [Ratio] 35.90 kg/m2 35.90 kg/m2 eCW1 ([facility]) Body height 70 [in_i] 70 [in_i] eCW1 ([facility]) Body weight 250.2 [lb_av] 250.2 [lb_av] eCW1 ([facility]) Diastolic blood pressure 60 mm[Hg] 60 mm[Hg] eCW1 ([facility]) Systolic blood pressure 118 mm[Hg] 118 mm[Hg] e CW1 ([facility]) Body temperature 97.5 [degF] 97.5 [degF] eCW1 ( [facility]) Respiratory rate 18 /min 18 /min eCW1 ([facility]) Heart rate 80 /min 80 /min eCW1 ([facility]) Body mass index (BMI) [Ratio] 36.10 kg/m2 36.10 kg/m2 eCW1 ([facility]) Body height 70 [in_i] 70 [in_i] eCW1 ([facility]) Body weight 251.6 [lb_av] 251.6 [lb_av] eCW1 ([facility]) Diastolic blood pressure 78 mm[Hg] 78 mm[Hg] eCW1 ([facility]) Systolic blood pressure 136 mm[Hg] 136 mm[Hg] e CW1 ([facility]) Body temperature 96.9 [degF] 96.9 [degF] eCW1 ( [facility]) Respiratory rate 17 /min 17 /min eCW1 ([facility]) Heart rate 104 /min 104 /min eCW1 ([facility]) Body mass index (BMI) [Ratio] 36.50 kg/m2 36.50 kg/m2 eCW1 ([facility]) Body height 70 [in_us] 70 [in_us] eCW1 ([facility]) Body weight Measured 254.4 [lb_av] 254.4 [lb_av ] eCW1 ([facility]) Patient Treatment Plan of Care Planned Activity Planned Date Details Description Data Source (s) doxycycline hyclate 100 MG Oral Capsule 07/22/2020 12:00:00 AM EDT eCW1 ([facility]) benzonatate 200 MG Oral Capsule 07/22/2020 12:00:00 AM EDT eCW1 ([facility]) doxycycline hyclate 100 MG Oral Capsule 07/22/2020 12:00:00 AM EDT eCW1 ([facility]) benzonatate 200 MG Oral Capsule 07/22/2020 12:00:00 AM EDT eCW1 ([facility]) celecoxib 100 MG Oral Capsule [Celebrex] 03/01/2020 12:00:00 AM EDT eCW1 ([facility]) gabapentin 100 MG Oral Capsule 03/01/2020 12:00:00 AM EDT eCW1 ([facility]) celecoxib 100 MG Oral Capsule [Celebrex] 03/01/2020 12:00:00 AM EDT eCW1 ([facility]) gabapentin 100 MG Oral Capsule 03/01/2020 12:00:00 AM EDT eCW1 ([facility]) Fluticasone Propionate 50 MCG/ACT 02/12/2020 12:00:00 AM EDT eCW1 ([facility])
--- OUTSIDE RECORDS SUMMARY | 2020-11-24 06:06 | CCD ---
Continuity of Care Document (CCD) Created on: 09/08/2020 Eduardo Berman External Reference #: [id number] : [id number] Sex: Male Author Author Eduardo WAITE MD Organization Unknown Address [address] [place] [address] Phone [phone] Care Team Providers Care Metal Coater Operator Name Role Phone Yvette Cooper AUTM [phone] Kishor Mays MD AUT Unavailable Problems Description [...] Yvette Cooper FNP Gabapentin 100mg Capsules Radha Hudson RPA-C Celecoxib 100mg Capsules Radha Hudson RPA-C Fluticasone Propionate 50mcg/Act Suspension Radha Hudson RPA-C 0 Immunizations Description No Information Available Vital Signs Date Vital Result Comment 06/11/2020 11:47am Body Temperature 96.7 F Height 70 inches 5'10" Weight 245.00 lb BMI (Body Mass Index) 35.1 kg/m2 Results Description No Information Available Procedures Date Code Description Status 08/30/2020 45200 Inject/Drain Joint/Bursa Major C ompleted 08/20/2020 93152 Re-Eval Of PT Establ ished Plan Of Care 20Mins Face To Face PT/Fam Completed 08/20/2020 10767 Therapeutic Procedure, Each 15 M inutes Completed 08/20/2020 11554 Therapeutic Procedure, Each 15 M inutes Completed 08/20/2020 28507 Electrical Stimulati on Manual, Each 15 Min, Constant Attendance Completed 08/20/2020 77326 Hot Or Cold Packs Completed 08/18/2020 20754 Therapeutic Procedure, Each 15 M inutes Completed 08/18/2020 34053 Therapeutic Procedure, Each 15 M inutes Completed 08/18/2020 78751 Electrical Stimulati on Manual, Each 15 Min, Constant Attendance Completed 08/18/2020 51040 Hot Or Cold Packs Completed 08/12/2020 03461 Therapeutic Procedure, Each 15 M inutes Completed 08/12/2020 65840 Therapeutic Procedure, Each 15 M inutes Completed 08/10/2020 51763 Therapeutic Procedure, Each 15 M inutes Completed 08/10/2020 35437 Therapeutic Procedure, Each 15 M inutes Completed 08/05/2020 46984 Therapeutic Procedure, Each 15 M inutes Completed 08/05/2020 74623 Therapeutic Procedure, Each 15 M inutes Completed 08/03/2020 30528 Therapeutic Procedure, Each 15 M inutes Completed 08/03/2020 86123 Hot Or Cold Packs Completed 07/29/2020 59936 Physical Therapy Eval - Low Comp lexity Completed 06/24/2020 57039 MRI Upper Extremity Any Joint Co mpleted [...] Future Appointment(s):* 09/16/2020 9:00 am - Sanjay CondonTMarva at Physical Therapy * 09/14/2020 9:00 am - Sanjay Hernandez P.T. at Physical Therapy * 09/09/2020 11:00 am - Sanjay CondonTMarva at Physical Therapy * 10/04/2020 8:30 am - Wesley Waite MD at [place] 08/30/2020 - Wesley Waite MD* S46.011D Strain of muscle(s) and tendon(s) of the rotator cuff of right shoulder, subsequent encounter Functional Status Description No Information Available Mental Status Description No Information Available Referrals Refer to Dr Reason for Referral Status Appt Date Wesley Waite MD PT- RT SHOULDER OK TO [facility] 2N D SET PASSED TO PT DEPT. Created [address] [place] [address] [phone] Wesley Waite MD PT- RT SHOULDER OK TO [facility] 1S T SET PASSED TO PT DEPT. Created [address] [place] [address] [phone] Wesley Waite MD MRI RT SHOULDER OK TO [facility] PER MTGS. P ASSED TO XRAY. Created [address] [place] [address] [phone]
--- OUTSIDE RECORDS SUMMARY | 2020-11-24 06:06 | CCD | Continuity of Care Document ---
Author Author dEuardo HERNANDEZ P.T. Organization Unknown Address [address] [place] [address] [address] [place] [address] Phone [phone] Care Team Providers Care Conduit Bender Name Role Phone Yvette Cooper [employer] SAL[employer] SERVICE [employer]P AUTM [phone] Kishor Mays MD AUT Unavailable Problems Description [...] Available Procedures Date Code Description Status 08/30/2020 03287 Inject/Drain Joint/Bursa Major C ompleted 08/20/2020 95508 Re-Eval Of PT Establ ished Plan Of Care 20Mins Face To Face PT/Fam Completed 08/20/2020 03466 Therapeutic Procedure, Each 15 M inutes Completed 08/20/2020 26128 Therapeutic Procedure, Each 15 M inutes Completed 08/20/2020 04597 Electrical Stimulati on Manual, Each 15 Min, Constant Attendance Completed 08/20/2020 03997 Hot Or Cold Packs Completed 08/18/2020 41094 Therapeutic Procedure, Each 15 M inutes Completed 08/18/2020 12140 Therapeutic Procedure, Each 15 M inutes Completed 08/18/2020 87001 Electrical Stimulati on Manual, Each 15 Min, Constant Attendance Completed 08/18/2020 44048 Hot Or Cold Packs Completed 08/12/2020 48058 Therapeutic Procedure, Each 15 M inutes Completed 08/12/2020 62655 Therapeutic Procedure, Each 15 M inutes Completed 08/10/2020 43127 Therapeutic Procedure, Each 15 M inutes Completed 08/10/2020 68180 Therapeutic Procedure, Each 15 M inutes Completed 08/05/2020 89383 Therapeutic Procedure, Each 15 M inutes Completed 08/05/2020 39237 Therapeutic Procedure, Each 15 M inutes Completed 08/03/2020 96042 Therapeutic Procedure, Each 15 M inutes Completed 08/03/2020 06670 Hot Or Cold Packs Completed 07/29/2020 54652 Physical Therapy Eval - Low Comp lexity Completed 06/24/2020 29901 MRI Upper Extremity Any Joint Co mpleted [...] Waite MD Plan of Treatment Future Appointment(s):* 10/04/2020 8:30 am - Wesley Waite MD at [facility] 08/30/2020 - Wesley Waite MD* S46.011D Strain of muscle(s) and tendon(s) of the rotator cuff of right shoulder, subsequent encounter Functional Status Description No Information Available Mental Status Description No Information Available Referrals Refer to Dr Reason for Referral Status Appt Date Wesley Waite MD PT- RT SHOULDER OK TO [facility] 1S T SET PASSED TO PT DEPT. Created [address] [place] [address] [phone] Wesley Waite MD MRI RT SHOULDER OK TO [facility] PER [facility]. P ASSED TO XRAY. Created [address] [place] [address] [phone]
--- OUTSIDE RECORDS SUMMARY | 2020-11-24 06:06 | CCD | Continuity of Care Document ---
Author Author Eduardo WAITE MD Organization Unknown Address [address] [place] [address] Phone [phone] Care Team Providers Care Adult High School Instructor Name Role Phone Yvette Cooper AUTM [phone] Kishor Mays MD AUT Unavailable Problems Description [...] Tablets 1 tab before bed 14tabs S46.011A Wesely Waite MD 0 Tadalafil 20mg Tablets Yvette [...] Information Available Procedures Date Code Description Status 08/20/2020 26962 Re-Eval Of PT Establ ished Plan Of Care 20Mins Face To Face PT/Fam Completed 08/20/2020 67353 Therapeutic Procedure, Each 15 M inutes Completed 08/20/2020 41359 Therapeutic Procedure, Each 15 M inutes Completed 08/20/2020 44382 Electrical Stimulati on Manual, Each 15 Min, Constant Attendance Completed 08/20/2020 77574 Hot Or Cold Packs Completed 08/18/2020 52036 Therapeutic Procedure, Each 15 M inutes Completed 08/18/2020 82409 Electrical Stimulati on Manual, Each 15 Min, Constant Attendance Completed 08/18/2020 97811 Hot Or Cold Packs Completed 08/12/2020 79513 Therapeutic Procedure, Each 15 M inutes Completed 08/12/2020 14185 Therapeutic Procedure, Each 15 M inutes Completed 08/10/2020 27497 Therapeutic Procedure, Each 15 M inutes Completed 08/10/2020 68075 Therapeutic Procedure, Each 15 M inutes Completed 08/05/2020 42558 Therapeutic Procedure, Each 15 M inutes Completed 08/05/2020 42893 Therapeutic Procedure, Each 15 M inutes Completed 08/03/2020 13733 Therapeutic Procedure, Each 15 M inutes Completed 08/03/2020 95825 Hot Or Cold Packs Completed 07/29/2020 70352 Physical Therapy Eval - Low Comp lexity Completed 06/24/2020 25731 MRI Upper Extremity Any Joint Co mpleted Medical Devices Description No Information Available Encounters Type Date Location Provider Dx Diagnosis Office Visit 07/15/2020 9:00a Brenda Waite MD S46. 011A Strain of musc/tend the rotator cuff of right shoulder, init S80.01xD Contusion of right knee, sub sequent encounter Office Visit 06/11/2020 11:15a Brenda Waite MD S46. 011A Strain of musc/tend the rotator cuff of right shoulder, init S80.01xA Contusion of right knee, ini tial encounter Assessments Date Code Description Provider 08/30/2020 Z47.1 Aftercare following joint replac ement surgery Wesley Waite MD 08/30/2020 S46.011D Strain of muscle(s) and tendon(s) of the rotator cuff of right shoulder, subsequent encounter Wesley Waite MD 08/20/2020 Z47.1 Aftercare following joint replac ement surgery Sanjay Hernandez P.T. 08/20/2020 S46.011D Strain of muscle(s) and tendon(s) [...] encounter Wesley Waite MD Plan of Treatment 08/30/2020 - Wesley Waite MD* Z47.1 Aftercare following joint replacement surgery* Follow up:* 1 month with anm for rt shoulder re-check * S46.011D Strain of muscle(s) and tendon(s) of the rotator cuff of right shoulder, subsequent encounter Functional Status Description No Information Available Mental Status Description No Information Available Referrals Refer to Reason for Referral Status Appt Date Wesley Waite MD PT- RT SHOULDER OK TO [facility] 1S T SET PASSED TO PT DEPT. Created [address] [place] [address] [phone] Wesley Waite MD MRI RT SHOULDER OK TO [facility] PER [facility]. P ASSED TO XRAY. Created [facility] [place] [address] [phone]
[2020-11-24] MEDS ORDERED: fentaNYL 100 MCG/2 ML INJECTION (J3010) IV PRN ×2 (07:01→10:30)
[2020-11-24] MEDS ORDERED: EPINEPHrine 1MG/ML INJ 30ML MD-VIAL As Ordered ONE (07:09)
[2020-11-24] MEDS ORDERED: LIDOCAINE 2% 100MG/5ML SDV (FOR ANES.) As Ordered ONE ×2 (07:10→07:13)
[2020-11-24] MEDS ORDERED: ONDANSETRON 4MG/2ML VIAL As Ordered ONE ×2 (07:10→07:13)
[2020-11-24] MEDS ORDERED: SUGAMMADEX SODIUM 500 MG/5 ML VIAL (BRIDION) As Ordered ONE ×2 (07:10→07:13)
[2020-11-24] MEDS ORDERED: ACETAMINOPHEN 1000MG 100ML IV BTL (OFIRMEV) (J0131 PER 10MG) As Ordered ONE (07:10)
[2020-11-24] MEDS ORDERED: dexameTHASONE 4 MG/ML 1ML VIAL (J1100 PER 1MG) As Ordered ONE ×2 (07:10→07:13)
[2020-11-24] MEDS ORDERED: propofoL 200 MG/20 ML VIAL As Ordered ONE ×2 (07:10→07:13)
[2020-11-24] MEDS ORDERED: KETOROLAC 60MG 2ML VIAL As Ordered ONE ×2 (07:10→07:13)
[2020-11-24] MEDS ORDERED: ROCURONIUM BROMIDE 50 MG/5 ML VIAL As Ordered ONE (07:10)
[2020-11-24] MEDS ORDERED: MIDAZOLAM INJ 2MG/2ML VIAL (J2250 PER 1MG) As Ordered ONE (07:11)
[2020-11-24] MEDS ORDERED: fentaNYL 100 MCG/2 ML INJECTION (J3010) As Ordered ONE (07:11)
[2020-11-24] MEDS ORDERED: ROPIvacaine 0.5% 30ML INJECTION (J2795 PER 1MG) XX ONE (07:30)
[2020-11-24] MEDS ORDERED: EPINEPHrine INJ 1 MG/ML 1ML AMP XX ONE (07:30)
[2020-11-24] MEDS ORDERED: LIDOCAINE 1% MDV 20ML VIAL XX ONE (07:30)
[2020-11-24] MEDS ORDERED: BUPIVACAINE HCL 0.5% 30 ML VIAL As Ordered ONE (07:33)
[2020-11-24] MEDS: MIDAZOLAM INJ 2MG/2ML VIAL (J2250 PER 1MG) IV PRN ×2 (07:35→07:42)
[2020-11-24] MEDS ORDERED: dexameTHASONE 10MG/1ML VIAL PRES.FREE (J1100 PER 1MG) As Ordered ONE (07:43)
[2020-11-24] MEDS ORDERED: BUPIVACAINE HCL 0.5% 30 ML VIAL XX ONE (07:45)
[2020-11-24] MEDS ORDERED: LR 1,000 ML IV SCH (10:30)
[2020-11-24] MEDS ORDERED: ONDANSETRON 4MG/2ML VIAL IV PRN (10:30)
[2020-11-24] MEDS ORDERED: METOCLOPRAMIDE INJ 10MG/2ML VIAL (J2765 PER 1) IV PRN (10:30)
[2020-11-24] MEDS ORDERED: oxyCODONE 5MG TAB PO PRN (10:30)
[2020-11-24 14:15] VITALS: BP 142/75
--- NOTE | 2020-11-24 15:38 | RO ---
OPERATIVE NOTE DATE OF OPERATION: 11/24/2020 PREOPERATIVE DIAGNOSIS: Right shoulder intrasubstance rotator cuff tear plus AC joint arthrosis. POSTOPERATIVE DIAGNOSIS: Right shoulder intrasubstance rotator cuff tear plus AC joint arthrosis plus type 2 SLAP tear and impingement. PLANNED PROCEDURE: Right shoulder arthroscopy, subacromial decompression, distal clavicle excision, possible rotator cuff repair, possible subpectoral biceps tenodesis. PROCEDURE PERFORMED: Right shoulder arthroscopy, subacromial decompression, distal clavicle excision, debridement distal clavicle excision, subpectoral biceps tenodesis. SURGEON: Johnnie Beebe MD. MANAGEMENT LEAD: Dominic Kendall MD. GEAR REPAIRER: None. TYPE OF ANESTHETIC: General anesthetic plus preoperative block. PREOPERATIVE PREAMBLE: This 60-year-old man had shoulder pain. He had pain at the AC joint as well as an intrasubstance 50% tear of the supraspinatus tendon. We discussed the pros, cons, risks, and benefits of going ahead with arthroscopic management of his right shoulder. He wished to proceed. He had no further questions. I marked the right upper extremity, and the patient had a preoperative block. OPERATIVE REPORT: The patient was brought to the operating theater. He was then administered general anesthetic. Placed in right lateral decubitus with the aid of the smith bag positioner. All bony prominences were padded. Axillary roll was used as well as down leg padded over the peroneal nerve. Two grams of IV Ancef were administered prior to the start of the case. Limb was prepped and draped in the usual sterile fashion. Chlorhexidine base prep solution was applied. Over three minutes of prep solution drying time was used prior to draping. Patient was draped in the lateral decubitus position right side up with the aid of the longitudinal retraction of 15 pounds. Preoperative time out was performed confirming the site, the patient, and the surgery. We began be inserted the scope through a standard posterior portal. Examined the full intraarticular extent of the shoulder. Only grade 1 softening of the glenoid cartilage overall was normal. Humeral head cartilage appeared normal. Axillary recess was normal. No loose bodies. Anterior labrum had slight amount of anterior fraying. I used inside-out spinal needle localization to perform a portal through the rotator interval just posterior to the biceps tendon. Performed gentle debridement of the anterior labrum. The rotator cuff tendon appeared normal with no obvious fraying but partial thickness tears. This was the same with the supraspinatus as well as subscapularis. Biceps had longitudinal fraying as well as synovitis and evidence of type 2 SLAP tear with instability of the root of the biceps tendon. As such, I made the decision to perform an intraarticular biceps tenotomy with the use of electrocautery. I then inserted the scope into the subacromial space. There was a moderate amount of benign appearing bursitis. I cleared this away using a shaving instrument brought in through the earlier created lateral portal. There was type 2 acromion, gentle slope with a narrowing of the anterior aspect of the subacromial space. We performed a subacromial decompression using a db instrument for a thickness of 5 mm. Identified the distal clavicle. AC joint had a moderate amount of arthrosis. Performed a distal clavicle excision using a db brought in from laterally as well as the anterior portal at the AC joint which was made just anterior to the AC joint. I performed a distal clavicle excision for 1.1 cm and confirmed this on both direct visualization as well as putting a scope in through the anterior AC joint portal, taking arthroscopy pictures, and saving them onto the system throughout. The scope was withdrawn. I then turned my attention to the subpectoral biceps tenodesis. Made an anterior longitudinal incision overlying the long head of the biceps at the anteromedial aspect of the upper humerus just distal to the pectoralis major insertion. Carried the dissection down through skin and subcutaneous tissue and achieved meticulous hemostasis. Incised the fascia longitudinally. Applied upward retraction on the pectoralis major. Identified the long head of the biceps tendon. Using electrocautery, longitudinally released the transverse humeral ligament. Identified the long head of the biceps and delivered this through the incision. Placed an Allis clamp on the end of the tendon. I used the Arthrex button kit. I used the #2 FiberWire with a Surendra needle to perform five locking stitches at the tendon and then locked it proximally and cut the slice. Passed the tendon of the suture ends in a crisscross fashion through the button. I then used a FiberLink suture through the tendon using a Boateng needle for future use. I then passed the spade tip drill pin bicortically at the biceps groove I then over reamed the proximal end of the tunnel with a 7 mm reamer. I thoroughly irrigated any bone dust. I then removed the pin and passed the button to the far cortex slipping the button and delivering the tendon into the tunnel. I then passed one suture in through the FiberLink to lock the sutures over top of the tendon for backup fixation and tied five interrupted half stitches and cut the sutures short. Wound was thoroughly irrigated. Subcutaneous tissue closed with interrupted 2-0 Vicryl sutures and skin with running 3-0 Monocryl. Skin was cleaned with a dry dressing followed by application of Steri-Strips, Adaptic, 4 x 8 gauze, ABD dressing, and cloth tape. Patient's upper extremity was placed into a sling. Patient was awoken from general anesthetic, transferred off the operating table, and taken to the Postanesthetic Care Unit in stable condition. All sponge count, needle count, and instrument counts were correct. No complications. Estimated blood loss was 20 mL. Plan for patient is to start pendulum exercises but no active range of motion of the shoulder or lifting greater than half a pound. Follow up in clinic in two weeks' time. He will be discharged home with current Day Surgery criteria. Prescription of choice will be sent to [facility] electronically. LAURA
== END 2020-11-24 14:45 | disposition home or self-care (01) ==
LOC: M SDC 06:00
PROVIDERS: ATTEND Orthopaedic Surgery Sports Medicine
DX: M19.011 Primary osteoarthritis, right shoulder (principal); M75.111 Incomplete rotator cuff tear or rupture of right shoulder, not specified as traumatic; M75.51 Bursitis of right shoulder; S43.491A Other sprain of right shoulder joint, initial encounter; M65.821 Other synovitis and tenosynovitis, right upper arm; F17.290 Nicotine dependence, other tobacco product, uncomplicated
CPT/HCPCS: 29824; 29826; 29828; 88304; C1713; J0131; J0690; J1100; J1885; J2250; J2405; J3010

== ENCOUNTER → 2021-03-11 | Outpatient (CLI) | payer OTHER ==
[~2021-03-11] MED LIST changes: -LIDOCAINE 1% MDV 20ML VIAL SQ PRN; -LR 1,000 ML IV ONE; -ceFAZolin SOD 2 GM in IV 1 EA IV ONE
--- NOTE | 2021-03-11 12:45 | REP ---
INDICATION: PAIN STIFFNESS AFT DEBRIDEMENT SAD BICEP TENODESIS. Right shoulder arthroscopy, 11/24/2020, with subacromial decompression, distal clavicle excision, biceps tenodesis. COMPARISON: 06/24/2020. TECHNIQUE: Coronal oblique T1, T2 fat sat, sagittal oblique T2 fat sat, axial T2 fat sat, gradient echo. FINDINGS: Rotator cuff: There is again evidence of a partial intrasubstance tear of the supraspinatus tendon as well as infraspinatus tendon. Acromioclavicular joint: There is evidence of excision of distal end of clavicle with mild widening of the interval between the clavicle and acromion and mild fluid at that location. Acromion: Type 2 Biceps Tendon: There is evidence of biceps tenodesis. The visualized biceps tendon inferior to its humeral insertion is unremarkable. Hill Sach's deformity: None. Deltoid muscle: No abnormal signal. Labrum: Grossly unremarkable. Cartilage: No defects. Mild chondromalacia. Bone marrow: No abnormal signal. Joint fluid: There is a small joint effusion. There is mild fluid in the subacromial/subdeltoid bursae. IMPRESSION: Partial intrasubstance tears supraspinatus and infraspinatus tendons. Postsurgical findings as discussed above. Small joint effusion. Mild fluid in the subacromial/subdeltoid bursae. <Electronically signed by Talha Ramirez > 03/11/21 [id number]
== END ==
LOC: M PLARAD 10:00
PROVIDERS: ATTEND Orthopaedic Surgery Sports Medicine
DX: S43.431D Superior glenoid labrum lesion of right shoulder, subsequent encounter (principal); Z47.89 Encounter for other orthopedic aftercare; X58.XXXD Exposure to other specified factors, subsequent encounter; Y92.9 Unspecified place or not applicable; M25.411 Effusion, right shoulder

== ENCOUNTER → 2021-04-22 | Outpatient (CLI) | payer OTHER | LOC: M LABSMTC 13:01 | PROVIDERS: ATTEND Anesthesiology | DX: Z01.812 Encounter for preprocedural laboratory examination (principal); Z20.822 Contact with and (suspected) exposure to COVID-19 ==

== ENCOUNTER 2021-04-25 20:57 | Emergency (ER) | payer OTHER ==
[~2021-04-25] VITALS: Ht 177.8 cm; Wt 113.6 kg
[2021-04-25 21:49] LABS: BASO % 0.3 % (0.0-1.0); EOS % 0.4 % (0.0-3.0); HEMATOCRIT 44.6 % (42.0-52.0); HEMOGLOBIN 15.9 g/dl (13.5-17.5); LYMPH # 1.1 10^3/uL (1.5-5.0); LYMPH % 10.5 % (24.0-44.0); MEAN CORPUSCULAR HEMOGLOBIN 32.1 pg (27.0-33.0); MEAN CORPUSCULAR HGB CONC 35.7 g/dl (32.0-36.5); MEAN CORPUSCULAR VOLUME 89.9 fl (80.0-96.0); MONO # 0.6 10^3/uL (0.0-0.8); MONO % 5.3 % (2.0-8.0); NEUTROPHILS # 8.9 10^3/uL (1.5-8.5); NEUTROPHILS % 82.9 % (36.0-66.0); PLATELET COUNT, AUTOMATED 211 10^3/uL (150-450); RED BLOOD COUNT 4.96 10^6/uL (4.30-6.10); WHITE BLOOD COUNT 10.7 10^3/uL (4.0-10.0)
[2021-04-25 22:17] LABS: BILIRUBIN,DIRECT 0.1 MG/DL (0.0-0.2); BILIRUBIN,TOTAL 0.3 MG/DL (0.2-1.0); TOTAL PROTEIN 7.6 GM/DL (6.4-8.2)
[2021-04-25] MEDS ORDERED: ONDANSETRON 4MG/2ML VIAL IV ONE (22:50)
[2021-04-25] MEDS ORDERED: KETOROLAC 30 MG/ML 1ML VIAL IV ONE (22:50)
[2021-04-25] MEDS ORDERED: NS 1,000 ML IV ONE (22:50)
[2021-04-26 01:17] VITALS: BP 120/63
--- NOTE | 2021-04-26 10:15 | REP ---
INDICATION: left flank pain, renal colic repeat dictation. Preliminary report is provided at the time of the exam by junior CERVANTES. COMPARISON: None. TECHNIQUE: Helical scanning is acquired and 3 mm axial images were reformatted. Coronal and sagittal MPR images were generated and reviewed. FINDINGS: Preliminary digital motor tune up specialist radiograph is unremarkable. The lung bases are clear on axial CT images. There is no evidence of pleural effusion or ascites. The liver and the spleen are normal in size homogeneous in texture. Gallbladder is unremarkable. No adrenal lesion is seen. No pancreatic abnormality is seen. There is subtle fullness in the left renal pelvis and left ureter. Mild Cesilia ureteral edema is seen. No ureteral calculus is observed. The findings may relate to recent stone passage. Urinary bladder is unremarkable and empty. No intrarenal calculus is seen on either side. There are nasty Modic suture lines in the rectosigmoid colon and in the right lower quadrant small bowel in this patient status post subtotal colectomy. No abdominal wall defect is seen. No retroperitoneal mass or adenopathy is observed. No bony destructive lesion. IMPRESSION: Equivocal fullness in the collecting system and ureter on the left with no calculus or obstructive etiology. Question recent stone passage. Status post partial colectomy. A otherwise no acute abnormality. <Electronically signed by Mak Cooper > 04/26/21 1011
== END 2021-04-26 01:36 | disposition home or self-care (01) ==
LOC: M ED 20:57
DX: R31.9 Hematuria, unspecified (principal); R10.9 Unspecified abdominal pain; Z90.49 Acquired absence of other specified parts of digestive tract
CPT/HCPCS: 74176; 80047; 80076; 81001; 83605; 83690; 85025; 96361; 96374; 96375; 99284; J1885; J2405

== ENCOUNTER 2021-04-27 06:10 | Inpatient (IN) | payer OTHER ==
[~2021-04-27] VITALS: Ht 177.8 cm; Wt 113.1 kg
[2021-04-27] VITALS (8 sets, daily range): BP systolic 118–137; BP diastolic 65–75
[2021-04-27] MEDS ORDERED: LR 1,000 ML IV ONE (06:30)
[2021-04-27] MEDS ORDERED: ceFAZolin SOD 2 GM in IV 1 EA IV ONE (06:35)
[2021-04-27] MEDS ORDERED: fentaNYL 100 MCG/2 ML INJECTION As Ordered ONE (06:46)
[2021-04-27] MEDS ORDERED: ePHEDrine SULFATE 25 MG/5 ML(5MG/ML) SYRINGE As Ordered ONE (06:47)
[2021-04-27] MEDS ORDERED: dexameTHASONE 4 MG/ML 1ML VIAL (J1100 PER 1MG) As Ordered ONE (06:47)
[2021-04-27] MEDS ORDERED: SUGAMMADEX SODIUM 500 MG/5 ML VIAL (BRIDION) As Ordered ONE (06:47)
[2021-04-27] MEDS ORDERED: propofoL 200 MG/20 ML VIAL As Ordered ONE (06:47)
[2021-04-27] MEDS ORDERED: ROCURONIUM BROMIDE 50 MG/5 ML VIAL As Ordered ONE (06:47)
[2021-04-27] MEDS ORDERED: ONDANSETRON 4MG/2ML VIAL As Ordered ONE ×2 (06:47→09:16)
[2021-04-27] MEDS ORDERED: LIDOCAINE 2% 100MG/5ML SDV (FOR ANES.) As Ordered ONE (06:47)
[2021-04-27] MEDS ORDERED: ACETAMINOPHEN 1000MG 100ML IV BTL (OFIRMEV) (J0131 PER 10MG) As Ordered ONE (06:47)
[2021-04-27] MEDS ORDERED: PHENYLephrine 500MCG 5ML (100MCG/ML) SYRINGE As Ordered ONE (06:47)
[2021-04-27] MEDS ORDERED: MIDAZOLAM INJ 2MG/2ML VIAL (J2250 PER 1MG) IV PRN (07:01)
[2021-04-27] MEDS ORDERED: fentaNYL 100 MCG/2 ML INJECTION IV PRN ×2 (07:01→09:45)
[2021-04-27] MEDS ORDERED: LIDOCAINE 1% MDV 20ML VIAL As Ordered ONE (07:15)
[2021-04-27] MEDS ORDERED: EPINEPHrine 1MG/ML INJ 30ML MD-VIAL As Ordered ONE (07:15)
[2021-04-27] MEDS ORDERED: dexameTHASONE 10MG/1ML VIAL PRES.FREE (J1100 PER 1MG) XX ONE (07:20)
[2021-04-27] MEDS ORDERED: EPINEPHrine INJ 1 MG/ML 1ML AMP XX ONE (07:20)
[2021-04-27] MEDS ORDERED: ROPIvacaine 0.5% 30ML INJECTION (J2795 PER 1MG) XX ONE (07:20)
[2021-04-27] MEDS ORDERED: ONDANSETRON 4MG/2ML VIAL IV PRN ×2 (09:45→09:55)
[2021-04-27] MEDS ORDERED: oxyCODONE 5MG TAB PO PRN (09:45)
[2021-04-27] MEDS ORDERED: LR 1,000 ML IV SCH (09:45)
[2021-04-27] MEDS ORDERED: MORPHINE 2 MG/ML 1ML VIAL (J2270) IV PRN (09:55)
[2021-04-27] MEDS ORDERED: PERCOCET 5MG/325MG TAB PO PRN (09:55)
[2021-04-27] MEDS ORDERED: ACETAMINOPHEN TAB 650MG DOSE (2X325MG) PO PRN (09:55)
[2021-04-27] MEDS: LR 1,000 ML IV SCH ×2 (13:55→17:55)
[2021-04-28 02:00] VITALS: BP 125/70
[2021-04-28 06:00] VITALS: BP 115/65
[2021-04-28 06:27] LABS: HEMATOCRIT 40.8 % (42.0-52.0); HEMOGLOBIN 14.7 g/dl (13.5-17.5); MEAN CORPUSCULAR HEMOGLOBIN 32.3 pg (27.0-33.0); MEAN CORPUSCULAR VOLUME 89.7 fl (80.0-96.0); PLATELET COUNT, AUTOMATED 213 10^3/uL (150-450); RED BLOOD COUNT 4.55 10^6/uL (4.30-6.10); WHITE BLOOD COUNT 17.1 10^3/uL (4.0-10.0)
[2021-04-28 06:47] LABS: BLOOD UREA NITROGEN 12 MG/DL (7-18); CALCIUM LEVEL 8.8 MG/DL (8.8-10.2); CARBON DIOXIDE LEVEL 24 MEQ/L (21-32); CHLORIDE LEVEL 109 MEQ/L (98-107); CREATININE FOR GFR 1.11 MG/DL (0.70-1.30); GLOMERULAR FILTRATION RATE > 60.0 (>49); GLUCOSE, FASTING 99 MG/DL (70-100); MAGNESIUM LEVEL 1.9 MG/DL (1.8-2.4); POTASSIUM SERUM 4.1 MEQ/L (3.5-5.1); SODIUM LEVEL 140 MEQ/L (136-145)
[2021-04-28] MEDS ORDERED: PERCOCET PO (08:35)
== END 2021-04-28 10:05 | disposition home or self-care (01) | DRG 315 ==
LOC: M SDC 06:10 → M MS5PR 12:30 → M SDC 14:56 → M MS5PR 14:57
PROVIDERS: ADMIT Orthopaedic Surgery Sports Medicine; ATTEND Internal Medicine
PROC: 0LB Tendons, Excision (ICD-10-PCS; principal; 2021-04-27 07:30)
PROC: 0RN Upper Joints, Release (ICD-10-PCS; 2021-04-27 07:30)
DX: M25.611 Stiffness of right shoulder, not elsewhere classified (principal); M65.811 Other synovitis and tenosynovitis, right shoulder; Z90.49 Acquired absence of other specified parts of digestive tract

== ENCOUNTER → 2022-01-31 | Outpatient (CLI) | payer OTHER ==
[~2022-01-31] MED LIST changes: +PERCOCET PO
== END ==
LOC: M SOG 16:16
PROVIDERS: ATTEND Physician Assistant
DX: M25.611 Stiffness of right shoulder, not elsewhere classified (principal); Z47.89 Encounter for other orthopedic aftercare; M19.011 Primary osteoarthritis, right shoulder

== ENCOUNTER → 2022-05-15 | Outpatient (CLI) | payer OTHER ==
[2022-05-15 18:03] LABS: BASO % 0.3 % (0.0-1.0); EOS # 0.2 10^3/uL (0.0-0.5); EOS % 2.6 % (0.0-3.0); HEMATOCRIT 41.7 % (42.0-52.0); HEMOGLOBIN 14.1 g/dl (13.5-17.5); LYMPH # 2.4 10^3/uL (1.5-5.0); LYMPH % 32.1 % (24.0-44.0); MEAN CORPUSCULAR HGB CONC 33.8 g/dl (32.0-36.5); MEAN CORPUSCULAR VOLUME 94.6 fl (80.0-96.0); MONO # 0.7 10^3/uL (0.0-0.8); MONO % 9.5 % (2.0-8.0); NEUTROPHILS # 4.1 10^3/uL (1.5-8.5); NEUTROPHILS % 55.2 % (36.0-66.0); PLATELET COUNT, AUTOMATED 175 10^3/uL (150-450); RED BLOOD COUNT 4.41 10^6/uL (4.30-6.10); WHITE BLOOD COUNT 7.4 10^3/uL (4.0-10.0)
[2022-05-15 19:03] LABS: ALBUMIN 3.9 GM/DL (3.2-5.2); ALT/SGPT 17 U/L (12-78); BILIRUBIN,TOTAL 0.3 MG/DL (0.2-1.0); BLOOD UREA NITROGEN 16 MG/DL (7-18); CALCIUM LEVEL 8.8 MG/DL (8.8-10.2); CARBON DIOXIDE LEVEL 23 MEQ/L (21-32); CHLORIDE LEVEL 109 MEQ/L (98-107); CHOLESTEROL LEVEL 154 MG/DL (<200); CHOLESTEROL RISK RATIO 4.666 (<5); CREATININE FOR GFR 1.21 MG/DL (0.70-1.30); GLOMERULAR FILTRATION RATE > 60.0 (>49); GLUCOSE, FASTING 82 MG/DL (70-100); HDL CHOLESTEROL 33 MG/DL (>40); LDL CHOLESTEROL 83 MG/DL (<100); NON-HDL-C 121 MG/DL; SODIUM LEVEL 137 MEQ/L (136-145); TOTAL PROTEIN 7.2 GM/DL (6.4-8.2); TRIGLYCERIDES LEVEL 190 MG/DL (<150)
== END ==
LOC: M LAB 16:53
PROVIDERS: ATTEND Nurse Practitioner Family
DX: Z00.00 Encounter for general adult medical examination without abnormal findings (principal); E78.2 Mixed hyperlipidemia; Z12.5 Encounter for screening for malignant neoplasm of prostate
CPT/HCPCS: 36415; 80053; 80061; 85025; G0103

== ENCOUNTER 2022-08-14 08:57 | Emergency (ER) | payer OTHER, SELFPAY ==
[~2022-08-14] VITALS: Ht 177.8 cm; Wt 99.2 kg
[2022-08-14] MEDS ORDERED: NAPR220C14 PO (09:06)
[2022-08-14] MEDS ORDERED: ASPECRE TOP (09:06)
[2022-08-14] MEDS ORDERED: LIDO5DIS41 TOP (09:59)
[2022-08-14] MEDS ORDERED: VALI5TAB PO ×3 (09:59→13:25)
[2022-08-14 10:02] VITALS: BP 155/81
[2022-08-14] MEDS ORDERED: CYCL5TAB PO (10:12)
== END 2022-08-14 10:17 | disposition home or self-care (01) ==
LOC: M ED 08:57
DX: S46.812A Strain of other muscles, fascia and tendons at shoulder and upper arm level, left arm, initial encounter (principal); X50.0XXA Overexertion from strenuous movement or load, initial encounter; Y99.0 Civilian activity done for income or pay; F17.200 Nicotine dependence, unspecified, uncomplicated; Z79.899 Other long term (current) drug therapy

== ENCOUNTER 2022-11-08 21:42 | Emergency (ER) | payer OTHER ==
[~2022-11-08] VITALS: Ht 180.3 cm; Wt 100.0 kg
[~2022-11-08 21:42] MED LIST changes: +ASPECRE TOP; +CYCL5TAB PO; +LIDO5DIS41 TOP; +NAPR220C14 PO; +VALI5TAB PO
[2022-11-09 03:27] VITALS: BP 138/74
== END 2022-11-09 04:02 | disposition left against medical advice (07) ==
LOC: M ED 21:42
DX: Z53.21 Procedure and treatment not carried out due to patient leaving prior to being seen by health care provider (principal)

== ENCOUNTER 2022-11-09 10:22 | Emergency (ER) | payer OTHER ==
[~2022-11-09] VITALS: Ht 177.8 cm; Wt 99.4 kg
[2022-11-09 12:35] VITALS: BP 156/70
== END 2022-11-09 12:41 | disposition home or self-care (01) ==
LOC: M ED 10:22
DX: S80.912A Unspecified superficial injury of left knee, initial encounter (principal); M25.561 Pain in right knee; W00.0XXA Fall on same level due to ice and snow, initial encounter; C18.9 Malignant neoplasm of colon, unspecified; F17.200 Nicotine dependence, unspecified, uncomplicated; Y99.0 Civilian activity done for income or pay

== ENCOUNTER → 2022-11-23 | Outpatient (CLI) | payer OTHER | LOC: M SOG 08:28 | PROVIDERS: ATTEND Orthopaedic Surgery | DX: M25.561 Pain in right knee (principal); M25.562 Pain in left knee ==

== ENCOUNTER → 2022-12-07 | Outpatient (CLI) | payer OTHER | LOC: M PLAIMG 06:38 | PROVIDERS: ATTEND Orthopaedic Surgery | DX: S83.412A Sprain of medial collateral ligament of left knee, initial encounter (principal); S82.001A Unspecified fracture of right patella, initial encounter for closed fracture; Y93.9 Activity, unspecified; Y92.9 Unspecified place or not applicable ==